=== PATIENT | male | born 1955 | race Caucasian/White ===

== ENCOUNTER → 2016-07-27 | Outpatient (CLI) | payer OTHER | LOC: FIMAGING 07:10 | PROVIDERS: ATTEND Internal Medicine | DX: B18.2 Chronic viral hepatitis C (principal) ==

== ENCOUNTER → 2017-08-09 | Outpatient (CLI) | payer OTHER | LOC: CIMAGING 08:13 | PROVIDERS: ATTEND Internal Medicine | DX: K74.60 Unspecified cirrhosis of liver (principal); K76.9 Liver disease, unspecified | CPT/HCPCS: 76705-PO ==

== ENCOUNTER → 2017-10-09 | Day surgery (SDC) | payer OTHER ==
[~2017-10-09] MED LIST: ALTEPLASE 2 MG VIAL IVP PRN; DEXAMETHASONE 10 MG/ML VIAL IVP ONE; DOXORUBICIN MISC ONE; FLUMAZENIL 0.5 MG/5 ML MDV IVP PRN; GLUCAGON HCL 1 MG VIAL IVP PRN; HEPARIN 10,000 UNIT/10 ML MDV (1,000 UNIT/ML) IVP PRN; IOPAMIDOL (ISOVUE-300) 100 ML BTL ONE; LIDOCAINE 1% 300 MG/30 ML SDV ONE; MEPERIDINE 25 MG/ML SYR IVP PRN; MICRON MICROSPH MISC ONE; MIDAZOLAM 2 MG/2 ML VIAL IVP PRN; NALOXONE HCL 0.4 MG/ML INJ IVP PRN; NS 1,000 ML IV SCH; ONDANSETRON 4 MG/2 ML VIAL IVP ONE; PROTAMINE SULFATE 50 MG/5 ML VIAL IVP PRN; SCOPOLAMINE HYDROBROMIDE 1 MG/3 DAYS PATCH TD ONE; fentaNYL 100 MCG/2 ML INJ IVP PRN; oxyCODONE IR 5 MG TAB PO PRN
--- NOTE | 2017-10-09 10:03 | PDGENHP ---
History & Physical Chief Complaint: CIRRHOSIS; HCC History of Present Illness: POSSIBLE SINGLE RT DOME HCC. HERE FOR TACE. POSIBLE SMALLER LESIONS LT AND RT LOBE. Pertinent Past, Social, Family History: HEP C. NONE SMOKER. PRIOR KIDNEY STONES. DEPRESSION, ANXIETY. Relevant Physical Exam: NO DISCOMFORT. Cardiorespiratory Assessment: RRR, CTA
--- NOTE | 2017-10-09 10:04 | PDPROPOC ---
Sedation Plan of Care Sedation Plan of Care: vital signs stable, mental status noted, patient educated of risks, benefits, alternatives, patient can tolerate sedation ASA Classification: ASA 3 Planned drugs: fentanyl, midazolam Mallampati Score: Class 3 Mallampati Reference Image: Patient passed 3-3-2 rule?: Yes
[2017-10-09 12:40] VITALS: BP 132/88
--- NOTE | 2017-10-09 12:41 | PDRADPN ---
Radiology Procedure Note Date of Procedure: 10/09/17 Radiologist: Elizabet Aldana Anesthesia: IV Sedation Pre-op Diagnosis: HEP C, HCC Post-op Diagnosis: SAME Indication: LUIS CARLOS; TRANSPLANT WORK UP Procedure: SUPERSELECTIVE TACE Finding(s): SINGLE VESSEL FEEDING TUMOR FOUND. Inf/Abcess present in the surg proc area at time of surgery?: No Complications: NONE IMMEDIATELY.
== END | disposition home or self-care (01) ==
LOC: FIMAGING 08:30 → F1N 09:28 → UNDOADMIN 09:28
PROVIDERS: ATTEND Radiology Diagnostic Radiology
PROC: 04L33DZ Occlusion of Hepatic Artery with Intraluminal Device, Percutaneous Approach (ICD-10-PCS; principal; 2017-10-09)
PROC: B4121ZZ Fluoroscopy of Hepatic Artery using Low Osmolar Contrast (ICD-10-PCS; principal; 2017-10-09)
DX: C22.0 Liver cell carcinoma (principal); K74.60 Unspecified cirrhosis of liver; Z87.442 Personal history of urinary calculi; F41.8 Other specified anxiety disorders
CPT/HCPCS: 36246; 36247; 37243; 75726; 99152; 99153; C1769; C1894; J1100; J1644; J1956; J2250; J2310; J3010; J9000; Q9967

== ENCOUNTER 2017-11-13 07:15 | Day surgery (SDC) | payer OTHER ==
[2017-11-13] MEDS ORDERED: FLUMAZENIL 0.5 MG/5 ML MDV IVP PRN (07:30)
[2017-11-13] MEDS ORDERED: GLUCAGON HCL 1 MG VIAL IVP PRN (07:30)
[2017-11-13] MEDS ORDERED: fentaNYL 100 MCG/2 ML INJ IVP PRN (07:30)
[2017-11-13] MEDS ORDERED: PROTAMINE SULFATE 50 MG/5 ML VIAL IVP PRN (07:30)
[2017-11-13] MEDS ORDERED: ALTEPLASE 2 MG VIAL IVP PRN (07:30)
[2017-11-13] MEDS ORDERED: NS 1,000 ML IV SCH (07:30)
[2017-11-13] MEDS ORDERED: MIDAZOLAM 2 MG/2 ML VIAL IVP PRN (07:30)
[2017-11-13] MEDS ORDERED: NALOXONE HCL 0.4 MG/ML INJ IVP PRN (07:30)
[2017-11-13] MEDS ORDERED: HEPARIN 10,000 UNIT/10 ML MDV (1,000 UNIT/ML) IVP PRN (07:30)
[2017-11-13 08:23] LABS: PLATELET COUNT 198 10^3/uL (150-400)
[2017-11-13 08:37] LABS: INR 1.03 (0.83-1.16); PROTIME(PATIENT) 13.7 SEC (12.0-15.0)
--- NOTE | 2017-11-13 09:08 | PDGENHP ---
History & Physical Chief Complaint: HCC. NEW L4 LESION. SAMPLING NEEDED History of Present Illness: S/P TACE ON RT HPEATIC DOME LESION. MULTIPLE NEW LESIONS. LIKELY NOT A TRANSPLANT CANDIDATE AT THIS TIME. Pertinent Past, Social, Family History: SUPPORTIVE . NON SMOKER. Relevant Physical Exam: A X O X 3. NO PAIN. Cardiorespiratory Assessment: RRR, CTA
--- NOTE | 2017-11-13 09:09 | PDPROPOC ---
Sedation Plan of Care Sedation Plan of Care: vital signs stable, mental status noted, patient educated of risks, benefits, alternatives, patient can tolerate sedation ASA Classification: ASA 2 Planned drugs: fentanyl, midazolam Mallampati Score: Class 2 Mallampati Reference Image: Patient passed 3-3-2 rule?: Yes
[2017-11-13] MEDS ORDERED: LIDO/EPI 1% **for epidural** 30 ML SDV ONE (10:31)
[2017-11-13] MEDS ORDERED: BUPIVACAINE 0.5% 30 ML SDV ONE (10:31)
[2017-11-13] MEDS ORDERED: IOPAMIDOL (ISOVUE-M 300) 15 ML VIAL ONE (10:31)
--- NOTE | 2017-11-13 10:48 | PDRADPN ---
Radiology Procedure Note Date of Procedure: 11/13/17 Radiologist: Elizabet Aldana Anesthesia: IV Sedation Pre-op Diagnosis: Hcc Post-op Diagnosis: same Indication: L4 lytic lesion, needing sampling Procedure: L4 biopsy Finding(s): adequate tissue was obtained per pathology Inf/Abcess present in the surg proc area at time of surgery?: No Specimen(s): L4 bone cores.
[2017-11-13 12:25] VITALS: BP 128/85
== END 2017-11-13 11:58 | disposition home or self-care (01) ==
LOC: FIMAGING 07:15
PROVIDERS: ATTEND Radiology Diagnostic Radiology
PROC: 0QB03ZX Excision of Lumbar Vertebra, Percutaneous Approach, Diagnostic (ICD-10-PCS; principal; 2017-11-13 10:54)
DX: C79.51 Secondary malignant neoplasm of bone (principal); C22.0 Liver cell carcinoma
CPT/HCPCS: J2250; J2310; J3010; Q9967

== ENCOUNTER → 2017-11-22 | Outpatient (CLI) | payer OTHER | LOC: FIMAGING 09:09 | PROVIDERS: ATTEND Internal Medicine Hematology & Oncology | DX: C79.51 Secondary malignant neoplasm of bone (principal); C22.9 Malignant neoplasm of liver, not specified as primary or secondary | CPT/HCPCS: 78306; A9503 ==

== ENCOUNTER 2018-01-15 07:49 | Day surgery (SDC) | payer OTHER ==
[2018-01-15] MEDS ORDERED: IOPAMIDOL (ISOVUE-370) 150 ML BTL IV ONE ×2 (08:06→08:08)
[2018-01-15] MEDS ORDERED: methylPREDNISolone SOD SUCC 125 MG/2 ML VIAL IVP ONE (08:10)
[2018-01-15] MEDS ORDERED: PANTOPRAZOLE SODIUM 40 MG VIAL IVP ONE (08:10)
[2018-01-15] MEDS ORDERED: FLUMAZENIL 0.5 MG/5 ML MDV IVP PRN (08:10)
[2018-01-15] MEDS ORDERED: NS 1,000 ML IV ONE (08:10)
[2018-01-15] MEDS ORDERED: HEPARIN 10,000 UNIT/10 ML MDV (1,000 UNIT/ML) IVP PRN (08:10)
[2018-01-15] MEDS ORDERED: NALOXONE HCL 0.4 MG/ML INJ IVP PRN (08:10)
[2018-01-15] MEDS ORDERED: ALTEPLASE 2 MG VIAL IVP PRN (08:10)
[2018-01-15] MEDS ORDERED: fentaNYL 100 MCG/2 ML INJ IVP PRN (08:10)
[2018-01-15] MEDS ORDERED: PROTAMINE SULFATE 50 MG/5 ML VIAL IVP PRN (08:10)
[2018-01-15] MEDS ORDERED: MIDAZOLAM 2 MG/2 ML VIAL IVP PRN (08:10)
[2018-01-15 09:22] LABS: INR 1.14 (0.83-1.16)
--- NOTE | 2018-01-15 09:35 | PDPROPOC ---
Sedation Plan of Care Sedation Plan of Care: vital signs stable, mental status noted, patient educated of risks, benefits, alternatives, patient can tolerate sedation ASA Classification: ASA 3 Planned drugs: fentanyl, midazolam Mallampati Score: Class 2 Mallampati Reference Image: Patient passed 3-3-2 rule?: Yes
--- NOTE | 2018-01-15 09:38 | PDGENHP ---
History & Physical Chief Complaint: HCC History of Present Illness: KNOWN HCC. HEP B. S/P CHEMOEMBOLIZATION. NOW WITH PROGRESSION. HERE FOR Y90 PLANNING. Pertinent Past, Social, Family History: SUPPORTIVE . NON-SMOKER. Relevant Physical Exam: SLIGTLY SLEEPY, MIGHT BE FROM THE SORFENIB. Cardiorespiratory Assessment: RRR, CTA
[2018-01-15 10:38] LABS: PROTIME(PATIENT) 14.8 SEC (12.0-15.0)
[2018-01-15] MEDS ORDERED: IOPAMIDOL (ISOVUE-300) 100 ML BTL ONE (10:45)
[2018-01-15 11:10] VITALS: BP 140/82
[2018-01-15] MEDS ORDERED: OXYCODONE/APAP 5/325 TAB PO PRN (12:51)
--- NOTE | 2018-01-15 13:48 | PDRADPN ---
Radiology Procedure Note Date of Procedure: 01/22/18 Radiologist: Elizabet Aldana Anesthesia: IV Sedation Pre-op Diagnosis: hcc Post-op Diagnosis: same Indication: Y90 TREATMENT PLANNING Procedure: VISCERAL ANGIOGRAM WITH MAPPING Inf/Abcess present in the surg proc area at time of surgery?: No
== END 2018-01-15 14:34 | disposition home or self-care (01) ==
LOC: FIMAGING 07:49
PROVIDERS: ATTEND Radiology Diagnostic Radiology
DX: C22.9 Malignant neoplasm of liver, not specified as primary or secondary (principal); F17.210 Nicotine dependence, cigarettes, uncomplicated
CPT/HCPCS: 36247; 75726; 78201; 99152; 99153; A9540; C1769; C1894; C1760; J1200; J1644; J2250; J2310; J2930; J3010; Q9967

== ENCOUNTER → 2018-01-26 | Day surgery (SDC) | payer OTHER ==
[~2018-01-26] MED LIST changes: -DEXAMETHASONE 10 MG/ML VIAL IVP ONE; -DOXORUBICIN MISC ONE; +FLUMAZENIL 0.5 MG/5 ML MDV IVP ONE; -LIDOCAINE 1% 300 MG/30 ML SDV ONE; -MICRON MICROSPH MISC ONE; +MIDAZOLAM 2 MG/2 ML VIAL ONE; +NALOXONE HCL 0.4 MG/ML INJ ONE; +NS 1,000 ML IV ONE; -NS 1,000 ML IV SCH; -ONDANSETRON 4 MG/2 ML VIAL IVP ONE; +ONDANSETRON 4 MG/2 ML VIAL IVP PRN; +OXYCODONE/APAP 5/325 TAB PO PRN; +PANTOPRAZOLE SODIUM 40 MG VIAL IVP ONE; -SCOPOLAMINE HYDROBROMIDE 1 MG/3 DAYS PATCH TD ONE; +fentaNYL 100 MCG/2 ML INJ ONE; +methylPREDNISolone SOD SUCC 125 MG/2 ML VIAL IVP ONE; -oxyCODONE IR 5 MG TAB PO PRN
[2018-01-26 11:05] LABS: PLATELET COUNT 176 10^3/uL (150-400)
--- NOTE | 2018-01-26 11:40 | PDGENHP ---
History & Physical Chief Complaint: LIVER HCC History of Present Illness: CONTINUED PROGRESSION OF HCC IN RT HEPATIC LOBE Pertinent Past, Social, Family History: ON SORAFINIB. DEPRESSION, ANXIETY. PRIOR KIDNEY STONES. Relevant Physical Exam: SLIGHTLY FATIGED. SLIGHT DECREASE IN APPETITE. Cardiorespiratory Assessment: RRR, CTA
[2018-01-26 11:48] LABS: INR 1.07 (0.83-1.16); PROTIME(PATIENT) 14.1 SEC (12.0-15.0)
[2018-01-26 13:06] VITALS: BP 142/91
--- NOTE | 2018-01-26 13:29 | PDRADPN ---
Radiology Procedure Note Date of Procedure: 01/26/18 Radiologist: Elizabet Aldana Anesthesia: IV Sedation Pre-op Diagnosis: HCC Post-op Diagnosis: same Indication: Y90 treatment Procedure: Y90 radioembolization Inf/Abcess present in the surg proc area at time of surgery?: No
== END | disposition home or self-care (01) ==
LOC: FIMAGING 09:47
PROVIDERS: ATTEND Internal Medicine Hematology & Oncology
PROC: 04L33DZ Occlusion of Hepatic Artery with Intraluminal Device, Percutaneous Approach (ICD-10-PCS; principal; 2018-01-26)
PROC: B4121ZZ Fluoroscopy of Hepatic Artery using Low Osmolar Contrast (ICD-10-PCS; principal; 2018-01-26)
DX: C22.0 Liver cell carcinoma (principal)
CPT/HCPCS: 36247; 37243; 75726; 77790; 78201; 79445; 99152; C1769; C1894; C1760; J1200; J1644; J2250; J2310; J2930; J3010; Q9967

== ENCOUNTER → 2018-02-22 | Outpatient (CLI) | payer OTHER | LOC: FIMAGING 10:35 | PROVIDERS: ATTEND Internal Medicine Hematology & Oncology | DX: C22.9 Malignant neoplasm of liver, not specified as primary or secondary (principal); C79.51 Secondary malignant neoplasm of bone | CPT/HCPCS: 78306; A9503 ==

== ENCOUNTER → 2018-03-16 | Outpatient (CLI) | payer OTHER | LOC: FIMAGING 16:18 | PROVIDERS: ATTEND Radiology Diagnostic Radiology | DX: Z09 Encounter for follow-up examination after completed treatment for conditions other than malignant neoplasm (principal) ==

== ENCOUNTER 2018-04-14 21:49 | Inpatient (IN) | payer OTHER ==
--- NOTE | 2018-04-14 21:59 | EDPHY ---
H & P Time Seen by Provider: 04/14/18 21:59 HPI/ROS: HPI CHIEF COMPLAINT: Abdominal pain. HISTORY OF PRESENT ILLNESS: This is a 62-year-old male, stage IV liver cancer, presents emergency room with abdominal pain. He states approximately 3 hr ago he started developing mid abdominal pain. Nonradiating describes as sharp stabbing center of his abdomen. Associated nausea but no vomiting. Denies urinary symptoms denies back pain, denies chest pain or shortness of breath. No fever. Patient is on chemotherapy. Arrives by private vehicle with his at bedside. Pain is currently 10. Hematology Dr. Marrero Past Medical History: Stage IV liver CA. Past Surgical History: No recent surgery Social History: Denies drugs alcohol tobacco. On chronic opioids. Family History: Noncontributory ROS REVIEW OF SYSTEMS: 10 Systems were reviewed and negative with the exception of the elements mentioned in the history of present illness. Exam Constitutional triage nursing summary reviewed, vital signs reviewed, awake/ alert. Eyes normal conjunctivae and sclera, EOMI, PERRLA. HENT normal inspection, atraumatic, moist mucus membranes, no epistaxis, neck supple/ no meningismus, no raccoon eyes. Respiratory clear to auscultation bilaterally, normal breath sounds, no respiratory distress, no wheezing. Cardiovascular rate normal, regular rhythm, no murmur, no edema, distal pulses normal. Gastrointestinal tender palpation mid abdomen, no peritoneal signs, no rebound , no guarding, normal bowel sounds, no distension, no pulsatile mass. Genitourinary no CVA tenderness. Musculoskeletal no midline vertebral tenderness, full range of motion, no calf swelling, no tenderness of extremities, no meningismus, good pulses, neurovascularly intact. Skin pink, warm, & dry, no rash, skin atraumatic. Neurologic awake, alert and oriented x 3, AAOx3, moves all 4 extremities equally, motor intact, sensory intact, CN II-XII intact, normal cerebellar, normal vision, normal speech. Psychiatric normal mood/affect. Heme/Lymph/Immune no lymphadenopathy. Differential diagnosis includes but is not limited to and in no particular order : Bowel obstruction, appendicitis, gallbladder disease, diverticulitis, colitis , enteritis, perforated viscus, gastritis, GERD, esophagitis, urinary tract infection, pyelonephritis, kidney stones Medical Decision Making: Plan for this patient IV establishment IV fluid bolus , IV Dilaudid 1 mg for pain control, basic blood work, lactic acid, EKG, KUB, CT scan abdomen pelvis with IV contrast Re-evaluation: EKG interpretation by me on record in fypio system. Impression time of EKG 2200: Sinus rhythm rate of 66, no signs of acute ischemia. Some motion artifact seen in V3. No ST elevation. 2330: CT SCAN REVIEWED. THIS SHOWS COLITIS. IV Cipro and IV Flagyl ordered. Blood cultures ordered Trending lactic acids. IV Dilaudid for pain control Patient been ordered 2 L of fluid. IV Cipro and IV Flagyl ordered. Discussed the case with the hospitalist service Dr. Jernigan agrees to admit Source: Patient - Medical/Surgical History Hx Asthma: No Hx Chronic Respiratory Disease: No Hx Diabetes: No Hx Cardiac Disease: No Hx Renal Disease: No Hx Cirrhosis: No Hx Alcoholism: No Hx HIV/AIDS: No Hx Splenectomy or Spleen Trauma: No Other PMH: HEP C - Social History Smoking Status: Never smoked Constitutional: Initial Vital Signs Temperature (C) 36.9 C 04/14/18 22:00 Heart Rate 75 04/14/18 22:00 Respiratory Rate 20 04/14/18 22:00 Blood Pressure 175/105 H 04/14/18 22:00 O2 Sat (%) 99 04/14/18 22:00 O2 Delivery Mode Nasal Cannula O2 (L/minute) 2 Allergies/Adverse Reactions: Penicillins Allergy (Unknown, Verified 09/27/17 17:51) Pt states sister is allergic so he has never taken it Home Medications: Medication Instructions Recorded Hydrochlorothiazide 25 mg PO DAILY 11/17/15 Pantoprazole Sodium [Protonix] 40 mg PO BID 11/17/15 Potassium Chloride 10 meq PO DAILY 11/17/15 Escitalopram Oxalate [Lexapro] 30 mg PO DAILY 09/27/17 Sorafenib Tosylate [Nexavar] 400 mg PO BID 01/15/18 Codeine Sulf [Codeine 30 mg (*)] 30 mg PO Q3 04/15/18 Levothyroxine [Synthroid 112 mcg 112 mcg PO DAILY06 04/15/18 (*)] Medical Decision Making - Data Points Laboratory Results: Laboratory Results 04/15/18 05:45 04/15/18 05:45 Medications Given: Enoxaparin Sodium (Lovenox) 40 mg SC DAILY [facility] Stop: 10/12/18 08:59 Last Admin: 04/15/18 09:11 Dose: 40 mg Escitalopram Oxalate (Lexapro) 30 mg PO DAILY [facility] Stop: 10/12/18 14:59 Last Admin: 04/15/18 15:11 Dose: 30 mg Ciprofloxacin/Dextrose (Cipro 200 Mg (Premix)) 100 mls @ 100 mls/hr IV Q12H [facility] PRN Reason: Protocol Stop: 05/15/18 11:59 Last Admin: 04/15/18 13:22 Dose: 100 mls Metronidazole/Sodium Chloride (Flagyl 500 Mg (Premix)) 100 mls @ 100 mls/hr IV Q8H [facility] PRN Reason: Protocol Stop: 05/15/18 09:59 Last Admin: 04/15/18 17:58 Dose: 100 mls [facility]othy[facility]ine S[facility]) [facility] Stop: 10/12/18 14:59 Last Admin: 04/15/18 15:11 Dose: 112 mcg Morphine Sulfate (Morphine) 1 - 2 mg IVP Q2HRS PRN PRN Reason: Pain, Severe Unable to Take PO Stop: 04/24/18 23:37 Last Admin: 04/15/18 11:53 Dose: 2 mg Oxycodone HCl (Oxycodone Ir) 5 - 10 mg PO Q3HRS PRN PRN Reason: Pain, Severe Able to Take PO Stop: 04/24/18 23:37 Last Admin: 04/15/18 17:55 Dose: 10 mg Senna/Docusate Sodium (Senokot-S) 1 - 2 tab PO BID [facility] PRN Reason: Protocol Stop: 10/12/18 08:59 Last Admin: 04/15/18 09:11 Dose: 2 tab Discontinued Medications Hydromorphone HCl (Dilaudid) 1 mg IVP EDNOW ONE Stop: 04/14/18 22:04 Last Admin: 04/14/18 22:14 Dose: 1 mg Hydromorphone HCl (Dilaudid) 0.5 mg IVP EDNOW ONE Stop: 04/15/18 00:29 Last Admin: 04/15/18 01:03 Dose: Not Given Hydromorphone HCl (Dilaudid) 1 mg IVP EDNOW ONE Stop: 04/15/18 00:33 Last Admin: 04/15/18 00:33 Dose: 1 mg Sodium Chloride (Ns) 1,000 mls @ 0 mls/hr IV EDNOW ONE; Wide Open PRN Reason: Protocol Stop: 04/14/18 22:04 Last Admin: 04/14/18 22:13 Dose: 1,000 mls Sodium Chloride (Ns) 1,000 mls @ 0 mls/hr IV ONCE ONE PRN Reason: Wide Open Stop: 04/14/18 22:20 Last Admin: 04/14/18 23:04 Dose: 1,000 mls Potassium Chloride (Potassium Cl 20 Meq (Premix)) 100 mls @ 50 mls/hr IV EDNOW ONE Stop: 04/15/18 00:40 Last Admin: 04/14/18 23:04 Dose: 100 mls Ciprofloxacin/Dextrose (Cipro 400 Mg (Premix)) 200 mls @ 200 mls/hr IV EDNOW ONE PRN Reason: Protocol Stop: 04/15/18 00:28 Last Admin: 04/15/18 00:13 Dose: 200 mls Metronidazole/Sodium Chloride (Flagyl 500 Mg (Premix)) 100 mls @ 100 mls/hr IV EDNOW ONE PRN Reason: Protocol Stop: 04/15/18 00:28 Last Admin: 04/15/18 02:04 Dose: 100 mls Potassium Chloride/Sodium Chloride (Ns W/ 20 Kcl/L) 1,000 mls @ 100 mls/hr IV ONCE ONE Stop: 04/15/18 09:37 Last Admin: 04/15/18 01:41 Dose: 1,000 mls Magnesium Oxide (Magnesium Oxide) 400 mg PO ONCE ONE Stop: 04/15/18 01:01 Last Admin: 04/15/18 01:40 Dose: 400 mg Promethazine HCl (Phenergan) 6.25 mg IVP ONCE ONE Stop: 04/14/18 22:19 Last Admin: 04/14/18 22:19 Dose: 6.25 mg Point of Care Test Results: Chemistry 04/14/18 04/14/18 22:20 22:17 POC Sodium 141 mEq/L mEq/L (135-145) POC Potassium 2.2 mEq/L L* mEq/L (3.3-5.0) POC Chloride 98 mEq/L mEq/L (97-110) POC BUN 3 mg/dL L mg/dL (7-23) POC Creatinine 0.7 mg/dL mg/dL (0.7-1.3) POC Glucose 141 mg/dL H mg/dL (70-100) POC Troponin I 0.01 ng/mL ng/mL (0.00-0.08) ISTAT H&H 04/14/18 22:17 POC Hgb 16.0 gm/dL gm/dL (13.7-17.5) POC Hct 47 % % (40-51) Departure - Departure Disposition: [facility] Inpatient Acute Clinical Impression: Hepatocellular carcinoma, Hypokalemia, Colitis Abdominal pain Qualifiers: Abdominal location: generalized Qualified Code(s): R10.84 - Generalized abdominal pain Condition: Fair
[2018-04-14] MEDS ORDERED: NS 1,000 ML IV ONE ×2 (22:03→22:19)
[2018-04-14] MEDS ORDERED: HYDROmorphONE/DILAUDID 2 MG/ML INJ IVP ONE (22:03)
[2018-04-14 22:17] LABS: PLATELET COUNT 172 10^3/uL (150-400)
[2018-04-14] MEDS ORDERED: PROMETHAZINE HCL 25 MG/ML INJ ONE (22:17)
[2018-04-14] MEDS ORDERED: PROMETHAZINE HCL 25 MG/ML INJ IVP ONE (22:18)
[2018-04-14] MEDS ORDERED: IOPAMIDOL (ISOVUE-300) 100 ML BTL ONE (22:23)
[2018-04-14 22:24] LABS: INR 1.2 (0.83-1.16); PROTIME(PATIENT) 15.4 SEC (12.0-15.0)
[2018-04-14] MEDS ORDERED: POTASSIUM Cl (KCl) 100 ML IV ONE (22:41)
[2018-04-14] MEDS ORDERED: CIPROFLOXACIN 400 MG/DEXTROSE 200 ML IV ONE (23:29)
[2018-04-14] MEDS ORDERED: NS W/ 20 KCl/L 1,000 ML IV ONE (23:38)
[2018-04-14] MEDS ORDERED: LORazepam 0.5 MG TAB PO PRN (23:38)
[2018-04-14] MEDS ORDERED: ONDANSETRON 4 MG/2 ML VIAL IVP PRN (23:38)
[2018-04-14] MEDS ORDERED: ACETAMINOPHEN 325 MG TAB PO PRN (23:38)
[2018-04-14] MEDS ORDERED: ONDANSETRON DISINTEGRATING 4 MG TAB PO PRN (23:38)
[2018-04-15] MEDS ORDERED: HYDROmorphONE/DILAUDID 2 MG/ML INJ IVP ONE (00:28)
[2018-04-15] MEDS ORDERED: HYDROmorphONE/DILAUDID 1 MG/ML INJ ONE (00:29)
[2018-04-15] MEDS ORDERED: HYDROmorphONE/DILAUDID 1 MG/ML INJ IVP ONE (00:32)
[2018-04-15] MEDS ORDERED: MAGNESIUM OXIDE 400 MG TAB PO ONE (01:00)
[2018-04-15] MEDS ORDERED: POLYETHYLENE GLYCOL 3350 17 GM PKT PO PRN (04:26)
--- NOTE | 2018-04-15 05:17 | GHP ---
DATE OF ADMISSION: 04/14/2018 PRIMARY ONCOLOGIST: Dr. Marrero. Patient provides history, appears reliable. EMR was reviewed and case discussed with ED provider. CHIEF COMPLAINT: Abdominal pain. HISTORY OF PRESENT ILLNESS: This is a very pleasant 62-year-old gentleman with past medical history significant for stage IV hepatocellular carcinoma, treated HCV, anxiety, depression, HTN, GERD, hypot hyroidism, presents to the emergency department today with complaints of several hours of increasing upper abdominal pain that started approximately 3 hours before arriving to the ED. Patient reports m id upper abdominal pain that is sharp, stabbing in nature. The pain does not radiate to his back or into his chest. He does report episode of nausea en route to the emergency department without any vo miting. The patient denies any fevers or chills. He has had declining appetite since December owing a procedure. He denies any melena, hematochezia. He has not passed any gas or had a bowel mov ement recently. The patient does note he has had declining weight. REVIEW OF SYSTEMS: Ten systems reviewed and negative except as noted above. ALLERGIES: Penicillin listed. The patient reports his sister had severe allergy, but he has never h ad any penicillin given to him. HOME MEDICATIONS: Sorafenib, potassium chloride, Protonix, levothyroxine, hydrochlorothiazide, fish oil, escitalopram. PAST MEDICAL HISTORY: Significant for hepatocellular carcinoma stage IV, history of cirrhosis, hep C treated, kidney stones, depression, anxiety, HTN, GERD, hypothyroidism, liver cancer stage IV. We w ill notify Oncology of patient's admission. He is normally followed by Dr. Marrero. PAST SURGICAL HISTORY: Patient reports liver chemoembolization. FAMILY HISTORY: Sister with a penicillin allergy. No family members with liver issues. SOCIAL HISTORY: Patient is , lives with his . Code status is full. PHYSICAL EXAMINATION: VITAL SIGNS: Upon arrival to the emergency department, blood pressure is 125/ 105, heart rate 75, respiratory rate 20, O2 saturation 99% on room air, temperature 36.9. Vital sign s currently available, blood pressure 131/95, heart rate is 100, respiratory rate 16, O2 saturation i s 97% on 2 L by nasal cannula, temperature 36.8. GENERAL: No acute distress. Very pleasant adult g gurvinder, appears slightly older than stated age, who is lying quietly in bed. Does appear quite fat igued and unwell but nontoxic. HEAD: Normocephalic, atraumatic. EYES: Extraocular muscles are grossly intact. Pupils equal, round, decreased reactivity to light bi laterally and symmetric. No scleral icterus or conjunctival injection. ENT: Mucous membranes appea r quite dry. Dentition intact. No nasal discharge. NECK: Supple. Trachea midline. CARDIOVASCULA R: Regular rate and rhythm. No murmurs, rubs, or gallops appreciated. Rate slightly tachy. No kimberly st wall tenderness to palpation. RESPIRATORY: Unlabored breathing. Lungs are clear to auscultation bilaterally. No wheezes, rales, or rhonchi. Patient's lung bases are diminished due to decreased i nspiratory effort. ABDOMEN: Mildly distended. Patient with significant tenderness to palpation upper abdomen and right upper quadrant. No rebound, guarding, or masses appreciated, but exam limited due to patient pain w ith deeper palpation. Hypoactive bowel sounds present. : No suprapubic tenderness to palpation. No Brian catheter in place. EXTREMITIES: Generalized weakness. Patient does move all extremities while lying in bed. He does appear fatigued. Grossly normal otherwise. NEUROLOGIC: Grossly nonfoc al. No facial drooping. Moves all extremities as noted above. Sensation intact. PSYCHIATRIC: Aff ect slightly flat, but patient does appear fatigued and unwell. DATA REVIEWED: WBC 6.30, H and H 15.7 and 43.7, MCV of 87.1, platelet count is 172, neutrophil perce nt 74.4. Sodium is 138, potassium 2.6, chloride is 100, CO2 is 23, anion gap 15, BUN 6, creatinine 0 .7. GFR 60, glucose 142, calcium 9.3, magnesium 1.8, total bilirubin is 2.0, unconjugated 1.2, ALT 6 5, AST is 84, alkaline phosphatase is 148, total protein is 8.6, albumin 4.3, lipase 120. PT is 15.4 , INR 1.20, PTT is 28.3, lactic acid , repeat is 1.2. UA specific gravity 1.021 with pH of 7.0, negative otherwise. EKG reviewed myself, showing normal sinus rhythm, slightly low voltage in multiple leads, Q-wave in t he lead 3, artifact V3, T-wave flattening in multiple leads. Slight T-wave inversion in lead 3. QTc is 466. No acute ST elevations. CT abdomen pelvis showing diffuse distal colonic thickening protocol externus suggesting colitis. Pr obable slight increase in right T8 pedicle mass with moderate to severe associated spinal canal narro wing also equivocally increased. Stable heterogeneous exophytic hepatic mass. Stable lytic L4 and l eft S1 metastases. Cirrhotic liver noted. No definite new liver lesion identified. No biliary dila tation. Gallstones mildly distended gallbladder. Upright abdomen plain film negative for acute findings. Limited bowel gas. No free air. ASSESSMENT AND PLAN: A pleasant 62-year-old gentleman with a history of metastatic stage IV hepatoce llular carcinoma, who presents emergency department with complaints of acute onset of upper abdominal pain. 1. Acute colitis. The patient without any fevers, chills, no leukocytosis. He is currently undergo ing chemotherapy. He has been started on Cipro, Flagyl, which will continue at this time. He has no t had any diarrhea or complaints of melena, hematochezia. He reports some constipation. Bowel progr am will be ordered. Unclear if this is infectious versus ischemic. We will continue antibiotics as noted above. 2. Abdominal pain, upper abdomen, right upper quadrant with history of liver cancer. Supportive car e with morphine, Oxy p.r.n. 3. Hypokalemia, significantly declined. No acute EKG findings, but patient will be monitored on rem ote telemetry. He has been given replacement in the emergency department. Also, will add potassium replacement in his IV fluid for 1 L. We will plan to repeat potassium in the morning. Continue repl acement. Patient's magnesium is 1.8, and this will be repleted for higher threshold replacement. We will monitor on remote tele. 4. Elevated lactate, likely secondary to dehydration versus less likely sepsis. Patient's lactate r apidly improved after IV fluid infusion in the emergency department. Blood cultures were also ordere d. Continue antibiotics as noted above. 5. Hyperglycemia. This is a nonfasting lab. The patient will be monitored with a.m. lab testing. 6. Hyperbilirubinemia secondary to history of liver cancer. Continue to monitor LFTs. 7. Chronic medical issues. 8. Benign essential hypertension. Blood pressures were initially quite elevated, likely related to pain. Blood pressure is much improved at this point. Plan to hold patient's hydrochlorothiazide in setting of significant hypokalemia. The patient's blood pressures are much improved. If he should r equire it, then will consider a p.r.n. dosing for blood pressure control at this time. 9. Hypothyroidism. Resume patient's levothyroxine when med rec available. 10. Gastroesophageal reflux disease. Patient currently asymptomatic. No reflux. Resume proton pum p inhibitor per formulary when med rec available. At this time, patient denies any reflux symptoms. 11. History of anxiety depression. Continue patient's venlafaxine. 12. Fluid, electrolyte, nutrition. IV fluids with potassium as noted above. Monitor electrolytes. Replacement as needed. Patient's diet is advanced to regular as tolerated. Initiate prophylactic l evothyroxine for prophylactic deep vein thrombosis prophylaxis. Sequential compression devices. 13. Code status is full. 14. Disposition: Patient admitted to observation status on the Med Surg floor, Oncology for additio nal pain control. Repeat lab testing. Imaging currently not consistent with any acute findings. Co ntinue plan as noted above. /[id number]/MODL
[2018-04-15 06:46] LABS: PLATELET COUNT 130 10^3/uL (150-400)
--- NOTE | 2018-04-15 07:11 | CPEKG ---
Test Reason : OPEN Blood Pressure : / mmHG Vent. Rate : 066 BPM Atrial Rate : 064 BPM P-R Int : 176 ms QRS Dur : 109 ms QT Int : 444 ms P-R-T Axes : 031 -01 006 degrees QTc Int : 466 ms Sinus rhythm Confirmed by Brennon Franks ([id number]) on 04/15/2018 7:10:32 AM Referred By: Confirmed By:Brennon Franks
[2018-04-15] MEDS: oxyCODONE IR 5 MG TAB PO PRN ×4 (09:10→22:46)
[2018-04-15] MEDS: SENNOSIDES/DOCUSATE SODIUM TAB PO SCH ×2 (09:11→22:47)
[2018-04-15] MEDS: ENOXAPARIN 40 MG/0.4 ML SYR SC SCH (09:11)
[2018-04-15] MEDS ORDERED: PROTOCOL POTASSIUM 1 DOSE MISC PRN (09:13)
--- NOTE | 2018-04-15 09:20 | HOSPPROG ---
Hospitalist Progress Note Assessment/Plan: 62yo M with hep C cirrhosis complicated by stage IV hepatocellular carcinoma here with acute abdominal pain. 1. Acute abdominal pain: CT shows colitis but no diarrhea or infectious sxs. Pain could be liver capsular stretch. No ascites. - Check GI PCR. Continue abx for now, low threshold to dc - If negative infectious work up, could consider steroids - Sorafenib associated with GI perforation but not colitis, doubt contributing - Symptom management 2. Hypokalemia: Due to poor PO. Repleting in IVF. Place on protocol. 3. Elevated lactate: Likely driven by dehydration. Resolved with fluid resuscitation. 4. Stage IV hepatocellular carcinoma: Followed by [facility] - Stable on CT, no new liver lesions. Stable L4 and S1 mets 5. T8 pedicle mass: Increase in size on CT with possible increase in spinal canal narrowing. He is not complaining of any neurologic symptoms. 6. GERD: Continue home PPI VTE ppx: LMWH Code: full Dispo: Will re-evaluate later in day to monitor for resolution of symptoms. If tolerating PO and pain controlled and K better, could consider dc. Subjective: Still with upper abdominal pain. No diarrhea, fevers, vomiting. Objective: Vital Signs Temp Pulse Resp BP Pulse Ox 36.6 C 87 16 135/99 H 97 04/15/18 08:47 04/15/18 08:47 04/15/18 08:47 04/15/18 08:47 04/15/18 08:47 Laboratory Results 04/15/18 05:45 04/15/18 05:45 04/14/18 04/15/18 04/16/18 05:59 05:59 05:59 Intake Total 640 Output Total 200 Balance 440 PT 15.4 SEC (12.0-15.0) H 04/14/18 22:07 INR 1.20 (0.83-1.16) H 04/14/18 22:07 - Physical Exam Constitutional: appears nourished, uncomfortable Eyes: PERRL, anicteric sclera, EOMI Ears, Nose, Mouth, Throat: dry mucous membranes Cardiovascular: regular rate and rhythym, no murmur, rub, or gallop, No edema Respiratory: no respiratory distress, no rales or rhonchi, clear to auscultation Gastrointestinal: tenderness (epigastric area), distension, other (decreased bowel sounds) Genitourinary: no bladder fullness, no bladder tenderness, no renal bruits Skin: no rashes or abrasions, no fluctuance, no induration Musculoskeletal: full muscle strength, no muscle tenderness, normal joint ROM Neurologic: AAOx3, sensation intact bilaterally Psychiatric: interacting appropriately, not anxious, not encephalopathic, thought process linear ICD10 Worksheet Patient Problems: Problems Problem Status Onset Abdominal pain Acute Colitis Acute HCC (hepatocellular carcinoma) Acute Hypokalemia Acute
[2018-04-15] MEDS: CIPROFLOXACIN 200 MG/DEXTROSE 100 ML IV SCH (13:22)
--- NOTE | 2018-04-15 14:06 | PDCONSULT ---
Social Media Marketing Specialist Note: Hematology/oncology consultation note Requesting provider: Da Ervin Reason for consultation: Abdominal pain with history of hepatocellular carcinoma Outpatient oncologist: Jose Marrero History of present illness: Tyrese is a 63-year-old male with history of hepatocellular carcinoma with metastasis, treated hepatitis C virus and hypothyroidism who was admitted for evaluation of abdominal pain. Initially was diagnosed with hepatocellular carcinoma August of 2017. He had a highly suggestive lesion measuring 4.5 x 4.8 cm. He received treatment with TAC E on 10/09/2017. He was evaluated for transplant at his diagnosis but was found to have metastatic disease that was biopsied at the L3 lesion. He was initiated on sore after noted in October of this year with up trending of his AFP. He most recently received y90 on 2017. He has since held his sorafenib for the last 2 days in anticipation for radioembolization. He presents today for acute onset epigastric pain. He states that he had excruciating pain up to 10/10 mostly in his epigastrium. He denies any diarrhea, hematochezia, fevers or chills. He did have a CT scan of the abdomen and pelvis on admission that demonstrated a lytic lesion at T8 which had increased in size alongside some diffuse colonic thickening. Past medical history and surgical history: Metastatic hepatocellular carcinoma as per above Hepatitis-C status post treatment Depression Anxiety Hypertension GERD Hypothyroidism Family history: Noncontributory. Social history: He is and lives locally in [place]. Allergies: Penicillin Medications: Reviewed in [employer] Review of systems: 12 point review systems obtained is otherwise stated in HPI Physical examination: Temp Pulse Resp BP Pulse Ox 37.0 C 80 16 125/85 H 98 04/15/18 12:00 04/15/18 12:00 04/15/18 08:47 04/15/18 12:00 04/15/18 12:00 O2 (L/minute) 2 General: Pleasant-appearing male appears in no acute distress HEENT: Oropharynx clear extra movements are intact pupils equal round react, nasal cannula is in place Cardiovascular: Regular rhythm no murmurs gallops rubs Pulmonary: Clear to auscultation bilaterally Skin: No skin lesions Psych: Appropriate affect Neuro: Moving all extremities Extremities: No cyanosis clubbing or edema Abdomen: Soft nontender nondistended no fluid wave bowel sounds are present no guarding WBC 4.60 10^3/uL (3.80-9.50) 04/15/18 05:45 RBC 4.25 10^6/uL (4.40-6.38) L 04/15/18 05:45 Hgb 13.4 g/dL (13.7-17.5) L 04/15/18 05:45 POC Hgb 16.0 gm/dL (13.7-17.5) 04/14/18 22:17 Hct 37.6 % (40.0-51.0) L 04/15/18 05:45 POC Hct 47 % (40-51) 04/14/18 22:17 MCV 88.5 fL (81.5-99.8) 04/15/18 05:45 MCH 31.5 pg (27.9-34.1) 04/15/18 05:45 MCHC 35.6 g/dL (32.4-36.7) 04/15/18 05:45 RDW 15.2 % (11.5-15.2) 04/15/18 05:45 Plt Count 130 10^3/uL (150-400) L 04/15/18 05:45 MPV 10.5 fL (8.7-11.7) 04/15/18 05:45 Neut % (Auto) 72.9 % (39.3-74.2) 04/15/18 05:45 Lymph % (Auto) 10.0 % (15.0-45.0) L 04/15/18 05:45 [place] % (Auto) 13.0 % (4.5-13.0) 04/15/18 05:45 Eos % (Auto) 3.0 % (0.6-7.6) 04/15/18 05:45 Baso % (Auto) 0.9 % (0.3-1.7) 04/15/18 05:45 Nucleat RBC Rel Count 0.0 % (0.0-0.2) 04/15/18 05:45 Absolute Neuts (auto) 3.35 10^3/uL (1.70-6.50) 04/15/18 05:45 Absolute Lymphs (auto) 0.46 10^3/uL (1.00-3.00) L 04/15/18 05:45 Absolute Monos (auto) 0.60 10^3/uL (0.30-0.80) 04/15/18 05:45 Absolute Eos (auto) 0.14 10^3/uL (0.03-0.40) 04/15/18 05:45 Absolute Basos (auto) 0.04 10^3/uL (0.02-0.10) 04/15/18 05:45 Absolute Nucleated RBC 0.00 10^3/uL (0-0.01) 04/15/18 05:45 Immature Gran % 0.2 % (0.0-1.1) 04/15/18 05:45 Immature Gran # 0.01 10^3/uL (0.00-0.10) 04/15/18 05:45 RBC/WBC/PLT Morphology TNP 04/15/18 05:45 Platelet Estimate TNP 04/15/18 05:45 PT 15.4 SEC (12.0-15.0) H 04/14/18 22:07 INR 1.20 (0.83-1.16) H 04/14/18 22:07 APTT 28.3 SEC (23.0-38.0) 04/14/18 22:07 VBG Lactic Acid 1.0 mmol/L (0.7-2.1) 04/15/18 05:45 POC Sodium 141 mEq/L (135-145) 04/14/18 22:17 Sodium 138 mEq/L (135-145) 04/15/18 05:45 POC Potassium 2.2 mEq/L (3.3-5.0) L* 04/14/18 22:17 Potassium 3.0 mEq/L (3.5-5.2) L 04/15/18 05:45 POC Chloride 98 mEq/L (97-110) 04/14/18 22:17 Chloride 106 mEq/L (97-110) 04/15/18 05:45 Carbon Dioxide 25 mEq/l (22-31) 04/15/18 05:45 Anion Gap 7 mEq/L (6-14) 04/15/18 05:45 POC BUN 3 mg/dL (7-23) L 04/14/18 22:17 BUN 4 mg/dL (7-23) L 04/15/18 05:45 Creatinine 0.6 mg/dL (0.7-1.3) L 04/15/18 05:45 POC Creatinine 0.7 mg/dL (0.7-1.3) 04/14/18 22:17 Estimated GFR > 60 04/15/18 05:45 Glucose 104 mg/dL (70-100) H 04/15/18 05:45 POC Glucose 141 mg/dL (70-100) H 04/14/18 22:17 Calcium 7.4 mg/dL (8.5-10.4) L 04/15/18 05:45 Phosphorus 3.8 mg/dL (2.5-4.5) 04/15/18 05:45 Magnesium 1.7 mg/dL (1.6-2.3) 04/15/18 05:45 Total Bilirubin 1.4 mg/dL (0.1-1.4) 04/15/18 05:45 Conjugated Bilirubin 0.8 mg/dL (0.0-0.5) H 04/14/18 22:07 Unconjugated Bilirubin 1.2 mg/dL (0.0-1.1) H 04/14/18 22:07 AST 67 IU/L (17-59) H 04/15/18 05:45 ALT 56 IU/L (21-72) 04/15/18 05:45 Alkaline Phosphatase 88 IU/L (38-126) 04/15/18 05:45 POC Troponin I 0.01 ng/mL (0.00-0.08) 04/14/18 22:20 Total Protein 6.8 g/dL (6.3-8.2) 04/15/18 05:45 Albumin 3.2 g/dL (3.5-5.0) L 04/15/18 05:45 Lipase 120 IU/L (23-300) 04/14/18 22:07 Urine Color YELLOW 04/14/18 23:35 Urine Appearance CLEAR 04/14/18 23:35 Urine pH 7.0 (5.0-7.5) 04/14/18 23:35 Ur Specific [place] 1.021 (1.002-1.030) 04/14/18 23:35 Urine Protein NEGATIVE (NEGATIVE) 04/14/18 23:35 Urine Ketones NEGATIVE (NEGATIVE) 04/14/18 23:35 Urine Blood NEGATIVE (NEGATIVE) 04/14/18 23:35 Urine Nitrate NEGATIVE (NEGATIVE) 04/14/18 23:35 Urine Bilirubin NEGATIVE (NEGATIVE) 04/14/18 23:35 Urine Urobilinogen NEGATIVE EU (0.2-1.0) 04/14/18 23:35 Ur Leukocyte Esterase NEGATIVE (NEGATIVE) 04/14/18 23:35 Urine Glucose NEGATIVE (NEGATIVE) 04/14/18 23:35 Assessment plan: Tyrese is a 62-year-old male with history of metastatic hepatocellular carcinoma was admitted for intractable abdominal pain found to have colitis. 1. Colitis: He does not have overt diarrhea or fever. He was covered empirically through the emergency room with ciprofloxacin and Flagyl. GI studies including C diff are currently pending. Interestingly, the majority of his pain is mostly in the epigastrium and he does not have other symptoms consistent with colitis. 2. T8 spine lesion: The area within the T8 spine appears to have increased in size. His symptoms are more hyperacute but pain from this lesion would be also consideration. If his pain does not improve I would recommend obtaining an MRI of the T-spine. 3. Hepatocellular carcinoma: I agree with holding his sorafenib for the time being. All questions were answered. He voices understanding the plan.
[2018-04-15] MEDS: LEVOTHYROXINE 112 MCG TAB PO SCH (15:11)
[2018-04-15] MEDS: ESCITALOPRAM OXALATE 10 MG TAB PO SCH (15:11)
[2018-04-15] MEDS ORDERED: POTASSIUM CL 10 MEQ TAB PO ONE (18:46)
--- NOTE | 2018-04-15 20:19 | PDMN ---
Medical Necessity Medical necessity: MCG: M05 abd pain und yr old presents with abd pain with PMH hepatocellular carcinoma with mets- stage IV, ., hep C., CT shows colitis, T8 spine lesion has also increased in size, hypokalemia, elevated lactate, status changed to INPT 04/15 for ongoing med nec. further monitoring and tx of above IVF, IV abx., IV pain,
[2018-04-15] MEDS: PANTOPRAZOLE SODIUM 40 MG TAB PO SCH (22:47)
[2018-04-16] MEDS ORDERED: POTASSIUM CL 10 MEQ TAB PO ONE ×3 (00:45→19:21)
[2018-04-16] MEDS: oxyCODONE IR 5 MG TAB PO PRN ×5 (01:45→23:33)
[2018-04-16] MEDS: CIPROFLOXACIN 200 MG/DEXTROSE 100 ML IV SCH ×3 (01:45→23:19)
[2018-04-16] MEDS: LEVOTHYROXINE 112 MCG TAB PO SCH (05:32)
[2018-04-16] MEDS: ENOXAPARIN 40 MG/0.4 ML SYR SC SCH (08:39)
[2018-04-16] MEDS: PANTOPRAZOLE SODIUM 40 MG TAB PO SCH ×2 (08:40→19:37)
[2018-04-16] MEDS: ESCITALOPRAM OXALATE 10 MG TAB PO SCH (08:41)
[2018-04-16] MEDS: SENNOSIDES/DOCUSATE SODIUM TAB PO SCH ×2 (08:42→19:36)
[2018-04-16] MEDS: HYDROCHLOROTHIAZIDE 25 MG TAB PO SCH (08:49)
--- NOTE | 2018-04-16 14:21 | ASMTCMCOM ---
CM Note CM Note Notes: Pt admitted to hospital for worsening abdominal pain d/t colitis. He has a complex medical hx including Hepatocellular carcinoma and Cirrhosis. No therapies ordered, anticipate he will dc home w/support of his when medically stable. DC Plan: Independent Date Signed: 04/15/2018 01:46 PM Electronically Signed By:Janell Kingston RN
--- NOTE | 2018-04-16 15:48 | HOSPPROG ---
Hospitalist Progress Note Assessment/Plan: # colitis - ischemic vs infections most likely - currently on abx, cont for now # adynamic ileus - likely d/t above - follow with conservative measures # hypoK - improving with repletion # HCC stage IV - currently on sorafenib, follows with Dr Marrero - stable L4 and S1 mets # T8 pedicle mass, mod-severe spinal canal narrowing - no neuro sx # GERD - ppi Subjective: c/o abd pain; no flatus or BM Objective: Vital Signs Temp Pulse Resp BP Pulse Ox 35.8 C L 96 24 H 133/85 H 92 04/16/18 13:02 04/16/18 13:02 04/16/18 13:02 04/16/18 13:02 04/16/18 13:02 Laboratory Results 04/16/18 05:19 04/16/18 10:30 04/15/18 04/16/18 04/17/18 05:59 05:59 05:59 Intake Total 2150 Output Total 450 Balance 1700 PT 15.4 SEC (12.0-15.0) H 04/14/18 22:07 INR 1.20 (0.83-1.16) H 04/14/18 22:07 AXR personally reviewed chart reviewed CT abd reviewed - Physical Exam Constitutional: no apparent distress, appears nourished Cardiovascular: regular rate and rhythym, no murmur, rub, or gallop Respiratory: no respiratory distress, no rales or rhonchi, clear to auscultation Gastrointestinal: distension (moderate), other (soft, mildly diffusely TTP), No guarding ICD10 Worksheet Patient Problems: Problems Problem Status Onset Abdominal pain Acute Hypokalemia Acute Colitis Acute HCC (hepatocellular carcinoma) Acute
--- NOTE | 2018-04-16 16:56 | ASMTCMCOM ---
CM Note CM Note Notes: Patient plan of care reviewed in rounds. He has severe pain and stage IV cancer. Palliative referral made to [facility]. He wound also benefit from Integrative care. I will apply for a [employer] justin for him. Has been living independently with his . CM to follow for needs. Plan: Likely home with family support and [facility]. Date Signed: 04/16/2018 04:55 PM Electronically Signed By:Angelita Lindsey RN
[2018-04-16] MEDS: MAGNESIUM HYDROXIDE 30 ML UDCUP PO PRN (21:52)
--- NOTE | 2018-04-17 04:54 | GCON ---
PALLIATIVE MEDICINE CONSULTATION DATE OF CONSULTATION: 04/16/2018 CHIEF COMPLAINT: Dr. Homer Craft requests goals of care conversation and help with symptom management. HISTORY OF PRESENT ILLNESS: This is a 62-year-old gentleman who has stage IV metastatic hepatocellular carcinoma. He has known metastases to L3 as well as T8. He has undergone treatment with TACE in September of this year. He has had Y90 to his liver lesion and reports that his AFP has been declining dramatically. He has also been on sorafenib. In review of hospital notes, it was said that further radio-embolization was planned and that is why he recently stopped his sorafenib. However, he does not seem to be aware of this. He was admitted to the hospital with colitis. At this point, it is presumed to be infectious, and he is on antibiotics. I asked if there had been any mention that this may be a noninfectious colitis as a side effect of his immunotherapy, and he says this has not been considered or discussed. He currently states his pain is greatly improved. He had never had similar quality pain before being hospitalized. He had some occasional abdominal cramps but nothing that required chronic pain medicine. In addition, he had never had consistent pain in his back either. He is currently planned to get radiation treatment to his back to treat these areas (bone metastases). He has lost 10-15 pounds in the past 6 months. He does focus on eating. He has not had diarrhea. He denies any numbness or tingling or problems with urinary or fecal incontinence. He also denies any weakness. He currently is feeling constipated. He denies any recent flatus. He is very hopeful to continue treatment given the dramatic decrease in his AFP. REVIEW OF SYSTEMS: As indicated in the HPI. PAST MEDICAL HISTORY: In addition to stage IV hepatocellular cancer, he is status post treatment for hepatitis C. He also has depression, anxiety, hypertension, GERD and hypothyroidism. FAMILY HISTORY: As indicated in previous computerized medical records. 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 He has 1 son who is 18 years old. He currently wishes to be full code. His is his MPOA. ALLERGIES: Unclear if truly an allergy to penicillin or if his family has had severe reactions. CURRENT MEDICATIONS: Include as needed Tylenol. As needed Dulcolax. Ciprofloxacin 200 mg IV b.i.d. Lovenox 40 mg subcu daily. Lexapro 30 mg daily. Hydrochlorothiazide 25 mg daily. Lactulose 20 g 3 times daily as needed. Levothyroxine 112 mcg daily. Ativan 0.5-1 mg by mouth every 8 hours as needed. Milk of magnesia 30 cc p.o. daily. Flagyl 500 mg 3 times daily IV. Morphine 1-2 mg IV every 2 hours as needed. Last dose was yesterday around noon. Zofran 4 mg every 4 hours as needed. Oxycodone 5 mg every 3 hours as needed, last dose today around noon. Protonix 40 mg twice daily. MiraLAX 17 g daily as needed. Senna 1-2 tablets daily scheduled. P.r.n. potassium replacement. SIGNIFICANT LABORATORY DATA: Shows a white blood cell count of 8.17 with a hemoglobin of 13.7, and platelets of 150. His INR was 1.2 on date of admission. His lactic acid was 3.7. Today his potassium was 3.1, sodium 136, chloride 104, bicarbonate 22, BUN 5 and creatinine 0.7. His total bilirubin was 1.9. AST 62, ALT 51, with an albumin of 3.2. His alkaline phosphatase was only 85. DIAGNOSTIC STUDIES: Abdominal CT on admission showed diffuse distal colonic thickening and pericolic stranding suggesting colitis as well as an increase in a right T8 pedicle mass with moderate to severe associated spinal canal narrowing. There is an exophytic hepatic mass that was stable as well as lytic L4 and left S1 metastases. ASSESSMENT AND PLAN: This is a 62-year-old gentleman with stage IV metastatic hepatocellular cancer. He currently reports he is responding to treatment and overall remains hopeful. He states he and Dr. Marrero have had conversations about his prognosis and while Dr. Marrero feels he will likely live the next year he was unwilling to say for certain if he thought the patient could live 2 years. He and his have completed medical [id number] paperwork. At this point his is 1st decision maker followed by a close friend on the [facility]. I did discuss the topic of attempts at resuscitation with the patient. I shared with him my concern that for someone with metastatic cancer, attempts at resuscitation were more than likely to cause harm without benefit. I encouraged him to have ongoing conversations about this with Dr. Marrero and to obtain Dr. Marrero's opinion as well. The and patient also had questions about the end of life options act. I explained the process for that, which would involve 2 separate physician visits 2 weeks apart in addition to obtaining the prescription, the patient being able to self ingest, and based on my experience the large number of pills that needed to be taken. I also explained the variability in effect where it could result in in hours or it could take days. They appreciated this information. I also assured them that should his situation ever change, and he no longer responded to treatment or not be a candidate for treatment that hospice would ensure that he had with dignity, although he would not be the one completely in control, as with the end of life options act. They expressed concern that there was something "special" to my visit, and I assured them that supportive and palliative care was becoming standard practice and the standard of care for all patients with stage IV cancer. His did state she then recalled seeing it on [facility]'s website. At this point, his symptoms are well managed with the exception of constipation. He has plenty of as-needed laxatives available. His nurse was made aware and is planning on giving him milk of magnesia. I offered to follow up with the patient as an outpatient at his home; however, at this time they feel that would be distressing to both their son and their dog and therefore have declined this offer. We agreed that we would defer to Dr. Marrero, and when he felt it was necessary, to involve supportive and palliative care services again. In addition to talking about end of life options act, I did discuss with the patient what gave him quality of life. He agreed there were 2 things that were important to him. The 1st was to be able to have meaningful interactions with his family. Intact cognition was very important to him. In addition, if he were to have endless suffering, like what he experienced after the Y 90, without hope of improvement, this would also likely cause him to feel that his quality of life was unacceptable. Please note that approximately 60 minutes have been spent on this consult. Copy requested to: Dr. Marrero [facility] /[id number]/MODL MTDD
[2018-04-17] MEDS: oxyCODONE IR 5 MG TAB PO PRN ×3 (05:27→17:45)
[2018-04-17] MEDS: LEVOTHYROXINE 112 MCG TAB PO SCH (05:27)
[2018-04-17] MEDS: BISACODYL 10 MG SUPP PR PRN (05:27)
[2018-04-17] MEDS ORDERED: POTASSIUM CL 10 MEQ TAB PO ONE (10:37)
--- NOTE | 2018-04-17 12:36 | ASMTCMCOM ---
CM Note CM Note Notes: Patient seen during rounds. He is a 62 year old male with stage IV metastatic cancer. He will not be cleared for discharge today as his electrolytes are still being adjusted. Jeffery anderson requested and hopefully patient can start receiving integrative care services. CM to follow for needs Plan: TBD Date Signed: 04/17/2018 12:35 PM Electronically Signed By:Angelita Lindsey RN
[2018-04-17] MEDS: CIPROFLOXACIN 200 MG/DEXTROSE 100 ML IV SCH (13:12)
[2018-04-17] MEDS: ENOXAPARIN 40 MG/0.4 ML SYR SC SCH (13:13)
[2018-04-17] MEDS: SENNOSIDES/DOCUSATE SODIUM TAB PO SCH ×2 (13:14→20:24)
[2018-04-17] MEDS: HYDROCHLOROTHIAZIDE 25 MG TAB PO SCH (13:14)
[2018-04-17] MEDS: PANTOPRAZOLE SODIUM 40 MG TAB PO SCH ×2 (13:14→20:24)
[2018-04-17] MEDS: ESCITALOPRAM OXALATE 10 MG TAB PO SCH (13:14)
[2018-04-17] MEDS: POTASSIUM Cl (KCl) 100 ML IV SCH ×7 (15:24→23:59)
--- NOTE | 2018-04-17 15:26 | SOAPPROG ---
SOAP Progress Note Assessment/Plan: Assessment: Tyrese is a 62-year-old male with history of metastatic hepatocellular carcinoma who was admitted for abdominal pain. 1. Metastatic hepatocellular carcinoma: As previously receiving sorafenib but has been off her last week. I would not feels underlying colitis that is noted on imaging is secondary to the sorafenib although can create fistulas and bowel perforation. 2. Colitis: Clinically does not have any other signs or symptoms of colitis aside from the abdominal pain. Does not have any diarrhea if anything has constipation. He was on ciprofloxacin and Flagyl which is being discontinued today. 3. Abdominal pain: This could be secondary to his colitis versus ongoing constipation. Clinically he is improving. His abdominal pain is better tomorrow could potentially go home. 4. Hypokalemia: This is being replaced today. 04/17/18 15:20 Subjective: No acute events overnight. Went for radiation today. States the abdominal pain is improved. He has no diarrhea. Objective: Vital Signs Temp Pulse Resp BP Pulse Ox 37.2 C 88 18 120/84 H 96 04/17/18 11:59 04/17/18 11:59 04/17/18 11:59 04/17/18 11:59 04/17/18 11:59 Laboratory Results 04/16/18 05:19 04/17/18 05:01 04/16/18 04/17/18 04/18/18 05:59 05:59 05:59 Intake Total 2150 1500 Output Total 450 625 Balance 1700 875 PT 15.4 SEC (12.0-15.0) H 04/14/18 22:07 INR 1.20 (0.83-1.16) H 04/14/18 22:07 General: Pleasant-appearing male in no acute distress Cardiovascular: Regular rhythm Pulmonary: Clear to auscultation Abdomen: Soft nontender nondistended bowel sounds are present no rebound no guarding Extremities: No cyanosis clubbing ICD10 Worksheet Patient Problems: Problems Problem Status Onset Abdominal pain Acute Colitis Acute HCC (hepatocellular carcinoma) Acute Hypokalemia Acute
--- NOTE | 2018-04-17 15:34 | HOSPPROG ---
Hospitalist Progress Note Assessment/Plan: # colitis - ischemic vs infectious? also consider d/t sorafenib - stopping abx today - i think this has mainly resolved at this point # adynamic ileus - improved today; AXR still shows constipation - cont with bowel protocol today # hypoK - still too low for safe discharge; Mg ok - repleting IV today - recheck tomorrow # HCC stage IV - currently on sorafenib, follows with Dr Marrero - stable L4 and S1 mets # T8 pedicle mass, mod-severe spinal canal narrowing - no neuro sx # GERD - ppi Subjective: had a BM this morning Objective: Vital Signs Temp Pulse Resp BP Pulse Ox 37.2 C 88 18 120/84 H 96 04/17/18 11:59 04/17/18 11:59 04/17/18 11:59 04/17/18 11:59 04/17/18 11:59 Laboratory Results 04/16/18 05:19 04/17/18 05:01 04/16/18 04/17/18 04/18/18 05:59 05:59 05:59 Intake Total 2150 1500 Output Total 450 625 Balance 1700 875 PT 15.4 SEC (12.0-15.0) H 04/14/18 22:07 INR 1.20 (0.83-1.16) H 04/14/18 22:[address] Anna THACKER personally reviewed - Physical Exam Constitutional: no apparent distress, appears nourished Cardiovascular: regular rate and rhythym, no murmur, rub, or gallop Respiratory: no respiratory distress, no rales or rhonchi, clear to auscultation Gastrointestinal: soft, non-tender abdomen, No ascites, No flores's sign ICD10 Worksheet Patient Problems: Problems Problem Status Onset Abdominal pain Acute Hypokalemia Acute Colitis Acute HCC (hepatocellular carcinoma) Acute
[2018-04-17] MEDS: MAGNESIUM HYDROXIDE 30 ML UDCUP PO PRN (17:40)
[2018-04-18] MEDS: oxyCODONE IR 5 MG TAB PO PRN ×5 (00:31→18:15)
[2018-04-18] MEDS: LACTULOSE 20 GM/30 ML UDCUP PO PRN (03:35)
[2018-04-18 05:27] LABS: PLATELET COUNT 141 10^3/uL (150-400)
[2018-04-18] MEDS: LEVOTHYROXINE 112 MCG TAB PO SCH (05:56)
[2018-04-18] MEDS: BISACODYL 10 MG SUPP PR PRN (06:00)
[2018-04-18] MEDS ORDERED: POTASSIUM Cl (KCl) 100 ML IV SCH (07:00)
[2018-04-18] MEDS: POTASSIUM Cl (KCl) 100 ML IV SCH ×4 (08:01→22:17)
[2018-04-18] MEDS: ESCITALOPRAM OXALATE 10 MG TAB PO SCH (10:18)
[2018-04-18] MEDS: PANTOPRAZOLE SODIUM 40 MG TAB PO SCH ×2 (10:18→21:15)
[2018-04-18] MEDS: SENNOSIDES/DOCUSATE SODIUM TAB PO SCH ×2 (10:18→21:15)
[2018-04-18] MEDS: ENOXAPARIN 40 MG/0.4 ML SYR SC SCH (10:19)
[2018-04-18] MEDS: HYDROCHLOROTHIAZIDE 25 MG TAB PO SCH (11:46)
--- NOTE | 2018-04-18 14:11 | HOSPPROG ---
Hospitalist Progress Note Assessment/Plan: 62 yo male with metastatic hepatocellular carcinoma admitted with acute abd pain # colitis -CT Abd c/w diffuse thickening of the colon and mild mesenteric stranding and trace adjacent free fluide - ischemic vs infectious? also consider d/t sorafenib - initially treated with abx from admission through 04/17. #abd pain # adynamic ileus - improved today; AXR still shows constipation - cont with bowel protocol today # Acute on chronic hypoK - still too low for safe discharge; Mg ok - recheck tomorrow # HCC stage IV - currently on sorafenib, follows with Dr Marrero - stable L4 and S1 mets # T8 pedicle mass, mod-severe spinal canal narrowing - no neuro sx # GERD - ppi #Dehydration, minimal oral intake. Will start IVF Plan: His major complaint today is abd discomfort and abd distention. A review of his CT scan is c/w above. There was e/o of a cirrhotic liver but minimal ascites. Today he c/o worsening distention. He is passing gas. No BM. They are requesting a GI consult. Will order and abd US as well. For now cont with scheduled Protonix BID and stools softners. He also reports long hx of chronic hypokalemia. Will hold HCTZ. cont to replace. Recheck Mg. Subjective: distended abdomen Objective: Vital Signs Temp Pulse Resp BP Pulse Ox 36.8 C 94 15 131/85 H 92 04/18/18 12:00 04/18/18 12:00 04/18/18 12:00 04/18/18 12:00 04/18/18 12:00 Microbiology 04/18/18 04:00 Gastrointestinal Tract Panel (PCR) - Final Stool No Organism Detected By Pcr Laboratory Results 04/18/18 05:04 04/18/18 05:04 04/17/18 04/18/18 04/19/18 05:59 05:59 05:59 Intake Total 1500 1800 Output Total 625 700 100 Balance 875 1100 -100 PT 15.4 SEC (12.0-15.0) H 04/14/18 22:07 INR 1.20 (0.83-1.16) H 04/14/18 22:07 - Physical Exam Constitutional: chronically ill appearing Eyes: PERRL Ears, Nose, Mouth, Throat: moist mucous membranes, hearing normal Cardiovascular: regular rate and rhythym, No edema Respiratory: no respiratory distress, no rales or rhonchi, clear to auscultation Gastrointestinal: distension, No tenderness Skin: warm Neurologic: AAOx3 Psychiatric: interacting appropriately, not anxious, not encephalopathic Lymph, Heme, Immunologic: No petechiae ICD10 Worksheet Patient Problems: Problems Problem Status Onset Abdominal pain Acute Colitis Acute HCC (hepatocellular carcinoma) Acute Hypokalemia Acute
[2018-04-18] MEDS ORDERED: NS W/ 20 KCl/L 1,000 ML IV SCH (14:15)
--- NOTE | 2018-04-18 14:33 | ASMTCMCOM ---
CM Note CM Note Notes: Patient plan of care reviewed in rounds.62 year old male with Stage IV metastatic cancer. Lives with his and son in [place] potassium remains low, repleted. Had radiation therapy today. Planned GI consult. No current needs identified. Currently denies need for palliative care support. CM to follow for needs. Plan; Likely to go home with family support when medically cleared for discharge. Date Signed: 04/18/2018 02:32 PM Electronically Signed By:Angelita Lindsey RN
--- NOTE | 2018-04-18 18:55 | SOAPPROG ---
SOAP Progress Note Assessment/Plan: Assessment: Tyrese is a 62-year-old male with history of metastatic hepatocellular carcinoma who was admitted for abdominal pain. 1. Metastatic hepatocellular carcinoma: As previously receiving sorafenib but has been off her last week. I would not feels underlying colitis that is noted on imaging is secondary to the sorafenib although can create fistulas and bowel perforation. 2. Abdominal pain: We have asked GI to evaluate him. Some of this could be secondary to the Y90 alongside ongoing constipation. 04/18/18 18:54 Subjective: He states that his abdominal pain slightly worsened yesterday. He is still passing gas. He has no significant bowel movements. No diarrhea. Objective: Vital Signs Temp Pulse Resp BP Pulse Ox 37.1 C 91 14 125/89 H 90 L 04/18/18 15:33 04/18/18 15:33 04/18/18 15:33 04/18/18 15:33 04/18/18 15:33 Microbiology 04/18/18 04:00 Gastrointestinal Tract Panel (PCR) - Final Stool No Organism Detected By Pcr Laboratory Results 04/18/18 05:04 04/18/18 17:35 04/17/18 04/18/18 04/19/18 05:59 05:59 05:59 Intake Total 1500 1800 Output Total 625 700 100 Balance 875 1100 -100 PT 15.4 SEC (12.0-15.0) H 04/14/18 22:07 INR 1.20 (0.83-1.16) H 04/14/18 22:07 General: Pleasant appearing male appears in no acute distress Cardiovascular regular rhythm Pulmonary: Clear to auscultation bilaterally GI: Distended abdomen tympanic bowel sounds are present Extremities no cyanosis or clubbing Psych: Appropriate affect ICD10 Worksheet Patient Problems: Problems Problem Status Onset Abdominal pain Acute Colitis Acute HCC (hepatocellular carcinoma) Acute Hypokalemia Acute
[2018-04-18] MEDS: ERTAPENEM 1 GM in NS 100 ML IV SCH (21:16)
[2018-04-19] MEDS: LACTULOSE 20 GM/30 ML UDCUP PO PRN (05:51)
[2018-04-19] MEDS: LEVOTHYROXINE 112 MCG TAB PO SCH (05:51)
[2018-04-19] MEDS: MAGNESIUM HYDROXIDE 30 ML UDCUP PO PRN (05:55)
[2018-04-19] MEDS: POTASSIUM Cl (KCl) 100 ML IV SCH ×3 (06:38→17:00)
[2018-04-19] MEDS: oxyCODONE IR 5 MG TAB PO PRN ×3 (09:07→18:04)
[2018-04-19] MEDS: PANTOPRAZOLE SODIUM 40 MG TAB PO SCH ×2 (09:07→20:47)
[2018-04-19] MEDS: ESCITALOPRAM OXALATE 10 MG TAB PO SCH (09:07)
[2018-04-19] MEDS: POLYETHYLENE GLYCOL 3350 17 GM PKT PO SCH ×4 (09:08→20:50)
[2018-04-19] MEDS: ENOXAPARIN 40 MG/0.4 ML SYR SC SCH (09:08)
--- NOTE | 2018-04-19 10:23 | SOAPPROG ---
SOAP Progress Note Assessment/Plan: Assessment: Tyrese is a 62-year-old male with history of metastatic hepatocellular carcinoma who was admitted for abdominal pain. 1. Metastatic hepatocellular carcinoma: Previously receiving sorafenib but has been off for the last week. I am not sure sorafenib is the underlying cause of his colitis demonstrated on the imaging as he has been off for quite sometime now. 2. Abdominal pain: Appreciate GI input. He did have an ultrasound yesterday that was concerning for possible cholecystitis. He is afebrile and his abdominal pain is more diffuse than limited in the upper right quadrant. I do think the HIDA scan is worthwhile for tomorrow. Differential also includes Y 90 associated ischemic colitis versus infection that might resolve on its own. I agree with treating his constipation aggressively and see if that improves his symptoms. 04/19/18 10:20 Subjective: Tyrese reports his abdominal pain is essentially unchanged. He did have 1 bowel movement but no wei diarrhea. No chest pain shortness of breath. No blood in the stool. Objective: Vital Signs Temp Pulse Resp BP Pulse Ox 36.8 C 83 16 135/90 H 91 L 04/19/18 07:18 04/19/18 07:18 04/19/18 07:18 04/19/18 07:18 04/19/18 07:18 Microbiology 04/18/18 04:00 Gastrointestinal Tract Panel (PCR) - Final Stool No Organism Detected By Pcr Laboratory Results 04/18/18 05:04 04/19/18 04:52 04/18/18 04/19/18 04/20/18 05:59 05:59 05:59 Intake Total 1800 1900 Output Total 700 700 Balance 1100 1200 PT 15.4 SEC (12.0-15.0) H 04/14/18 22:07 INR 1.20 (0.83-1.16) H 04/14/18 22:07 General: Pleasant-appearing male appears in no acute distress HEENT: Oropharynx is clear extraocular movements are intact Pulmonary: Clear to auscultation bilaterally Cardiovascular: Regular rate and rhythm Skin: No skin lesions Extremities: No cyanosis clubbing or edema GI: Distended, tympanic, slight tenderness throughout on deep palpation Psych: Appropriate affect ICD10 Worksheet Patient Problems: Problems Problem Status Onset Abdominal pain Acute Colitis Acute HCC (hepatocellular carcinoma) Acute Hypokalemia Acute
--- NOTE | 2018-04-19 11:45 | GCON ---
DATE OF CONSULTATION: 04/18/2018 REFERRING PHYSICIAN: Gray Castillo MD REASON FOR CONSULTATION: Abdominal pain and colonic thickening on CT. Dear Dr. Castillo: Thank you very kindly for asking me to evaluate the patient in consultation for a chief complaint of abdominal pain. He is an unfortunate 62-year-old gentleman with cirrhosis from hepatitis C, which rueda s been treated and cured, but has been undergoing therapy with sorafenib and had a single Y90 radioab lation therapy in December. He developed significant right middle quadrant and right lateral abdomi nal pain on Monday that was quite severe. This was associated initially with a few episodes of korina rrhea that were nonbloody. Since then, he has been somewhat without appetite. He denies any specifi c heartburn or dysphagia, and there has been no vomiting. He has been unable to defecate since being in the hospital. Initial CT imaging showed his stable hepatocellular carcinoma lesion in the dome o f the liver, along with diffuse colonic thickening and pericolonic stranding suggesting colitis. The mass in the liver was exophytic, but relatively unchanged from previous imaging. There were also st able lytic lesions to the bone. His gallbladder was distended, with possible stones. An ultrasound done subsequent to this showed gallbladder wall thickening with hyperemia, distention and sludge, but no biliary ductal dilation. He did have a small amount of ascites. Since admission, the patient has been doing better, but he continues to feel constipated and bloated. His pain is improved. He has not had any fever. His white count has been normal. He has not had any further diarrhea or vomiting. He has been tolerating some intermittent food but is not really ea ting much because he does not have an appetite. I am asked to assist with further evaluation and man agement. PAST MEDICAL HISTORY: 1. Significant for hepatitis C-related cirrhosis complicated by hepatocellular carcinoma with metast atic disease. This has been treated with sorafenib and with Y90 radioembolization. 2. Anxiety, hypertension, GERD, hypothyroidism, depression. FAMILY HISTORY: Negative for liver disease, hepatitis C, or colon cancer. SOCIAL HISTORY: He is , lives locally in [place]. PAST SURGICAL HISTORY: He has had Y90 radioembolization of his liver tumor on January 26, 2018. Shelley acosta is planning for possible re-embolization of the tumor. ALLERGIES: Penicillin. MEDICATIONS: On admission include sorafenib, Protonix, levothyroxine, hydrochlorothiazide, citalopra m, fish oil, and potassium. REVIEW OF SYSTEMS: CONSTITUTIONAL: Denies fever, chills, or night sweats. HEENT: Denies headache. No throat pain. No difficulty swallowing. PULMONARY: No cough or shortness of breath. CARDIOVAS CULAR: Denies chest pain or palpitations. GI: He has diffuse abdominal bloating and some mild disc omfort. He feels constipated. He has had no appetite, a little bit of nausea, otherwise negative. RHEUMATOLOGIC: No focal joint pain. He has not noted any focal joint swelling or warmth. DERMATOLOG IC: He denies pruritus or jaundice. He has no hives or rash. NEURO: He has not noted any focal pa resthesias or focal weakness. He has not had any falls. HEMATOLOGIC: He has had some bruising from Lovenox shots on his abdomen since admission. Denies epistaxis. He denies any history of clotting problems or bleeding disorders. ENDOCRINE: He feels a bit cold all the time. He is known to be pre tty hypothyroid. However, he does also report thirst. GENITOURINARY: He denies any overt flank pain or dysuria. He has not noted any blood in his urine. PHYSICAL EXAM: VITAL SIGNS: Blood pressure today is 135/90. His mean arterial pressure is 105. Hi s heart rate is 83. Respirations are 16. His oxygenation is 93% on 2 L nasal cannula. T-max is 36.8 . GENERAL: Comfortable-appearing male in no acute distress. HEENT: Normocephalic, atraumatic. Sc lerae anicteric. Oropharynx is clear. I do not appreciate a thyroid goiter. There is no JVD or car otid bruit. PULMONARY: Clear to auscultation bilaterally, without rales. CARDIOVASCULAR: Regular rate and rhythm, without murmur, rub, or gallop. GI: Bowel sounds are fairly hypoactive. His abdom en is tympanic centrally. There is some mild discomfort to deep palpation. No rebound. No guarding . No obvious ascites that I can appreciate, but this is possible. I do not appreciate a fluid wave. There is no active herniation. No caput medusa. I cannot appreciate organomegaly. EXTREMITIES: No clubbing. No palmar erythema. SKIN: A little bit pale, but good turgor, warm and dry. NEURO: Alert to person, place, and time. Speech is normal and fluent. He is appropriate in his history and answering questions. His motor exam is nonfocal. I do not appreciate any facial nerve deficits for his cranial nerves. LABORATORY DATA: Database includes the following: His white blood count is 5.3, with a hematocrit o f 34.8, MCV of 86. Platelets are 141. INR is 1.2. Sodium 136. Potassium is low at 2.9, but correc jacobo to 3.4, with IV potassium. Chloride 101, bicarbonate 25, BUN 5, creatinine 0.6. Total bilirubin is 1.9, with a direct of 0.8. Unconjugated bilirubin is 1.1. AST 50, ALT 44, alkaline phosphatase 70, albumin 3.1, with a total protein of 6.6. TSH is 14.7. Lipase on admission was normal at 120 on April 14. IMAGING: Includes a CT scan of the abdomen and pelvis on 04/14/2018, which has been reviewed. This reveals no significant change and an exophytic heterogeneous mass in the dome of the liver. It is 5. 1 x 4.2 cm and 3.5 cm craniocaudally, which has previously measured similarly. The liver is cirrhoti c appearing with heterogeneous enhancement of the right lobe, similar to previous. No new liver lesi on is identified. There is no biliary dilatation. The gallbladder is distended, with possible stone s. There is no significant gallbladder wall thickening. The spleen is 14.6 cm. There is a nonobstr ucting 3 mm left renal stone. The colon is diffusely thickened from the splenic flexure to the rectu m with very mild adjacent mesenteric stranding. There is a small amount of ascites that is perihepat ic. There are bony lytic lesions as described in the report and not detailed here. Further studies included an abdominal x-ray on 04/16/2018. This showed bilateral atelectasis. No evidence of mechan ical bowel obstruction. There are no dilated bowel loops or pneumoperitoneum. There is right-sided constipation, with mild gaseous distention of the colon. Abdominal ultrasound on April 18, 2018, showed gallbladder distention with sludge and hyperemia and hypervascularity consistent with possible acute cholecystitis, but I think these findings can also be seen in a fasted patient with cirrhosis. IMPRESSION: 1. Abdominal pain, principally right middle quadrant and right lateral. 2. Constipation. 3. Initial diarrhea at the time of his presentation with nausea. 4. Anorexia. 5. Hepatocellular carcinoma in the setting of hepatitis C and known cirrhosis, undergoing treatment with Y90 embolization and sorafenib therapy. 6. Colonic thickening on CT scan, with mild pericolonic stranding consistent with an acute colitis. 7. Radiographic abnormalities to the gallbladder, predominantly distention, wall thickening and slud ge. RECOMMENDATIONS: 1. I had discussed with the patient today a plan of care that could include upper endoscopy and colo noscopy predominantly to evaluate his abdominal pain and the colonic findings of thickening. He has had a colonoscopy about 2 years ago that was normal, and I think the finding on the CT is an acute co litis. It could be something infectious or ischemic, but should resolve, and I do not think the colo noscopy is mandatory unless he does not improve. 2. I think his current symptoms are mostly due to constipation. 3. A HIDA scan would be beneficial to evaluate his ultrasound findings and abdominal pain. Mostly, I am looking for gallbladder filling and proper emptying. 4. If his HIDA scan is markedly abnormal, then surgical consultation could be considered, although h e is a pretty high risk for surgical intervention for cholecystectomy. 5. Two-way of the abdomen today. 6. Discontinue all of his other bowel regimen in favor of MiraLAX 17 g t.i.d. 7. Correct his hypothyroidism and electrolyte abnormalities as you are doing. 8. We will reconvene after the next 24 hours to decide on what his HIDA scan showed, how his respons e to medical management of his constipation has been and for further discussions of whether endoscopi c and colonoscopy evaluations are worth pursuing. 9. If he is able to have a bowel movement, I would send a stool study for both C diff and PCR for in fection. 10. I believe it would be reasonable to discontinue antibiotics if his HIDA scan is unremarkable and he continues to improve. I am not certain what we are treating with the antibiotic therapy. It see ms initially when he came in with an abdominal crisis, it was thought perhaps his liver lesion had an abscess, but I do not think this is the case, and I believe he could have these discontinued. 11. Further recommendations to follow. /[id number]/MODL
--- NOTE | 2018-04-19 13:56 | HOSPPROG ---
Hospitalist Progress Note Assessment/Plan: 62 yo male with metastatic hepatocellular carcinoma admitted with acute abd pain #Abd pain with CT evidence concerning for Colitis and US evidence concerning for acute cholecystitis -Was initially treated with abx and these were stopped. He was started on Ertapenem on 04/18 p.m -HIDA scan tomorrow for confirmation -GI following, awaiting further reccs # Query colitis -CT Abd c/w diffuse thickening of the colon and mild mesenteric stranding and trace adjacent free fluide - ischemic vs infectious? also consider d/t sorafenib - initially treated with abx from admission through 04/17. #Query cholecystitis: per above # adynamic ileus/constipation -Has had several BM's at this poing # Acute on chronic hypoK -improving -holding HCTZ -Mg ok # HCC stage IV - currently on sorafenib, follows with Dr Marrero - stable L4 and S1 mets # T8 pedicle mass, mod-severe spinal canal narrowing - no neuro sx # GERD - ppi #Dehydration, resolved #Hypothyroidism: -Levothyroxine was recently increased by his oncologist 3-4 weeks ago. He can f/ u for repeat testing Plan: -GI following -HIDA tomorrow -Ertapenem -Lovenox for DVT proph Subjective: no cp or sob. no n/v. still with some abd pain but better Objective: Vital Signs Temp Pulse Resp BP Pulse Ox 36.8 C 83 16 135/90 H 91 L 04/19/18 07:18 04/19/18 07:18 04/19/18 07:18 04/19/18 07:18 04/19/18 07:18 Microbiology 04/18/18 04:00 Gastrointestinal Tract Panel (PCR) - Final Stool No Organism Detected By Pcr Laboratory Results 04/18/18 05:04 04/19/18 04:52 04/18/18 04/19/18 04/20/18 05:59 05:59 05:59 Intake Total 1800 1900 Output Total 700 700 Balance 1100 1200 PT 15.4 SEC (12.0-15.0) H 04/14/18 22:07 INR 1.20 (0.83-1.16) H 04/14/18 22:07 - Physical Exam Constitutional: no apparent distress Eyes: PERRL Ears, Nose, Mouth, Throat: moist mucous membranes, hearing normal Cardiovascular: regular rate and rhythym, no murmur, rub, or gallop, systolic murmur Respiratory: no respiratory distress, no rales or rhonchi, clear to auscultation Gastrointestinal: distension, No tenderness Skin: warm Neurologic: AAOx3 Psychiatric: interacting appropriately, not anxious, not encephalopathic Lymph, Heme, Immunologic: No petechiae ICD10 Worksheet Patient Problems: Problems Problem Status Onset Abdominal pain Acute Colitis Acute HCC (hepatocellular carcinoma) Acute Hypokalemia Acute
[2018-04-19] MEDS: ERTAPENEM 1 GM in NS 100 ML IV SCH (18:03)
[2018-04-19] MEDS ORDERED: POTASSIUM CL 10 MEQ TAB PO ONE (20:36)
[2018-04-20] MEDS: oxyCODONE IR 5 MG TAB PO PRN (01:31)
[2018-04-20 05:42] LABS: PLATELET COUNT 195 10^3/uL (150-400)
[2018-04-20] MEDS: LEVOTHYROXINE 112 MCG TAB PO SCH (06:13)
[2018-04-20 08:29] VITALS: BP 125/85
[2018-04-20] MEDS ORDERED: POTASSIUM CL 10 MEQ TAB PO ONE (12:09)
[2018-04-20] MEDS: POLYETHYLENE GLYCOL 3350 17 GM PKT PO SCH (12:10)
[2018-04-20] MEDS: ESCITALOPRAM OXALATE 10 MG TAB PO SCH (12:11)
[2018-04-20] MEDS: ENOXAPARIN 40 MG/0.4 ML SYR SC SCH (12:11)
[2018-04-20] MEDS: PANTOPRAZOLE SODIUM 40 MG TAB PO SCH (12:11)
--- NOTE | 2018-04-20 12:43 | ASMTCMCOM ---
CM Note CM Note Notes: Patient plan of care reviewed, 62 year old male with stage !V metastatic disease presents with abdominal pain His HIDA scan is negative for cholecystitis Continues to have diffuse abdominal pain. CM to follow for discharge needs. Plan: Likely to discharge to home when medically stable Date Signed: 04/20/2018 12:43 PM Electronically Signed By:Angelita Lindsey RN
--- NOTE | 2018-04-20 15:21 | SOAPPROG ---
SOAP Progress Note Assessment/Plan: Assessment: Tyrese is a 62-year-old male with history of metastatic hepatocellular carcinoma who was admitted for abdominal pain. 1. Metastatic hepatocellular carcinoma: Previously receiving sorafenib but has been off for the last week. I am not sure sorafenib is the underlying cause of his colitis demonstrated on the imaging as he has been off for quite sometime now. 2. Abdominal pain: Appreciate GI input. Unclear what the cause of the abdominal pain is. Some of the colitis could be secondary to Y 90 but again this will be difficult to fully proved. He also has fairly constipated. Agree with bowel regimen. He would like to go home today as he has not made much progress as abdominal pain is fairly well-controlled now compared to admission. 04/20/18 15:20 Subjective: Overall he reports his abdominal pain is essentially unchanged. He is still fairly constipated not had a bowel movement today. Objective: Vital Signs Temp Pulse Resp BP Pulse Ox 36.6 C 84 18 125/85 H 94 04/20/18 08:28 04/20/18 08:28 04/20/18 08:28 04/20/18 08:28 04/20/18 08:28 Laboratory Results 04/20/18 04:48 04/20/18 04:48 04/19/18 04/20/18 04/21/18 05:59 05:59 05:59 Intake Total 1900 1100 Output Total 700 440 Balance 1200 660 PT 15.4 SEC (12.0-15.0) H 04/14/18 22:07 INR 1.20 (0.83-1.16) H 04/14/18 22:07 General: Pleasant-appearing male in no acute distress HEENT: Oropharynx is clear extraocular movements are intact Pulmonary: Clear to auscultation bilaterally Cardiovascular: Regular rhythm Abdomen: Distended, tympanic, bowel sounds are present Extremities: No cyanosis clubbing or edema ICD10 Worksheet Patient Problems: Problems Problem Status Onset Abdominal pain Acute Colitis Acute HCC (hepatocellular carcinoma) Acute Hypokalemia Acute
--- NOTE | 2018-04-20 16:00 | ASMTLACE ---
LACE Length of stay for Answers: 4-6 days current admission Comorbidities - select Answers: Any tumor (including all that apply lymphoma or leukemia) Other Notes: Hep C cirrhosis # of Emergency department Answers: 1-2 visits in the last 6 months Social determinants Answers: Mental health diagnosis (anxiety, depression, pers onality disorders, etc.) Score: 11 Date Signed: 04/20/2018 03:59 PM Electronically Signed By:Angelita Lindsey RN
--- NOTE | 2018-04-20 16:07 | PDDCSUM ---
Discharge Summary Discharge Summary: 62 yo male with metastatic hepatocellular carcinoma admitted with acute abd pain. The etiology of the abdominal pain is unclear but felt to be multifactorial but primarily due to constipation. He was evaluated by Gastroenterology. He had CT e/o colitis and was initially treated with abx. He did have US concerning for cholecystitis and abx were continued. He had a HIDA scan which was initially reported to be unremarkable. However, upon further review, the HIDA scan report had an addendum which revealed possible acute cholecystitis. The pt was then reexamine and the case discussed with Gastroenterology and General Surgery. On examination the pt had no abdominal pain, including no RUQ pain or murphys sign. His labs have not shown Leukocytosis. He has not had fever. He does not have transaminitis. Given that his abd sx's are better after having BM and that his exam is reassuring, the pt was offered either inpatient surgical consultation vs outpatient surgical consultation. Ultimately, he and his have chosen outpatient followup which is being set up. Per GI, as his GB disease, is not considered to be acute cholecystitis, have been stopped. Return precautions have been provided. Miralax has been scheduled. He will also f/u with Oncology DDX #Abd pain with CT evidence concerning for Colitis and US evidence concerning for acute cholecystitis -Was initially treated with abx and these were stopped. He was started on Ertapenem on 04/18 and this was stopped on the day of discharge -HIDA shows GB pathology, this will be followed in an op setting # Query colitis -CT Abd c/w diffuse thickening of the colon and mild mesenteric stranding and trace adjacent free fluid - ischemic vs infectious? also consider d/t sorafenib Per Oncology no further w /u or studies are needed. This will self resolved. - initially treated with abx #GB disease # adynamic ileus/constipation -Has had several BM's at this point -felt to be the primary contributing factor -cont Miralax # Acute on chronic hypoK -improving -holding HCTZ -Mg ok # HCC stage IV - currently on sorafenib, follows with Dr Marrero - stable L4 and S1 mets # T8 pedicle mass, mod-severe spinal canal narrowing - no neuro sx # GERD - ppi #Dehydration, resolved #Hypothyroidism: -Levothyroxine was recently increased by his oncologist 3-4 weeks ago. He can f/ u for repeat testing Exam: FELICITA [id number] RRR CTA B S/NT/ND MEDS: SEE MED REC F/U: PER ABOVE TOTAL TIME SPENT ON D/C IS 50 MINS. D/W RADIOLOGY, SURGERY, GI, NURSING, PT, CM
--- NOTE | 2018-04-20 16:08 | ASMTDCNOTE ---
Case Management Discharge Discharge Order Complete? Answers: Yes Followup Appointment 04/20/2018 10:30 AM Patient to Obtain Answers: via Family Medications Transportation Arranged Answers: Family/Friends Family Notified Answers: Yes Discharge Comments Notes: Patient is medically stable for discharge to home with family. Appointment for f/u with Dr. Fernandez Made for Friday 04/27 at 10:30 am. No other needs at this time. Date Signed: 04/20/2018 04:07 PM Electronically Signed By:Angelita Lindsey RN
== END 2018-04-20 16:42 | disposition home or self-care (01) | DRG 392 ==
LOC: F1N 04-15 00:50 → OBSVTOIN 04-15 15:42
PROVIDERS: ADMIT Family Medicine; ATTEND Family Medicine
DX: K59.00 Constipation, unspecified (principal); E86.1 Hypovolemia; E87.6 Hypokalemia; K52.9 Noninfective gastroenteritis and colitis, unspecified; C22.0 Liver cell carcinoma; C79.51 Secondary malignant neoplasm of bone; K74.69 Other cirrhosis of liver; Z86.19 Personal history of other infectious and parasitic diseases; K82.8 Other specified diseases of gallbladder; E03.9 Hypothyroidism, unspecified; K21.9 Gastro-esophageal reflux disease without esophagitis; F32.9 Major depressive disorder, single episode, unspecified; F41.9 Anxiety disorder, unspecified; I10 Essential (primary) hypertension
CPT/HCPCS: 82435-PO; 82565-PO; 82947-PO; 84132-PO; 84295-PO; 84484-ER; 84520-PO; 85014-PO; 96365; A9537; J0744; J1170; J1335; J1650; J2270; J2550; J3480; Q9967

== ENCOUNTER 2018-04-24 08:59 | Observation (INO) | payer OTHER ==
--- NOTE | 2018-04-24 09:22 | EDPHY ---
H & P Stated Complaint: Constipated Time Seen by Provider: 04/24/18 09:22 - Personal History Current Tetanus/Diphtheria Vaccine: Yes - Medical/Surgical History Hx Asthma: No Hx Chronic Respiratory Disease: No Hx Diabetes: No Hx Cardiac Disease: No Hx Renal Disease: No Hx Cirrhosis: No Hx Alcoholism: No Hx HIV/AIDS: No Hx Splenectomy or Spleen Trauma: No Other PMH: HEP C, stage 4 liver CA - Social History Smoking Status: Never smoked Constitutional: Initial Vital Signs Temperature (C) 36.5 C 04/24/18 09:08 Heart Rate 88 04/24/18 09:08 Respiratory Rate 18 04/24/18 09:08 Blood Pressure 148/95 H 04/24/18 09:08 O2 Sat (%) 97 04/24/18 09:08 O2 Delivery Mode Room Air Allergies/Adverse Reactions: Penicillins Allergy (Unknown, Verified 04/24/18 09:15) Pt states sister is allergic so he has never taken it Home Medications: Medication Instructions Recorded Pantoprazole Sodium [Protonix] 40 mg PO BID 11/17/15 Potassium Chloride 10 meq PO DAILY 11/17/15 Escitalopram Oxalate [Lexapro] 30 mg PO DAILY 09/27/17 Sorafenib Tosylate [Nexavar] 400 mg PO BID 01/15/18 Codeine Sulf [Codeine 30 mg (*)] 30 mg PO Q3 04/15/18 Levothyroxine [Synthroid 112 mcg 112 mcg PO DAILY06 04/15/18 (*)] Polyethylene Glycol 3350 [Miralax 17 gm PO TID pkt 04/20/18 17 gm (*)] Medical Decision Making - Diagnostics Imaging: Discussed imaging studies w/ call center nurse Radiologist, I viewed and interpreted images myself ED Course/Re-evaluation: CHIEF COMPLAINT: Constipation HISTORY OF PRESENT ILLNESS: The patient is a 62 y/o male with a history of hepatitis C and stage 4 liver cancer (followed by Dr. Marrero) complaining of constipation for 1 week. Around 10 days ago he was admitted to this hospital for abdominal pain and diagnosed with worsening metastases. During that admission he had a HIDA scan which revealed a possible cholecystitis. After discussing with general surgery and gastroenterology it was decided that surgery was not needed and the patient was given antibiotics. He was also diagnosed with colitis and started on opioids. He was discharged home with plan for MiraLax and did not have a bowel movement prior to discharge. Since the discharge he has not had a normal bowel movement but did have several very small episodes of diarrhea. He tried an enema as well as oral medications without relief of symptoms. His abdomen has become distended due to the constipation. As his symptoms have not improved he decided to present to the emergency department. No fever, chest pain, shortness of breath, urinary complaints, numbness or paresthesias. REVIEW OF SYSTEMS: A comprehensive 10 system review of systems is otherwise negative aside from elements mentioned in the history of present illness and medical decision making. PHYSICAL EXAM: HR, BP, O2 Sat, RR. Temp noted General Appearance: Alert, well hydrated, appropriate, and non-toxic appearing. Head: Atraumatic without scalp tenderness or obvious injury Eyes: Pupils equal, round, reactive to light and accommodation, EOMI, no trauma , no injection. Ears: Clear bilaterally, no perforation, normal landmarks Nose: Atraumatic, no rhinorrhea, clear. Throat: There is no erythema or exudates, no lesions, normal tonsils, mucus membranes moist. Neck: Supple, 2+ carotid upstroke, nontender, no lymphadenopathy. Respiratory: No retractions, no distress, no wheezes, and no accessory muscle use. Lungs are clear to auscultation bilaterally. Cardiovascular: Regular rate and rhythm, no murmurs, rubs, or gallops. Bilateral carotid, radial, dorsalis pedis, and posterior tibial pulses intact. Good capillary refill all extremities. Gastrointestinal: Distended abdomen. Abdomen is soft, nontender, no masses, no rebound, no guarding, no peritoneal signs. Musculoskeletal: Normal active ROM of all extremities, atraumatic. Neurological: Alert, appropriate, and interactive. The patient has normal DTRs and non-focal cranial nerves, motor, sensory, and cerebellar exam. Skin: No rashes, good turgor, no nodules on palpation. 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 MEDICAL DECISION MAKING: The patient is a 62 y/o male with a history of hepatitis C and stage 4 liver cancer presenting with constipation for 1 week. Around 10 days ago he was admitted to this hospital for abdominal pain and diagnosed with worsening metastases, colitis, and non-acute cholecystitis. Since the discharge he has not had a bowel movement and worsening abdominal distension. Labs and abdominopelvic CT ordered; 1L IV NS administered. 1055: I spoke with Dr. Lincoln, radiologist, who reports that the patient has worsening colitis, constipation and omental edema. This patient will need to be admitted. 1100: I consulted with the hospitalist service, Dr. Prescott accepts admission of this patient. 1113: Reassessed patient and discussed imaging and laboratory findings. I have also discussed the plan for admission which he is comfortable with. I will consult with his oncologist, Dr. Marrero. 1122: I consulted with Dr. Marrero, oncologist, regarding this patient. He agrees to consult on this patient during his admission. - Data Points Laboratory Results: Laboratory Results 04/24/18 10:10 04/24/18 10:10 04/24/18 04/24/18 04/24/18 10:16 10:10 10:10 WBC 5.85 10^3/uL 10^3/uL (3.80-9.50) RBC 4.36 10^6/uL L 10^6/uL (4.40-6.38) Hgb 13.5 g/dL L g/dL (13.7-17.5) POC Hgb 13.6 gm/dL L gm/dL (13.7-17.5) Hct 37.8 % L % (40.0-51.0) POC Hct 40 % % (40-51) MCV 86.7 fL fL (81.5-99.8) MCH 31.0 pg pg (27.9-34.1) MCHC 35.7 g/dL g/dL (32.4-36.7) RDW 16.1 % H % (11.5-15.2) Plt Count 255 10^3/uL 10^3/uL (150-400) MPV 10.1 fL fL (8.7-11.7) Neut % (Auto) 70.7 % % (39.3-74.2) Lymph % (Auto) 7.2 % L % (15.0-45.0) Delta % (Auto) 14.9 % H % (4.5-13.0) Eos % (Auto) 6.0 % % (0.6-7.6) Baso % (Auto) 0.7 % % (0.3-1.7) Nucleat RBC Rel Count 0.0 % % (0.0-0.2) Absolute Neuts (auto) 4.14 10^3/uL 10^3/uL (1.70-6.50) Absolute Lymphs (auto) 0.42 10^3/uL L 10^3/uL (1.00-3.00) Absolute Monos (auto) 0.87 10^3/uL H 10^3/uL (0.30-0.80) Absolute Eos (auto) 0.35 10^3/uL 10^3/uL (0.03-0.40) Absolute Basos (auto) 0.04 10^3/uL 10^3/uL (0.02-0.10) Absolute Nucleated RBC 0.00 10^3/uL 10^3/uL (0-0.01) Immature Gran % 0.5 % % (0.0-1.1) Seg Neutrophils % 83.5 % % Band Neutrophils % 0.0 % % Lymphocytes % 1.9 % % Monocytes % 4.9 % % Eosinophils % 9.7 % % Basophils % 0.0 % % Metamyelocytes % 0.0 % % Myelocytes % 0.0 % % Promyelocytes % 0.0 % % Blast Cells % 0.0 % % Immature Gran # 0.03 10^3/uL 10^3/uL (0.00-0.10) Absolute Seg Neuts 4.88 10^3/uL 10^3/uL (1.70-6.50) Absolute Band Neuts 0.00 10^3/uL 10^3/uL (0.00-0.70) Absolute Lymphocytes 0.11 10^3/uL L 10^3/uL (1.00-3.00) Absolute Monocytes 0.29 10^3/uL L 10^3/uL (0.30-0.80) Absolute Eosinophils 0.57 10^3/uL H 10^3/uL (0.03-0.40) Absolute Basophils 0.00 10^3/uL L 10^3/uL (0.02-0.10) Absolute Metamyelocyte 0.00 10^3/mL 10^3/mL (0.00-0.00) Absolute Myelocytes 0.00 10^3/mL 10^3/mL (0.00-0.00) Absolute Promyelocytes 0.00 10^3/uL 10^3/uL (0.00-0.00) Absolute Plasma Cells 0.00 10^3/uL 10^3/uL (0.00-0.00) Nucleated RBCs 0 /100 WBC /100 WBC (0-0) Absolute Blast Cells 0.00 10^3/uL 10^3/uL (0.00-0.00) Plasma Cells % 0.0 % % Platelet Estimate ADEQUATE (ADEQ) POC Sodium 142 mEq/L mEq/L (135-145) Sodium 136 mEq/L mEq/L (135-145) POC Potassium 3.1 mEq/L L mEq/L (3.3-5.0) Potassium 3.3 mEq/L L mEq/L (3.5-5.2) POC Chloride 103 mEq/L mEq/L (97-110) Chloride 107 mEq/L mEq/L (97-110) Carbon Dioxide 22 mEq/l mEq/l (22-31) Anion Gap 7 mEq/L mEq/L (6-14) POC BUN < 3 mg/dL L mg/dL (7-23) BUN 4 mg/dL L mg/dL (7-23) Creatinine 0.6 mg/dL L mg/dL (0.7-1.3) POC Creatinine 0.5 mg/dL L mg/dL (0.7-1.3) Estimated GFR > 60 Glucose 111 mg/dL H mg/dL (70-100) POC Glucose 114 mg/dL H mg/dL (70-100) Calcium 9.0 mg/dL mg/dL (8.5-10.4) Total Bilirubin 1.8 mg/dL H mg/dL (0.1-1.4) Conjugated Bilirubin 0.6 mg/dL H mg/dL (0.0-0.5) Unconjugated Bilirubin 1.2 mg/dL H mg/dL (0.0-1.1) AST 69 IU/L H IU/L (17-59) ALT 41 IU/L IU/L (21-72) Alkaline Phosphatase 136 IU/L H IU/L (38-126) Total Protein 7.2 g/dL g/dL (6.3-8.2) Albumin 3.4 g/dL L g/dL (3.5-5.0) Lipase 208 IU/L IU/L (23-300) Medications Given: Discontinued Medications Sodium Chloride (Ns) 1,000 mls @ 0 mls/hr IV EDNOW ONE; Wide Open PRN Reason: Protocol Stop: 04/24/18 09:54 Last Admin: 04/24/18 10:18 Dose: 1,000 mls Point of Care Test Results: Chemistry 04/24/18 10:16 POC Sodium 142 mEq/L mEq/L (135-145) POC Potassium 3.1 mEq/L L mEq/L (3.3-5.0) POC Chloride 103 mEq/L mEq/L (97-110) POC BUN < 3 mg/dL L mg/dL (7-23) POC Creatinine 0.5 mg/dL L mg/dL (0.7-1.3) POC Glucose 114 mg/dL H mg/dL (70-100) ISTAT H&H 04/24/18 10:16 POC Hgb 13.6 gm/dL L gm/dL (13.7-17.5) POC Hct 40 % % (40-51) Departure - Departure Disposition: [facility] Acute Clinical Impression: Colitis, omental edema Constipation Qualifiers: Constipation type: unspecified constipation type Qualified Code(s): K59.00 - Constipation, unspecified Ascites Qualifiers: Ascites type: malignant Qualified Code(s): R18.0 - Malignant ascites Condition: Fair Referrals: Herlinda Gonzalez MD [Primary Care Provider] - As per Instructions Report Scribed for: Rey Gasac Report Scribed by: Bernice Martino Date of Report: 04/24/18 Time of Report: 09:29
[2018-04-24] MEDS ORDERED: NS 1,000 ML IV ONE (09:53)
[2018-04-24] MEDS ORDERED: IOPAMIDOL (ISOVUE-300) 100 ML BTL ONE (10:14)
[2018-04-24 10:18] LABS: PLATELET COUNT 255 10^3/uL (150-400)
--- NOTE | 2018-04-24 12:47 | GCON ---
INPATIENT ONCOLOGY CONSULTATION DATE OF CONSULTATION: 04/24/2018 REFERRING PHYSICIAN: Dee Anderson DO REASON FOR CONSULTATION: History of hepatocellular carcinoma. HISTORY OF PRESENT ILLNESS: The patient is a 62-year-old man with a history of metastatic hepatocell ular carcinoma. He has a history of hepatitis C. He was diagnosed in the summer with multifocal hep atocellular carcinoma in the liver, as well as several bone metastases. He was started on sorafenib which he tolerated well. He then underwent radioembolization of the liver in December. Since then, his AFP has been falling. He developed some possible growth of one of the lesions at T8 and began r adiotherapy to be given over 10 fractions starting last week. His hypothyroidism has also gotten wor se over the past few months, and his dose of Synthroid was increased from 88 mcg to 112 mcg about a m onth ago. Last week, he was admitted with severe abdominal pain. A CT showed diffuse colitis and the patient w as complaining of lack of bowel movements and did not endorse any diarrhea or hematochezia. His AFP continued to fall. His sorafenib had already been held due to his concurrent radiotherapy. He had a HIDA scan which was unremarkable. He was seen by GI, but no endoscopic procedures were performed. The patient had a bowel movement and felt better and was discharged. Now, however, he reports recurr ence of his symptoms but not as severe as before. He has really not had any bowel movements in the p ast few days. His abdomen is markedly distended and somewhat tender. PAST MEDICAL HISTORY: 1. Hepatocellular carcinoma as noted above. 2. Hepatitis C. 3. Hypothyroidism. CURRENT MEDICATIONS: Include Synthroid 112 mcg. ALLERGIES: Penicillin. FAMILY HISTORY: Noncontributory. 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 He does not smoke cigarettes or drink alcohol. REVIEW OF SYSTEMS: Aside from pertinent positives in the HPI, a 14-point review of systems was negat dipika. EXAMINATION: VITAL SIGNS: Temperature is 36.5, blood pressure 140/95, heart rate 88, oxygen saturat ion 97% on room air. GENERAL: He appeared comfortable in no acute distress. HEENT: Sclerae anicter ic. Oropharynx was clear. NECK: Supple without lymphadenopathy. LUNGS: Clear to auscultation rodney aterally. CARDIAC: Regular rate and rhythm. No murmurs, gallops, rubs. ABDOMEN: He had absent collin wel sounds. His abdomen was markedly distended and diffusely tender, though in a nonfocal fashion. EXTREMITIES: Without edema. NEUROLOGICAL: He is alert and oriented x3. LABORATORY DATA: White count 5.85, hemoglobin 13.5, platelets of 255. Sodium 142, potassium 3.1, ch loride 103, bicarb of 22, BUN 4, creatinine 0.6, total bilirubin 1.8, indirect 1.2, AST 69, ALT 41, a lkaline phosphatase 136. TSH on April 19 was 14.7. IMPRESSION: This is a 62-year-old man with a history of hepatocellular carcinoma, mostly confined to the liver with a few bone metastases. He now is admitted again for what appears on CT to be colitis , though clinically appears to be more of an ileus. It is not clear what the underlying cause is. T he sorafenib could in theory cause colitis, but he has been off it for at least a week and the proble m appears to not be getting any better. An ileus could be seen with hypothyroidism but would not be likely to cause a diffuse thickening of the bowel seen on the CT scan. It is very likely to represen t direct involvement of the cancer. RECOMMENDATIONS: 1. I placed a call to GI for consideration of colonoscopy, as I think that will be necessary to defi nitively determine what is going on. 2. I would recommend increasing his Synthroid to 137 or 150 mcg per day in case that is part of the cause. 3. Would continue to hold the sorafenib for now. 4. The patient should be able to resume radiation therapy to stay on schedule tomorrow as long as he does not have any procedures such as a colonoscopy that would preclude that. Thank you for this consultation. We will continue to follow patient with you closely while he is in the hospital. /[id number]/MODL
[2018-04-24] MEDS ORDERED: ACETAMINOPHEN 325 MG TAB PO PRN (12:58)
[2018-04-24] MEDS ORDERED: ONDANSETRON 4 MG/2 ML VIAL IVP PRN (12:58)
[2018-04-24] MEDS ORDERED: ONDANSETRON DISINTEGRATING 4 MG TAB PO PRN (12:58)
[2018-04-24] MEDS ORDERED: NS W/ 20 KCl/L 1,000 ML IV SCH (13:00)
[2018-04-24] MEDS ORDERED: LACTULOSE 20 GM/30 ML UDCUP PO PRN (13:02)
[2018-04-24] MEDS ORDERED: POLYETHYLENE GLYCOL 3350 17 GM PKT PO PRN (13:02)
[2018-04-24] MEDS ORDERED: MAGNESIUM HYDROXIDE 30 ML UDCUP PO PRN (13:02)
[2018-04-24] MEDS ORDERED: BISACODYL 10 MG SUPP PR PRN (13:02)
[2018-04-24] MEDS ORDERED: NS W/ 20 KCl/L 1,000 ML IV ONE (13:05)
--- NOTE | 2018-04-24 13:09 | PDGENHP ---
History and Physical - Chief Complaint Constipation - History of Present Illness This is a 62 y/o male with history of hepatitis C and metastatic hepatocellular carcinoma presents with c/o constipation, onset approximately 10 days ago. He has several bouts of loose stool (roughly 5x per day), no hematochezia or melena and has abdominal tenderness and distention. He was previously admitted 2 weeks ago with c/o abdominal pain and worsening mets. HIDA scan revealed possible cholecystitis, GI was consulted and no intervention took place. He received antibiotics and imaging also showed colitis to which he received opioids which he reports he hasn't taken. He stopped sorafenib a week ago. He continues radiation every day but has not received therapy today. Radiation is to end on April 30. Today's abdominal CT scan shows worsening colitis, constipation and omental edema. He being admitted for observation. Past Medical/Surgical History 1. Hepatitis C 2. Stage IV Liver CA (followed by Dr. Roney Verma) 3. Cirrhosis 4. Kidney stones 5. Depression 6. Anxiety 7. Hypertension 8. GERD 9. Hypothyroidism Social 1. 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 3. Denies tobacco use or illicit drug use. Denies alcohol. Vital Signs 152/86 72 HR 16 Resp 36.6c 95% RA History Information - Allergies/Home Medication List Allergies/Adverse Reactions: Penicillins Allergy (Unknown, Verified 04/24/18 09:15) Pt states sister is allergic so he has never taken it Home Medications: Pantoprazole Sodium [Protonix] 40 mg PO BID 11/17/15 [Last Taken 04/23/18] Potassium Chloride 10 meq PO DAILY 11/17/15 [Last Taken 04/23/18] Escitalopram Oxalate [Lexapro] 30 mg PO DAILY 09/27/17 [Last Taken 04/23/18] Levothyroxine [Synthroid 112 mcg (*)] 112 mcg PO DAILY06 04/15/18 [Last Taken ] I have personally reviewed and updated: family history, medical history, social history, surgical history Past Medical History: See HPI list - Surgical History Additional surgical history: See HPI list - Family History Additional family history: No liver issues - Social History Smoking Status: Never smoked Alcohol Use: None Drug Use: None Review of Systems Review of Systems: ROS: 10pt was reviewed & negative except for what was stated in HPI & below Constitutional: Reports: malaise EENMT: Reports: no symptoms Cardiac: Reports: no symptoms Respiratory: Reports: no symptoms Gastrointestinal: Reports: abdominal distention, constipation, nausea (Mild) Genitourinary: Reports: no symptoms Muscolosketal: Reports: no symptoms Skin: Reports: no symptoms Neurological: Reports: depressed (Denies hurting himself or others) Hematologic/Lymphatic: Reports: no symptoms Immunologic/Allergy: Reports: other (See allergy list) Physical Exam Physical Exam: Lab data and imaging reviewed Temp Pulse Resp BP Pulse Ox 36.6 C 72 16 152/86 H 95 04/24/18 12:44 04/24/18 12:44 04/24/18 12:44 04/24/18 12:44 04/24/18 12:44 Constitutional: no apparent distress, appears nourished, not in pain Eyes: PERRL, anicteric sclera, EOMI Ears, Nose, Mouth, Throat: moist mucous membranes, hearing normal, ears appear normal, no oral mucosal ulcers Cardiovascular: regular rate and rhythym, no murmur, rub, or gallop, No edema Peripheral Pulses: 1+: dorsalis-pedis (R) (Radial 2+), dorsalis-pedis (L) ( Radial 2+) Respiratory: no respiratory distress, no rales or rhonchi, clear to auscultation Gastrointestinal: normoactive bowel sounds, tenderness, distension, other ( Reports minimal flatuance) Genitourinary: no bladder fullness, no bladder tenderness Skin: warm, normal color, no rashes or abrasions, no fluctuance, no induration, No mottled Musculoskeletal: full muscle strength, no muscle tenderness, normal joint ROM, no joint effusions Neurologic: AAOx3, sensation intact bilaterally, CN II-XII Intact Psychiatric: interacting appropriately, not anxious, not encephalopathic, thought process linear Lymph, Heme, Immunologic: no cervical LAD, no supraclavicular LAD Lab Data & Imaging Review 04/24/18 10:10 04/24/18 10:10 WBC 5.85 10^3/uL (3.80-9.50) 04/24/18 10:10 RBC 4.36 10^6/uL (4.40-6.38) L 04/24/18 10:10 Hgb 13.5 g/dL (13.7-17.5) L 04/24/18 10:10 POC Hgb 13.6 gm/dL (13.7-17.5) L 04/24/18 10:16 Hct 37.8 % (40.0-51.0) L 04/24/18 10:10 POC Hct 40 % (40-51) 04/24/18 10:16 MCV 86.7 fL (81.5-99.8) 04/24/18 10:10 MCH 31.0 pg (27.9-34.1) 04/24/18 10:10 MCHC 35.7 g/dL (32.4-36.7) 04/24/18 10:10 RDW 16.1 % (11.5-15.2) H 04/24/18 10:10 Plt Count 255 10^3/uL (150-400) 04/24/18 10:10 MPV 10.1 fL (8.7-11.7) 04/24/18 10:10 Neut % (Auto) 70.7 % (39.3-74.2) 04/24/18 10:10 Lymph % (Auto) 7.2 % (15.0-45.0) L 04/24/18 10:10 [place] % (Auto) 14.9 % (4.5-13.0) H 04/24/18 10:10 Eos % (Auto) 6.0 % (0.6-7.6) 04/24/18 10:10 Baso % (Auto) 0.7 % (0.3-1.7) 04/24/18 10:10 Nucleat RBC Rel Count 0.0 % (0.0-0.2) 04/24/18 10:10 Absolute Neuts (auto) 4.14 10^3/uL (1.70-6.50) 04/24/18 10:10 Absolute Lymphs (auto) 0.42 10^3/uL (1.00-3.00) L 04/24/18 10:10 Absolute Monos (auto) 0.87 10^3/uL (0.30-0.80) H 04/24/18 10:10 Absolute Eos (auto) 0.35 10^3/uL (0.03-0.40) 04/24/18 10:10 Absolute Basos (auto) 0.04 10^3/uL (0.02-0.10) 04/24/18 10:10 Absolute Nucleated RBC 0.00 10^3/uL (0-0.01) 04/24/18 10:10 Immature Gran % 0.5 % (0.0-1.1) 04/24/18 10:10 Seg Neutrophils % 83.5 % 04/24/18 10:10 Band Neutrophils % 0.0 % 04/24/18 10:10 Lymphocytes % 1.9 % 04/24/18 10:10 Monocytes % 4.9 % 04/24/18 10:10 Eosinophils % 9.7 % 04/24/18 10:10 Basophils % 0.0 % 04/24/18 10:10 Metamyelocytes % 0.0 % 04/24/18 10:10 Myelocytes % 0.0 % 04/24/18 10:10 Promyelocytes % 0.0 % 04/24/18 10:10 Blast Cells % 0.0 % 04/24/18 10:10 Immature Gran # 0.03 10^3/uL (0.00-0.10) 04/24/18 10:10 Absolute Seg Neuts 4.88 10^3/uL (1.70-6.50) 04/24/18 10:10 Absolute Band Neuts 0.00 10^3/uL (0.00-0.70) 04/24/18 10:10 Absolute Lymphocytes 0.11 10^3/uL (1.00-3.00) L 04/24/18 10:10 Absolute Monocytes 0.29 10^3/uL (0.30-0.80) L 04/24/18 10:10 Absolute Eosinophils 0.57 10^3/uL (0.03-0.40) H 04/24/18 10:10 Absolute Basophils 0.00 10^3/uL (0.02-0.10) L 04/24/18 10:10 Absolute Metamyelocyte 0.00 10^3/mL (0.00-0.00) 04/24/18 10:10 Absolute Myelocytes 0.00 10^3/mL (0.00-0.00) 04/24/18 10:10 Absolute Promyelocytes 0.00 10^3/uL (0.00-0.00) 04/24/18 10:10 Absolute Plasma Cells 0.00 10^3/uL (0.00-0.00) 04/24/18 10:10 Nucleated RBCs 0 /100 WBC (0-0) 04/24/18 10:10 Absolute Blast Cells 0.00 10^3/uL (0.00-0.00) 04/24/18 10:10 Plasma Cells % 0.0 % 04/24/18 10:10 Platelet Estimate ADEQUATE (ADEQ) 04/24/18 10:10 POC Sodium 142 mEq/L (135-145) 04/24/18 10:16 Sodium 136 mEq/L (135-145) 04/24/18 10:10 POC Potassium 3.1 mEq/L (3.3-5.0) L 04/24/18 10:16 Potassium 3.3 mEq/L (3.5-5.2) L 04/24/18 10:10 POC Chloride 103 mEq/L (97-110) 04/24/18 10:16 Chloride 107 mEq/L (97-110) 04/24/18 10:10 Carbon Dioxide 22 mEq/l (22-31) 04/24/18 10:10 Anion Gap 7 mEq/L (6-14) 04/24/18 10:10 POC BUN < 3 mg/dL (7-23) L 04/24/18 10:16 BUN 4 mg/dL (7-23) L 04/24/18 10:10 Creatinine 0.6 mg/dL (0.7-1.3) L 04/24/18 10:10 POC Creatinine 0.5 mg/dL (0.7-1.3) L 04/24/18 10:16 Estimated GFR > 60 04/24/18 10:10 Glucose 111 mg/dL (70-100) H 04/24/18 10:10 POC Glucose 114 mg/dL (70-100) H 04/24/18 10:16 Calcium 9.0 mg/dL (8.5-10.4) 04/24/18 10:10 Total Bilirubin 1.8 mg/dL (0.1-1.4) H 04/24/18 10:10 Conjugated Bilirubin 0.6 mg/dL (0.0-0.5) H 04/24/18 10:10 Unconjugated Bilirubin 1.2 mg/dL (0.0-1.1) H 04/24/18 10:10 AST 69 IU/L (17-59) H 04/24/18 10:10 ALT 41 IU/L (21-72) 04/24/18 10:10 Alkaline Phosphatase 136 IU/L (38-126) H 04/24/18 10:10 Total Protein 7.2 g/dL (6.3-8.2) 04/24/18 10:10 Albumin 3.4 g/dL (3.5-5.0) L 04/24/18 10:10 Lipase 208 IU/L (23-300) 04/24/18 10:10 Assessment & Plan Plan: 62 y/o male presenting with c/o constipation and enduring daily bouts of loose stool. He doesn't have much of an appetite and admits to feeling mildly nauseous. He does abdominal distention and tenderness however active bowel sounds in all quadrants and soft abdomen. -Hypokalemic: He will receive 1L NS 20 meQ KCL and recheck potassium tomorrow. Checking magnesium level now. He will be on cont tele monitoring. -Constipation: He reports utilizing Miralax, suppositories and one enema with no success of a full bowel movement. We will implement bowel regimen. The pt may be granted bathroom privileges and up in room ad heather. -Metastatic hepatocellular carcinoma: His oncologist, Dr. Roney Verma, has been consulted and has evaluated the pt during this stay. He recommends possible colonoscopy and contacted GI for this. -Depression: continue his Lexapro. He requested a sleeping agent. He may receive melatonin. -GERD: continue his pantoprazole Diet: Regular VTE ppx: SCDs Code: Full Dispo: Admit to obs
[2018-04-24] MEDS ORDERED: LEVOTHYROXINE 112 MCG TAB PO SCH (14:30)
--- NOTE | 2018-04-24 14:33 | ASMTCMCOM ---
CM Note CM Note Notes: Patient just discharged on 04/20 with planned surgical follow up for gallbladder disease. He comes to the ED with increasing abdominal pain of the same nature. He suffers from stage IV liver cancer. CM to follow for needs. Plan: DC likely to home when medically cleared for discharge, Date Signed: 04/24/2018 02:32 PM Electronically Signed By:Angelita Lindsey RN
[2018-04-24] MEDS: LORazepam 2 MG/ML INJ IVP PRN ×2 (15:29→20:43)
[2018-04-24] MEDS: ESCITALOPRAM OXALATE 10 MG TAB PO SCH (15:34)
[2018-04-24] MEDS: PANTOPRAZOLE SODIUM 40 MG TAB PO SCH ×2 (15:35→20:40)
[2018-04-24] MEDS: SENNOSIDES/DOCUSATE SODIUM TAB PO SCH ×2 (15:37→20:40)
[2018-04-24] MEDS ORDERED: hydrALAZINE 20 MG/ML VIAL IVP PRN (18:10)
[2018-04-24] MEDS: MELATONIN 3 MG TAB PO SCH (20:39)
[2018-04-24] MEDS ORDERED: PEG 3350/NA SULF,BICARB,CL/KCL (GAVILYTE-G) 4000 ML BTL PO ONE (21:19)
--- NOTE | 2018-04-24 21:26 | SOAPPROG ---
SOAP Progress Note Assessment/Plan: Assessment/Plan: Chart reviewed, pt. not seen yet, formal note to follow. Abdominal discomfort, with possible constipation, incomplete evacuation. Etiology includes: a) colon inflammation, as increased thickening and distribution seen on repeat CT scan. No evidence of dilation, however. If so, etiologies could include a delayed resolution of srafenib, vs. other. b) atypical GB disease, with a positive HIDA scan on last admission (see addendum to prior HIDA report) c) thyroid disorder, with TSH increasing from 14 to 23, but with a normal free T4, and only moderate low free T3 - will evaluate further with pt., but suspect colonoscopy will help. Will prep , in case we proceed - increase synthroid to 137 Thanks! 04/24/18 21:27 Objective: Vital Signs Temp Pulse Resp BP Pulse Ox 36.8 C 93 16 131/87 H 92 04/24/18 20:25 04/24/18 20:25 04/24/18 20:25 04/24/18 20:25 04/24/18 20:25 04/23/18 04/24/18 04/25/18 05:59 05:59 05:59 Intake Total 1000 Balance 1000 ICD10 Worksheet Patient Problems: Problems Problem Status Onset Ascites Acute Colitis Acute Constipation Acute Abdominal pain Acute HCC (hepatocellular carcinoma) Acute Hypokalemia Acute
[2018-04-24] MEDS ORDERED: POTASSIUM CL 20 MEQ TAB PO ONE (21:30)
[2018-04-25] MEDS: LEVOTHYROXINE 137 MCG TAB PO SCH (05:45)
[2018-04-25] MEDS: SENNOSIDES/DOCUSATE SODIUM TAB PO SCH (09:49)
[2018-04-25] MEDS: PANTOPRAZOLE SODIUM 40 MG TAB PO SCH ×2 (09:49→21:26)
[2018-04-25] MEDS: ESCITALOPRAM OXALATE 10 MG TAB PO SCH (09:49)
--- NOTE | 2018-04-25 14:22 | SOAPPROG ---
SOAP Progress Note Assessment/Plan: Assessment: - Stage IV hepatocellular carcinoma (bone mets) - currently getting palliative XRT. Has 3 more doses to go. - Colitis seen on CT - Dr. Howard's consult appreciated. Patient getting prep for colonoscopy now. Exact timing of colonoscopy pending. - Hx of Hepatitis C Plan: - continue palliative XRT - continue to hold sorafenib - Colonoscopy per Dr. Howard 04/25/18 14:18 Subjective: Very fatigued. Some abdominal cramping possibly from prep for colonoscopy. Objective: Vital Signs Temp Pulse Resp BP Pulse Ox 36.9 C 91 20 150/106 H 93 04/25/18 11:34 04/25/18 11:34 04/25/18 11:34 04/25/18 11:34 04/25/18 11:34 Laboratory Results 04/25/18 05:00 04/23/18 04/24/18 04/25/18 23:59 23:59 23:59 Intake Total 1000 1000 Balance 1000 1000 Physical Exam - Physical Exam General Appearance: no apparent distress Respiratory: lungs clear Cardiac/Chest: regular rate, rhythm Abdomen: distended Skin: warm/dry, pallor Extremities: pedal edema Neuro/Psych: other (somnolent but wakes up to voice.) ICD10 Worksheet Patient Problems: Problems Problem Status Onset Ascites Acute Colitis Acute Constipation Acute Abdominal pain Acute HCC (hepatocellular carcinoma) Acute Hypokalemia Acute
[2018-04-25] MEDS ORDERED: NS 500 ML IV ONE (15:09)
[2018-04-25] MEDS ORDERED: MAGNESIUM CITRATE 300 ML BOTTLE PO ONE (15:25)
[2018-04-25] MEDS ORDERED: POTASSIUM CL 20 MEQ TAB PO ONE (15:26)
[2018-04-25] MEDS: LORazepam 2 MG/ML INJ IVP PRN ×2 (15:41→23:08)
--- NOTE | 2018-04-25 16:26 | GCON ---
GI INPATIENT CONSULTATION DATE OF CONSULTATION: 04/25/2018 I was kindly requested to see the patient by Dr. Jose Marrero in consultation for a chief complaint of constipation. He is a 62-year-old white male who developed the above approximately 8 days ago. He has had what he describes as "extreme" constipation, where he will have a bowel movement every day, but very small in amount, liquidy, with otherwise a sense of incomplete evacuation. With this, he has been having trouble passing gas. He has had some secondary abdominal distention, as well as some secondary abdominal gas discomfort. He has some mild nausea. He denies vomiting. For the most part, the gassy abdominal discomfort is minimal, and not his main symptom. It is mostly around the periumbilical area. He has known metastatic hepatocellular carcinoma, including bone mets. Besides radiation therapy, he was on sorafenib, which was stopped approximately a week ago. Last week, he was in the hospital with similar symptoms. Initially, it was more severe abdominal pain. CT scan then showed a "diffuse colitis." He was consulted on by Dr. Wilcox. He was placed on MiraLAX 3 times a day, which helped give him a good bowel movement, he felt better, and was discharged. However, as above, symptoms quickly returned as an outpatient. He has been using the MiraLAX 3 times a day as an outpatient, without much benefit. CT scan now of the abdomen and pelvis with IV contrast shows increased thickening of the colon from the hepatic flexure to the rectum. PAST MEDICAL HISTORY: 1. As above. 2. Hepatitis C, which I believe was cured. 3. Hypothyroidism. 4. Otherwise, noncontributory. OUTPATIENT MEDICATIONS: Synthroid. INPATIENT MEDICATIONS: Include Lexapro, Synthroid 112 mcg daily, Protonix 40 mg twice a day. ALLERGIES: Penicillin. 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 He does not drink alcohol. He is . His 's name is Tiana. FAMILY HISTORY: Negative for similar constipation. REVIEW OF SYSTEMS: Positive pertinent review of systems as per my HPI. Otherwise, complete review of systems is negative. PHYSICAL EXAM: CONSTITUTIONAL: Nontoxic-appearing, pleasant gentleman. SKIN: Warm, dry. EYES: Pupils equal, round, reactive to light and accommodation. EARS, NOSE, MOUTH: Throat, oropharynx without masses, moist mucosa. CARDIOVASCULAR: Normal S2, normal PMI. RESPIRATORY: Lungs clear to auscultation and percussion anteriorly. GASTROINTESTINAL: Abdomen mildly distended mildly uncomfortable and tender in the periumbilical area. NEUROLOGIC : Grossly nonfocal, cranial nerves grossly intact. PSYCHIATRIC: Orientation, insight appropriate. MUSCULOSKELETAL: Strength grossly normal throughout, normal station. LABORATORIES: Include the above. TSH recently was 14, but now 23. However, he has a normal free T4, and a T3 that is only moderately low at 1.58. CT scan otherwise shows a lytic mass at T8. His liver mass is stable. Moderate ascites , increased since his last CT. Mildly distended and thickened gallbladder. On his last admission, he did have a HIDA scan that was positive. Normal basic metabolic panel, except for a potassium of 3.4. CBC stable, hematocrit 37.8%. Normal lipase. Alkaline phosphatase 136, with a total bilirubin 1.8. AST 69, with an ALT of 41. ASSESSMENT: 1. Continued constipation, with a sense of incomplete evacuation, and some secondary symptoms of distention, periumbilical gas discomfort, etc. Somewhat acute process. The etiology of this is still unclear. Repeat CT scan does show increased thickening of the colon, which might suggest inflammation. However, usually colitis will cause diarrhea. However, if it is especially worse in the rectum, it could lead to tenesmus. In terms of etiology, would suspect most likely still some residual side-effect from sorafenib. Other colonic sources, such as an intrinsic or extrinsic malignant obstruction, not appreciated on CT scan, is possible. He does have a markedly-elevated TSH, but with his free T3 only being mildly to moderately decreased, I am not sure how much this is playing a role. Colonic pseudo-obstruction from his significant illnesses and treatment is also possible. 2. Positive HIDA scan on his last admission. However, this may be a false- positive only, and nonspecific or significant. He is no longer complaining of much in the way of right upper quadrant pain. Would doubt that biliary disease would give him such constipation and incomplete evacuation. PLAN: 1. We will prep the patient, and then proceed with colonoscopy tomorrow. 2. We will replete his potassium. 3. Would hold his radiation therapy tomorrow until after his colonoscopy. 4. I have increased his Synthroid to 137 mcg daily. 5. Further management depending on the above. Thank you for allowing me to help in the care of this patient. /[id number]/MODL MTDD
--- NOTE | 2018-04-25 18:14 | HOSPPROG ---
Hospitalist Progress Note Assessment/Plan: The patient is a 62-year-old male with PMH stage IV HCC who was admitted for severe constipation and colitis. ASSESSMENT/PLAN: Severe colitis/omental edema Severe constipation Stage IV HCC with mets to bone Abdominal pain, secondary to above Depression Bereavement Anemia Hypokalemia Possible cholecystitis -GI recs appreciated - doing colonoscopy tomorrow as bowel prep was inadequate today. -Potassium replaced -bowel protocol. -Ativan prn anxiety. -Continue home meds. -Radiation daily. -Check AM labs. VTE prophylaxis: start Lovenox after colonoscopy. Code Status: Full code Status: Inpatient for greater than 2 midnight stay. Disposition: Med surg ____ SUBJECTIVE: Patient continues to have abdominal discomfort and distention. He is sad because his 99-year-old father last night unexpectedly. OBJECTIVE: Physical Exam: General: The patient is a male who is alert and in no acute distress. HEENT: normocephalic, extraocular movements intact, conjunctivae clear. Mucous membranes moist. Neck: trachea midline, no visible masses. Resp: unlabored. Abd: soft and moderately distended. tender diffusely, worse in RUQ. Musculoskeletal: Normal muscle tone/bulk. Neuro: cranial nerves II - XII grossly intact. Intact gross motor and sensory function. Psych: Depressed mood and appropriate affect. Skin: Mild pallor. No petechiae. Heme/lymph: No peripheral edema at bilateral lower extremities. Labs/Imaging/Other Tests: Personally reviewed/interpreted. Objective: Vital Signs Temp Pulse Resp BP Pulse Ox 36.8 C 85 21 H 128/83 H 93 04/25/18 15:29 04/25/18 15:29 04/25/18 15:29 04/25/18 15:29 04/25/18 15:29 Laboratory Results 04/25/18 05:00 04/24/18 04/25/18 04/26/18 05:59 05:59 05:59 Intake Total 1999 Balance 1999 - Time Spent With Patient Time Spent with Patient: greater than 35 minutes Time Spent with Patient: Greater than 35 minutes spent on this patients care, greater than 50% of time spent counseling, educating, and coordinating care regarding the above mentioned plan. ICD10 Worksheet Patient Problems: Problems Problem Status Onset Ascites Acute Colitis Acute Constipation Acute Abdominal pain Acute HCC (hepatocellular carcinoma) Acute Hypokalemia Acute
[2018-04-25] MEDS: MELATONIN 3 MG TAB PO SCH (23:08)
[2018-04-26 04:41] LABS: PLATELET COUNT 213 10^3/uL (150-400)
[2018-04-26] MEDS: LEVOTHYROXINE 137 MCG TAB PO SCH (06:24)
[2018-04-26] MEDS ORDERED: D5W 1/2 NS W/ 20 KCl/L 1,000 ML IV SCH (07:00)
[2018-04-26] MEDS: ESCITALOPRAM OXALATE 10 MG TAB PO SCH (07:58)
[2018-04-26] MEDS ORDERED: MIDAZOLAM 2 MG/2 ML VIAL ONE (09:19)
[2018-04-26] MEDS ORDERED: fentaNYL 100 MCG/2 ML INJ ONE (09:20)
[2018-04-26] MEDS ORDERED: FUROSEMIDE 20 MG/2 ML VIAL IVP ONE ×2 (11:18→16:00)
[2018-04-26] MEDS ORDERED: POTASSIUM CL 20 MEQ TAB PO ONE ×2 (11:19→16:00)
--- NOTE | 2018-04-26 11:27 | GIREPORT ---
[facility] Surgical Services - Endoscopy Department Patient Name: Tyrese Hemphill Procedure Date: 04/26/2018 9:16 AM Patient Type: Inpatient Attending MD/ ER Physician: Jackson Howard MD Procedure: Colonoscopy Indications: Sense of incomplete evacuation. With additional prep, feels somewhat be tter today. Of note, only 1 - 2 liters of ascitic fluid on CT. Providers: Jackson Howard MD, FACG Referring MD: [facility] Hospitalist service; Jose Marrero MD; Herlinda Gonzalez MD Medicines: Fentanyl 150 micrograms IV, Midazolam 6 mg IV Complications: No immediate complications. Description of Procedure: After obtaining informed consent, the scope was passed under direct vis ion. Throughout the procedure, the patient's blood pressure, pulse, and oxyg en saturations were monitored continuously. The was introduced through the anus and advanced to the cecum, identified by appendiceal orifice and ileoce jaqueline valve. Findings: The entire examined colon appeared normal, except for some edema (not significant). Estimated Blood Loss: Estimated blood loss: none. Post Op Diagnosis: - Unremarkable colon; suspect CT findings false-only, with some thicken ing due to nonspecific and not significant edema of the colonic wall. Overall, suspect his constipation and sense of incomplete evacuation is functional in nature (? maybe due to some prolonged effect of sorafenib ). Recommendation: - feed - buffcap IV - lactulose 20 g bid routinely - one dose of IV lasix, K - time Thank you for allowing me to help in the management of this patient. Attending Participation: I personally performed the entire procedure. Anita Paz MD Jackson Howard MD 04/26/2018 11:27:05 AM This report has been signed electronicallyPeter MD Anita Number of Addenda: 0 Note Initiated On: 04/26/2018 9:16 AM Total Procedure Duration Time 0 hours 28 minutes 16 seconds [email or web address]
--- NOTE | 2018-04-26 14:10 | SOAPPROG ---
SOAP Progress Note Assessment/Plan: Assessment: - Stage IV hepatocellular carcinoma (bone mets) - currently getting palliative XRT. - Colitis seen on CT - Dr. Howard's consult appreciated. Colonoscopy did not show significant colitis, just some mild edema. - Hx of Hepatitis C Plan: - continue palliative XRT - continue to hold sorafenib - bowel regimen per Dr. Howard Subjective: Some abdominal cramping. Objective: Vital Signs Temp Pulse Resp BP Pulse Ox 36.8 C 83 17 122/89 H 93 04/26/18 13:17 04/26/18 13:17 04/26/18 13:17 04/26/18 13:17 04/26/18 13:17 Laboratory Results 04/26/18 04:28 04/26/18 04:28 04/24/18 04/25/18 04/26/18 23:59 23:59 23:59 Intake Total 1000 1500 636 Balance 1000 1500 636 Physical Exam - Physical Exam Respiratory: lungs clear Cardiac/Chest: regular rate, rhythm Abdomen: distended, other (active bowel sounds) Skin: pallor ICD10 Worksheet Patient Problems: Problems Problem Status Onset Ascites Acute Colitis Acute Constipation Acute Abdominal pain Acute HCC (hepatocellular carcinoma) Acute Hypokalemia Acute
[2018-04-26] MEDS ORDERED: METOCLOPRAMIDE 5 MG TAB PO SCH ×2 (15:36→21:00)
[2018-04-26 15:48] VITALS: BP 122/82
[2018-04-26] MEDS: PANTOPRAZOLE SODIUM 40 MG TAB PO SCH (15:50)
--- NOTE | 2018-04-26 17:36 | PDDCSUM ---
Discharge Summary Discharge Summary: Date of Admission: 04/24/2018 Date of Discharge: 04/26/2018 Discharge Diagnoses: Colitis, resolved Severe constipation, resolved Abd pain, 2/2 above, resolved Stage IV hepatocellular carcinoma with bone metastasis Depression Bereavement Anemia Hypokalemia, resolved Possible cholecystitis Admission Diagnoses: Hypokalemia Constipation Metastatic hepatocellular carcinoma Depression GERD Consultants: Oncology-Dr. Marrero Hospital Course: The patient is a 62 year male with past medical history of stage IV hepatocellular carcinoma with metastasis to bone who returns to the hospital for constipation of 12 days and abdominal discomfort. He also reported loss of appetite and nausea. He had previously been hospitalized about 2 weeks prior and was told he may have cholecystitis and was recommended an appointment with General surgery. Patient underwent a colonoscopy during this hospital visit. He underwent bowel prep, which resolved the constipation. Colonoscopy was unremarkable, aside from mild edema of the gut. It was thought that patient's symptoms may be related to his chemotherapy sorafenib, which has been held. Patient continued to undergo daily radiation treatments for his metastases. Upon discharge, patient's levothyroxine was increased again because his last TSH was 15 on April 19. Physical Exam: Gen - alert, oriented, in NAD. GI: Mildly distended, nontender. Condition: Stable. Discharged to: Home. Pertinent tests/labs/imaging: Colonoscopy findings-entire examined colon appeared normal except for some edema which was not significant. CT of abdomen/pelvis with IV contrast: 1. Heterogeneous mass at the dome of the liver stable in appearance with stable heterogeneous enhancement of the right lobe of the liver and underlying cirrhosis. 2. Moderate ascites increased since the prior study with diffuse haziness of the omentum and mesentery that has developed. 3. Mildly distended and thickened gallbladder. This could be related to underlying liver disease and ascites. Findings are nonspecific. 4. Stable lytic mass right pedicle of T8 causing compression upon the spinal sac and cord as well as lytic lesion right inferior endplate of L4 and left posterior body to pedicle of S1. 5. Progressive thickening of the colon now extending from the hepatic flexure to the rectum. Consider colitis. Medications: Please see med rec form. Resume home meds. New meds include metoclopramide 5 mg orally twice a day. Synthroid 137 mcg orally daily on an empty stomach. Lactulose 20 mg orally twice a day for constipation. Special instructions: 1) Starting a new medication called Reglan. There is potential for this medicine to interact with Lexapro (escitalopram), so watch for adverse effects such as sweating, agitation, muscle tremors/hyperreflexia/rigidity, flushing, diarrhea, or other concerning symptoms. If this happens, stop taking the medications and see your physician. If symptoms are severe, go to the hospital. 2) For constipation, start lactulose (20g orally twice a day). If that does not work or tastes too sweet, try Milk of Magnesia (30ml orally twice a day) which is over the counter. There are some other meds you also can try over the counter : Senna, Colace, Miralax, Dulcolax, sorbitol, glycerin suppositories, or enemas. Start with one and if you are still constipated, add a 2nd. If you are still constipated, add a 3rd. 3) Let's increase your thyroid medication to 137mcg and have you recheck your TSH with your Oncologist in about 6 weeks. Follow up: Oncology - Dr. Garcia'leia Andorsky within 1 week. Neurosurgery-Dr. Zoraida Roberson in 1-2 days. Primary care physician-Dr. Herlinda Gonzalez as scheduled > 30 minutes of total time was spent on counseling and coordination of care for this patient's discharge.
[2018-04-26] MEDS ORDERED: LACTULOSE 20 GM/30 ML UDCUP PO SCH (21:00)
[2018-04-26] MEDS ORDERED: MAGNESIUM HYDROXIDE 30 ML UDCUP PO SCH (21:00)
== END 2018-04-26 18:50 | disposition home or self-care (01) ==
LOC: F1N 12:42
PROVIDERS: ADMIT Internal Medicine; ATTEND Internal Medicine
PROC: 0DJD8ZZ Inspection of Lower Intestinal Tract, Via Natural or Artificial Opening Endoscopic (ICD-10-PCS; principal; 2018-04-26 10:00)
DX: K52.9 Noninfective gastroenteritis and colitis, unspecified (principal); K59.00 Constipation, unspecified; C22.0 Liver cell carcinoma; C79.51 Secondary malignant neoplasm of bone; E86.9 Volume depletion, unspecified; E87.6 Hypokalemia; D64.9 Anemia, unspecified; R18.0 Malignant ascites; K82.9 Disease of gallbladder, unspecified; K74.60 Unspecified cirrhosis of liver; F32.9 Major depressive disorder, single episode, unspecified; K21.9 Gastro-esophageal reflux disease without esophagitis; E03.9 Hypothyroidism, unspecified; F41.9 Anxiety disorder, unspecified; Z87.442 Personal history of urinary calculi; Z86.19 Personal history of other infectious and parasitic diseases; Z63.4 Disappearance and death of family member; Z88.0 Allergy status to penicillin
CPT/HCPCS: 45378; 74177; 96361; 96374; 96375; 96376; 99285; G0378; 82435-PO; 82565-PO; 82947-PO; 84132-PO; 84295-PO; 84520-PO; 85014-PO; J1940; J2060; J2250; J3010; Q9967

== ENCOUNTER → 2018-06-08 | Outpatient (CLI) | payer OTHER ==
[~2018-06-08] MED LIST changes: -ALTEPLASE 2 MG VIAL IVP PRN; -FLUMAZENIL 0.5 MG/5 ML MDV IVP ONE; -FLUMAZENIL 0.5 MG/5 ML MDV IVP PRN; -GLUCAGON HCL 1 MG VIAL IVP PRN; -HEPARIN 10,000 UNIT/10 ML MDV (1,000 UNIT/ML) IVP PRN; -IOPAMIDOL (ISOVUE-300) 100 ML BTL ONE; +LIDOCAINE 1% 300 MG/30 ML SDV ONE; -MEPERIDINE 25 MG/ML SYR IVP PRN; -MIDAZOLAM 2 MG/2 ML VIAL IVP PRN; -MIDAZOLAM 2 MG/2 ML VIAL ONE; -NALOXONE HCL 0.4 MG/ML INJ IVP PRN; -NALOXONE HCL 0.4 MG/ML INJ ONE; -NS 1,000 ML IV ONE; -ONDANSETRON 4 MG/2 ML VIAL IVP PRN; -OXYCODONE/APAP 5/325 TAB PO PRN; -PANTOPRAZOLE SODIUM 40 MG VIAL IVP ONE; -PROTAMINE SULFATE 50 MG/5 ML VIAL IVP PRN; -fentaNYL 100 MCG/2 ML INJ IVP PRN; -fentaNYL 100 MCG/2 ML INJ ONE; -methylPREDNISolone SOD SUCC 125 MG/2 ML VIAL IVP ONE
== END ==
LOC: FIMAGING 13:31
PROVIDERS: ATTEND Radiology Vascular & Interventional Radiology
PROC: 0W9G3ZX Drainage of Peritoneal Cavity, Percutaneous Approach, Diagnostic (ICD-10-PCS; principal; 2018-06-08)
DX: R18.8 Other ascites (principal); C22.9 Malignant neoplasm of liver, not specified as primary or secondary; C79.51 Secondary malignant neoplasm of bone; R52 Pain, unspecified

== ENCOUNTER → 2018-06-15 | Outpatient (CLI) | payer OTHER | LOC: FIMAGING 10:01 | PROC: CP1Z1ZZ Planar Nuclear Medicine Imaging of Musculoskeletal System, All using Technetium 99m (Tc-99m) (ICD-10-PCS; principal; 2018-06-15) | DX: C79.51 Secondary malignant neoplasm of bone (principal); C22.9 Malignant neoplasm of liver, not specified as primary or secondary | CPT/HCPCS: 78306; A9503 ==

== ENCOUNTER 2018-06-26 10:29 | Inpatient (IN) | payer OTHER ==
[2018-06-26] MEDS ORDERED: ONDANSETRON 4 MG/2 ML VIAL IVP PRN (12:53)
--- NOTE | 2018-06-26 13:44 | PDGENHP ---
History and Physical History and Physical: CC: Severe fatigue and weakness, difficulty walking, some dyspnea, increasing abdominal distension HISTORY: This patient who has a history of advanced cirrhosis with ascites and hepatocellular carcinoma, comes in at this time transferred from his oncology clinic because of progressive severe weakness and fatigue over the last several days. He is able to walk across room but finds it to be quite sure to do so. He does get very winded with minimal activity. He does have increasing abdominal distension. There is no coughing chest pain or fevers. He has no nausea or vomiting. His appetite is diminished. He has no abdominal pain per se beyond just feeling distended. He does not have any symptoms of fever, no upper respiratory symptoms. And no urinary or bowel symptoms. He does not have any other new discomforts, neurologic symptoms, cardiac symptoms. He did have 3 L of ascites fluid removed about 3 and half weeks ago in the outpatient setting, this was tested and negative for any signs of malignancy. He also was recently here a few weeks before that with an episode of acute colitis. The cause of the colitis was not certain but he was started on dexamethasone 4 mg twice daily several weeks ago and has noticed improvement in his colitis symptoms with that. It is notable that he had had a TSH of 23 with abnormal thyroid hormone levels back in March but at this time has a normal TSH and free T4, slightly low free T3. ROS: A comprehensive 10 system review revealed no other significant findings PAST MEDICAL HISTORY: Hepatocellular carcinoma, stage IV Ascites Treated hepatitis-C virus Depression Anxiety Kidney stone Hypertension Hypothyroidism FAMILY MEDICAL HISTORY: No concerning or relevant issues at this time SOCIAL HISTORY: lives at home with his ; she is at the bedside with him here at this time. Notably she just had a cervical spine surgery 3 days ago and is wearing a rigid collar but is feeling much better since her surgery. 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 No tobacco, no alcohol MEDICATIONS: The patients list has been reconciled by our clinical pharmacist in the EMR. I have reviewed the list and ordered appropriate medicines. Notably the patient has diuretic regimen is Lasix 20 mg daily. PHYSICAL EXAMINATION: Vital Signs: All normal without fever Electrical Controls Technician: Examination: General: alert, oriented, good mentation, appears quite weak and exhausted Skin: warm, dry, very minimal jaundice at present, no rash HEENT: normal Neck: no mass or jvd Resps: relaxed Lungs: clear breath sounds Heart: regular, no murmur Abdomen: Distended, mildly tense but soft, with positive fluid wave, bowel sounds present but minimal, no palpable mass, mild epigastric tenderness and right lower quadrant tenderness but no rebound Upper Extremities: normal Lower Extremities: Pitting edema as high as the upper calf, warm with good color No Bleeding or bruising Neurologic: normal speech/language, normal quill stripper, no focal weakness IV site: looks normal LABORATORY DATA: Platelets 104 but these are increased from 70,000 week ago otherwise stable CBC Mildly elevated bilirubin and hepatic transaminases, alk-phos, are all approximately stable from other recent blood tests this month Electrolytes and renal function stable TSH normal, free T4 normal, free T3 slightly low RADIOLOGY STUDIES: He had a outpatient bone scan 4 days ago which I reviewed and there is no evidence of skeletal metastatic disease at this time ASSESSMENT: * Severe generalized fatigue and weakness, quite debilitating * Worsening abdominal ascites, likely due to cirrhosis and not a metastatic ascites; at this point this is causing dyspnea and poor appetite * Suspicion for SBP * Severe deconditioning and generalized weakness, poor functional status at this time * Stage IV hepatocellular carcinoma * Anxiety disorder/depression * Chronic hypertension At this point I think the major issue is ascites and volume overload. However I would be worried about SBP. I think we need to be much more aggressive about diuresing him and consider either regular paracentesis or placement of a port if the medications are ineffective. PLANS: * Admission hospital * Diagnostic and therapeutic paracentesis for today * Increased diuretics to Lasix 40 twice daily and Aldactone as well * Test paracentesis fluid for evidence of bacterial peritonitis and treat if there is sign of that * Reassess his functional status after that * I reviewed his case with Dr. Madeline Paez and she will see him here with me I have reviewed the patient's case in detail with Dr. Madeline Paez I have reviewed the patient's past medical records as part of this assessment, including previous hospitalization records and outpatient clinic records
[2018-06-26] MEDS ORDERED: LIDOCAINE 1% 300 MG/30 ML SDV ONE (14:15)
[2018-06-26] MEDS ORDERED: ALBUMIN 25% 200 ML IV ONE ×2 (14:36→18:00)
--- NOTE | 2018-06-26 15:28 | GCON ---
[f rep st] CONSULTATION NEW PATIENT CONSULTATION The patient's primary oncologist is Dr. Jose Marrero. PRIMARY DIAGNOSIS: Metastatic hepatocellular carcinoma. REASON FOR ADMISSION: Profound fatigue, weakness, abdominal pain and distention. HISTORY OF PRESENT ILLNESS: The patient is a 62-year-old gentleman with metastatic hepatocellular ca rcinoma. He has a longstanding history of hepatitis C. This was cured in 2016 with antiviral therap y had been administered by Dr. Lund. On routine screening MRI, he was found to have a mass in the right lobe of the liver. This was in August 2017. His AST was elevated to 900. A CT scan showed a 4. 5 x 4.8 cm lesion highly suspicious for hepatocellular carcinoma. There was a potential adjacent sat ellite lesion that was indeterminate. He underwent TACE procedure with Dr. Aldana at [facility] October 09. He was then evalua jacobo at [facility] for transplant. CT scan unfortunately revealed a new 1.4 cm lesion at L3 with cortical disruption as well as some potentially new or enlarging liver lesions. His AFP had risen dramatically to 2800. Dr. Aldana did a biopsy of L3 lesion which showed hepatocellular carcinoma. He started on sorafenib in mid October of 2017. His AFP continued to rise and a subsequent scan showed apparent progression of the liver, though no progression elsewhere. He elected to proceed with radio embolization. The Y90 procedure was done on January 26, 2018. He developed fatigue, appetite loss , and overall malaise afterwards. This was attributed to stopping his thyroid medication inadvertent ly, and he restarted it. He was admitted to the hospital in March 2018 with epigastric pain. He was diagnosed with gastrit is at the time. Fatigue has improved since hospitalization. He has also resumed his hypothyroid med ication. T3 has still been low. AFP was 3630 on May 10. He was seen in the office on 06/14/2018. He had recent restaging scans that I believe were in [facility] er, which I have reviewed myself. The liver lesion appeared to be stable. There was worsening cirrh osis and ascites, however, no bony abnormalities or finding within the chest. He did also have a bon e scan which showed no evidence of metastatic disease. He has had to hold the sorafenib the past cou ple weeks due to low platelets. However, his platelets today were 104. CBC is otherwise unremarkabl e. He notes increasing abdominal bloating as well as pain and severe weakness. Last paracentesis a couple weeks ago showed no evidence of metastatic carcinoma. CMP today showed a total bili of 3.4, which is higher for him. Alk phos was 227, AST 125, ALT 332, p hos 1.8, creatinine 0.6, glucose 134, sodium 135, potassium 3.7. I do note that his most recent AFP was 11,700, which continues to rise. The most recent TSH was 0.49 with a T3 of 1.79. REVIEW OF SYSTEMS: Other than above, patient denies fevers. He does report increasing shortness of breath and decrease in appetite. He has poor mobility. He reports increasing abdominal ascites and pain in the abdomen. PAST MEDICAL HISTORY: Hepatitis C, status post antiviral therapy; liver cancer, as detailed above; h istory of bone metastasis and pain. FAMILY HISTORY: Noncontributory. SOCIAL HISTORY: He is accompanied by his today. No current tobacco, alcohol, or drugs. MEDICATIONS: Reviewed in the EMR. He is only taking furosemide 20 daily, Synthroid 150 mcg daily. PHYSICAL EXAM: VITAL SIGNS: Show blood pressure of 128/89, pulse of 88, respiration rate 18, satura ting 92% on room air, temperature is 36.9. GENERAL: He is a somewhat cachectic, chronically ill yue earing 62-year-old gentleman. HEENT: Very faint icterus. Oropharynx slightly dry. HEART: Regular rate and rhythm. LUNGS: Decreased breath sounds at bases. ABDOMEN: He has a very distended abdom en with tense ascites, slightly tender to palpation throughout. LOWER EXTREMITIES: No significant e gayatri. LABS: As mentioned above. These labs were done at [facility] today and have been reviewed. ASSESSMENT AND PLAN: A 62-year-old gentleman with metastatic hepatocellular carcinoma admitted with severe weakness, fatigue, abdominal pain, and worsening ascites. 1. Fatigue and weakness, possibly multifactorial due to advanced cirrhosis/liver decompensation and/ or worsening disease. I will mention a CT scan was reviewed from March of 2018. This showed hete rogeneous mass in the dome of liver, stable in appearance with stable heterogeneous enhancement of ri ght lobe of the liver and underlying cirrhosis. Moderate ascites was mentioned. No new lytic lesion s. Bone scan, which was just completed June 15 showed no evidence of osseous metastatic diseas e. He does have a rising AFP above 11,000. 2. Ascites and abdominal pain. We will perform therapeutic and diagnostic paracentesis again to loo k for both evidence of metastatic disease and/or evidence of spontaneous bacterial peritonitis. Most recent Child-Honeycutt score was B. Although I do not have a more recent INR, his bilirubin has risen. 3. Decompensated liver failure due to underlying cirrhosis. Discussed with Dr. Cantrell today. We wi ll optimize diuretics, evaluate ascites for SBP. 4. Metastatic hepatocellular carcinoma. Need to recalculate Child-Honeycutt score as should not continue sorafenib if he has advanced to class C. With decline in performance status, may be optimal to eval uate for palliative care. Other options, if he should do better, would include immunotherapy if he h as documented progression. We will continue to evaluate in the hospital. 5. Hypothyroidism. Could be a component of his ascites and overall fatigue. We will monitor. We will continue to see patient daily and make recommendations as appropriate. More than 40 minutes was spent with patient and , more than 50% of time counseling, coordinating care. /[id number]/MODL
--- NOTE | 2018-06-26 17:03 | PDMN ---
Medical Necessity Medical necessity: Pt meets inpt criteria per MD order and [facility] [id number], Liver Disease Complications. A-2 days. 62 y/o w/hx adv cirrhosis and stage IV hepatocellular carcinoma presented to ED w/progressive/severe weakness and fatigue, dyspnea, and increasing abd distension, suspicion for spontaneous bacterial peritonitis. Diagnositic and therapeutic paracentesis today, R/O SBP, IV Lasix, onc consult. Anticipate>2Mn for ongoing eval/management of above.
[2018-06-26] MEDS: SPIRONOLACTONE 50 MG TAB PO SCH (18:03)
[2018-06-26] MEDS: FUROSEMIDE 40 MG TAB PO SCH (18:03)
[2018-06-26] MEDS: MELATONIN 3 MG TAB PO SCH (22:21)
[2018-06-27 06:21] LABS: INR 1.17 (0.83-1.16); PROTIME(PATIENT) 15.1 SEC (12.0-15.0)
[2018-06-27 06:31] LABS: PLATELET COUNT 71 10^3/uL (150-400)
[2018-06-27] MEDS ORDERED: POTASSIUM CL 10 MEQ TAB PO ONE (07:52)
[2018-06-27] MEDS: FUROSEMIDE 40 MG TAB PO SCH ×2 (08:36→15:17)
[2018-06-27] MEDS: SPIRONOLACTONE 50 MG TAB PO SCH (08:36)
--- NOTE | 2018-06-27 09:23 | ASMTCMCOM ---
CM Note CM Note Notes: Patient chart reviewed,. Multiple admissions since March. Patient suffers from cirrhosis and ascites in addition to hepatocellular carcinoma. He is stage IV. Uncertain if he has had palliative care consult but it would be clinically indicated at this time. CM to follow for needs. Previously discharged to home independently. Plan: TBD Date Signed: 06/27/2018 09:22 AM Electronically Signed By:Angelita Lindsey RN
[2018-06-27] MEDS: PANTOPRAZOLE SODIUM 40 MG TAB PO SCH ×2 (11:33→21:12)
[2018-06-27] MEDS: DEXAMETHASONE 4 MG TAB PO SCH ×2 (11:33→21:12)
[2018-06-27] MEDS: ESCITALOPRAM OXALATE 10 MG TAB PO SCH (11:33)
[2018-06-27] MEDS: LEVOTHYROXINE 150 MCG TAB PO SCH (11:33)
--- NOTE | 2018-06-27 11:42 | WOCRNPDOC ---
WOCRN Advanced Assessment Note - Skin Integrity Problem, Advanced Assess Sacrum Pressure Injury Dressing Type: Mepilex Border Dressing Description: Clean/Dry, Intact Exudate Amount: Minimal Exudate Color: Yellow, Brown Exudate Characteristic(s): Cloudy, Serosanguinous Integumentary Issue Intervention: Dressing Removed Tyra Wound Tissue: Erythema, Non-blanching, Painful/Tender Tyra Wound Swelling: Mild Wound Bed Color: Red, Yellow Wound Bed Constitution: Granulation Tissue (50%), Adhered Slough (50%) Wound Edges: Attached Site Measurement - Head-to-Toe Length X Width X Depth (cm): 1.7x1.4x0.2 R sacrum with smaller wound on L sacrum 0.3x0.4x0.2 by 1 cm. Pressure Injury Stage: Stage 3 Pressure Injury Present on Admit: Yes Skin Integrity Problem Comment: Sacral Mepilex removed and dried exudate cleaned from periwound skin with wash cloth/water for better visualization. Pt with bilateral sacral PI due to pt decreased mobility per and pt. Discussed with pt and importance of offloading areas for healing at all times. Positioning wedges to be used in bed and off loading cushion in chair. All questions answered. HAYDEE Bradshaw notified of care and plan. Amy OSEGUERA in room for care. Wound care will follow.
--- NOTE | 2018-06-27 12:33 | SOAPPROG ---
SOAP Progress Note Assessment/Plan: Assessment/Plan: 62 yo man w metastatic HCC admitted w fatigue/weakness as well as worsening ascites and abdominal pain 1. fatigue/weakness - No signs of infection or bleeding likely progressive metastatic dz last scans in 03/2108 w stable measurable dz but worsening cirrhosis/ascites however AFP now >11,000 also suggesting progression no severe encephalopathy 2. Ascites/Abd pain - s/p paracentesis; cytology pedning no e/o SBP trying to optimize diuretics 3. Decompensated liver failure - Child Honeycutt now Class C Sorafenib now contraindicated reason for decompensation likely from cancer no SBP or GIB pt would like GI consult - sees Dr Ashely francis hepatology; will call him myself 4. HCC- progressive do not think immunotherapy candidate w decline in PS, liver failure, and hypothyroidism palliative care recommended note that pt did not like last palliative consult 5.Hypothyroidism - cont current meds 6. Thrombocytopenia - due to increase in portal pressures/splenomegaly 7. Pain - requesting IV pain control 06/27/18 12:28 06/27/18 12:34 Subjective: Doing poorly feeling very fatigued and confused at time Objective: Vital Signs Temp Pulse Resp BP Pulse Ox 37.1 C 95 24 H 126/87 H 94 06/27/18 11:19 06/27/18 11:19 06/27/18 11:19 06/27/18 11:19 06/27/18 11:19 Microbiology 06/26/18 15:13 Gram Stain - Final Peritoneal Fluid - Aspirate Laboratory Results 06/27/18 06:00 06/27/18 06:00 06/26/18 06/27/18 06/28/18 05:59 05:59 05:59 Intake Total 1480 Output Total 4350 Balance -2870 PT 15.1 SEC (12.0-15.0) H 06/27/18 06:00 INR 1.17 (0.83-1.16) H 06/27/18 06:00 Gen - chronically ill appearing HEENT - mild icterus CV - RRR Resp -decreased BS at bases Abd - tense ascites Ext - no sig edema - Time Spent With Patient Time Spent With Patient: 25 min ICD10 Worksheet Patient Problems: Problems Problem Status Onset Abdominal pain Acute Ascites Acute Colitis Acute Constipation Acute HCC (hepatocellular carcinoma) Acute Hypokalemia Acute
--- NOTE | 2018-06-27 12:37 | ASMTCMCOM ---
CM Note CM Note Notes: Palliative care consult put in to [facility] and seen by Juan. Pt declined service. Case Management will continue to monitor for needs. Plan: TBD Date Signed: 06/27/2018 12:22 PM Electronically Signed By:Brianna Rodriguez
[2018-06-27] MEDS: morphINE 10 MG/0.5 ML UDSYR PO PRN ×3 (14:03→21:20)
[2018-06-27] MEDS: MELATONIN 3 MG TAB PO SCH (21:12)
--- NOTE | 2018-06-27 21:13 | HOSPPROG ---
Hospitalist Progress Note Assessment/Plan: DIAGNOSES: * Severe generalized fatigue and weakness, quite debilitating * Worsening abdominal ascites, likely due to cirrhosis and not a metastatic ascites; causing dyspnea and poor appetite * SBP ruled out by peritioneal fluid labs * Severe deconditioning and generalized weakness, poor functional status at this time * Stage IV hepatocellular carcinoma * Anxiety disorder/depression; quite depressed at this time, on medication * Chronic hypertension At this time can not find a definitive acute medical cause for presenting fatigue and weakness. Would be good to review with Dr Moreland. I would consider that depression is potentially causing some portion of these symptoms. Could have worsening nutrition due to decreased intake with his ascites. However it may be that he has progression of his cancer and that his poor functional status is due entirely to this. I have reviewed in detail with Dr Paez. She has discussed palliative options with the patient. PLANS: * further palliative options * review w gi * encourage po intake as able * consider increasing antidepression medication * comfort care measures seen on hospitalist rounds and multidisc rounds reviewed with Dr Paez today reviewed with palliative care team SUBJECTIVE: feels even weaker and more fatigued after paracentesis (a bit less than 4 L), despite finding it notably easier to get his breath no febrile symptoms still w significant anorexia a bit less abd discomfort, which is fairly minor at present OBJECTIVE: vitals:stable without fever exam: alert, oriented depressed affect no confusion skin warm dry, mild jaundice resps relaxed, clear BSs abd softer less distended, minimal tenderness still w leg edema little change overnight LAB DATA: only 50 wbc in peritoneal fluid, 9S% pmns, and albumin < 1 (non exudative fluid , not c/w SBP) platelets decreased to 70 K, otherwise stable cbc stable metabolic panel INR 1.1 MICRO: peritoneal fluid gram stain negative, culture negative at 24 hrs Objective: Vital Signs Temp Pulse Resp BP Pulse Ox 36.9 C 88 15 122/87 H 92 06/27/18 19:29 06/27/18 19:29 06/27/18 19:29 06/27/18 19:29 06/27/18 19:29 Microbiology 06/26/18 15:13 Gram Stain - Final Peritoneal Fluid - Aspirate Laboratory Results 06/27/18 06:00 06/27/18 06:00 06/26/18 06/27/18 06/28/18 06:59 06:59 06:59 Intake Total 1480 Output Total 4350 Balance -2870 PT 15.1 SEC (12.0-15.0) H 06/27/18 06:00 INR 1.17 (0.83-1.16) H 06/27/18 06:00 - Time Spent With Patient Time Spent with Patient: greater than 35 minutes Time Spent with Patient: Greater than 35 minutes spent on this patients care, greater than 50% of time spent counseling, educating, and coordinating care regarding the above mentioned plan. ICD10 Worksheet Patient Problems: Problems Problem Status Onset Abdominal pain Acute Ascites Acute Colitis Acute Constipation Acute HCC (hepatocellular carcinoma) Acute Hypokalemia Acute
[2018-06-27] MEDS: oxyCODONE IR 5 MG TAB PO SCH (22:35)
[2018-06-28] MEDS: morphINE 10 MG/0.5 ML UDSYR PO PRN ×7 (01:17→22:26)
[2018-06-28] MEDS: LEVOTHYROXINE 150 MCG TAB PO SCH (05:53)
[2018-06-28] MEDS: ESCITALOPRAM OXALATE 10 MG TAB PO SCH (08:50)
[2018-06-28] MEDS: PANTOPRAZOLE SODIUM 40 MG TAB PO SCH ×2 (08:51→20:27)
[2018-06-28] MEDS: DEXAMETHASONE 4 MG TAB PO SCH ×2 (08:51→20:27)
[2018-06-28] MEDS: FUROSEMIDE 40 MG TAB PO SCH ×2 (08:51→15:48)
[2018-06-28] MEDS: SPIRONOLACTONE 50 MG TAB PO SCH (08:51)
--- NOTE | 2018-06-28 11:36 | GCON ---
[f rep st] CONSULTATION GI INPATIENT CONSULTATION. DATE OF CONSULTATION: 06/28/2018 I was kindly requested to see the patient by Dr. Madeline Paez in consultation for a chief complaint of liver disease. He is an unfortunate 62-year-old white male with metastatic hepatocellular carcinoma. He is admitted to the hospital now with worsening fatigue, weakness. He has also worsening ascites, generalized abdominal pain. He has known hepatocellular metastatic carcinoma. Unfortunately, despite treatment, his alpha fetoprotein continues to rise, recently being as high as 11 ,000, and then 7 days later, 19,000. For his ascites, presently, he is on Lasix 40 mg twice a day, and Aldactone 50 mg daily. He had a 4 L paracentesis performed on this hospitalization. Results come back without signs of SBP. PAST MEDICAL HISTORY: 1. As above. 2. Hypertension. 3. Anxiety. 4. Depression. 5. Hypothyroidism. 6. Hepatitis C, with cure in 2017. 7. Otherwise, noncontributory. ALLERGIES: Include penicillin. INPATIENT MEDICATIONS: Include the above and Decadron, Protonix 40 mg twice a day, and Synthroid 150 mcg daily. SOCIAL HISTORY: He is . FAMILY HISTORY: Negative for similar ascites. REVIEW OF SYSTEMS: Positive pertinent review of systems as per my HPI. Otherwise, a complete review of systems is negative. PHYSICAL EXAM: CONSTITUTIONAL: Chronically ill-appearing gentleman. VITAL SIGNS: Stable. SKIN: Mildly jaundiced. Warm. EYES: Pupils equal, round, reactive to light and accommodation. EAR, NOSE, MOUTH, THROAT: Oropharynx without masses, moist mucosa. CARDIOVASCULAR: Normal S2, normal PMI. RESPIRATORY: Lungs clear to auscultation and percussion anteriorly. ABDOMEN: Mildly profuse, soft. NEUROLOGIC: Grossly nonfocal, cranial nerves grossly intact. PSYCHIATRIC: Orientation, insight appropriate. MUSCULOSKELETAL: Strength grossly normal throughout, normal station. LABORATORIES: Include the above. Normal basic metabolic panel. Hematocrit 39.5%. Platelet count 71,000. Prothrombin time 15.1. Bilirubin elevated to 3.4. Alkaline phosphatase elevated to 21. AST, ALT 125 and 332, which is close to his baseline. Normal free T4. Normal cortisol level. His CT scan of the abdomen and pelvis with IV contrast was on April 24. ASSESSMENT: 1. Increase in ascites due to worsening liver disease, due to almost certainly rapidly progressive hepatocellular carcinoma. 2. Abdominal pain, fatigue, weakness. Suspect unfortunately due to his rapidly worsening hepatocellular carcinoma, with his alpha fetoprotein going from 11,000 to 19,000 in just 7 days. This is also causing further decompensation of his liver. PLAN: 1. Agree with Lasix 40 mg twice a day. We will increase his Aldactone to 150 mg daily. 2. Otherwise, as per his oncologist and Hospitalist Service. With the above rapidly worsening hepatocellular carcinoma and secondary liver decompensation, I suspect he has a very poor prognosis. I will sign off. Please let me know if we can be of further help in the future. Thank you for allowing me to help in the care of this patient. /[id number]/MODL MTDD
--- NOTE | 2018-06-28 12:15 | SOAPPROG ---
SOAP Progress Note Assessment/Plan: Assessment/Plan: 62 yo man w metastatic HCC admitted w fatigue/weakness as well as worsening ascites and abdominal pain 1. fatigue/weakness - No signs of infection or bleeding progressive metastatic dz last scans in 03/2108 w stable measurable dz but worsening cirrhosis/ascites AFP dramatically rising almost certainly suggestive of progressive dz no severe encephalopathy 2. Ascites/Abd pain - s/p paracentesis; cytology pending no e/o SBP trying to optimize diuretics; appreciate Dr Howard 3. Decompensated liver failure - Child Honeycutt now Class C Sorafenib now contraindicated reason for decompensation likely from cancer no SBP or GIB 4. HCC- progressive do not think immunotherapy candidate w decline in PS, liver failure, and hypothyroidism palliative care recommended requesting hospice facility instead of home 5.Hypothyroidism - cont current meds 6. Thrombocytopenia - due to increase in portal pressures/splenomegaly 7. Pain - Roxanol started yesterday 06/28/18 12:15 Subjective: No acute events pain better Objective: Vital Signs Temp Pulse Resp BP Pulse Ox 36.7 C 79 16 122/88 H 93 06/28/18 04:01 06/28/18 11:55 06/28/18 11:55 06/28/18 11:55 06/28/18 11:55 Microbiology 06/26/18 15:13 Gram Stain - Final Peritoneal Fluid - Aspirate Laboratory Results 06/27/18 06:00 06/27/18 06:00 06/27/18 06/28/18 06/29/18 05:59 05:59 05:59 Intake Total 1480 300 Output Total 4350 225 Balance -2870 75 PT 15.1 SEC (12.0-15.0) H 06/27/18 06:00 INR 1.17 (0.83-1.16) H 06/27/18 06:00 Gen - NAD HEENT - mild icterus Abd - tense ascites Ext - no sig edema ICD10 Worksheet Patient Problems: Problems Problem Status Onset Abdominal pain Acute Ascites Acute Colitis Acute Constipation Acute HCC (hepatocellular carcinoma) Acute Hypokalemia Acute
--- NOTE | 2018-06-28 13:03 | ASMTCMCOM ---
CM Note CM Note Notes: Kelli samayoa [facility] met with patient and spoke w his on the phone. They are willing to discharge w hospice and prefer that patient go to a SNF rather than home. Kelli will meet with patient and tomorrow, 06/29, at 12:30 to explain in greater detail how the process works as well as the financial aspect. Case Management will continue to follow. Date Signed: 06/28/2018 01:02 PM Electronically Signed By:Blaire Merino RN
[2018-06-28] MEDS: oxyCODONE IR 5 MG TAB PO SCH (20:27)
[2018-06-28] MEDS: MELATONIN 3 MG TAB PO SCH (20:27)
--- NOTE | 2018-06-28 21:25 | HOSPPROG ---
Hospitalist Progress Note Assessment/Plan: DIAGNOSES: * Severe generalized fatigue and weakness, quite debilitating * Worsening abdominal ascites, likely due to cirrhosis and not a metastatic ascites; causing dyspnea and poor appetite * SBP ruled out by peritioneal fluid labs * Severe deconditioning and generalized weakness, poor functional status at this time * Stage IV hepatocellular carcinoma with significant progression * Anxiety disorder/depression * Chronic hypertension At this time only his malignancy can be found as a progressive medical problem that might be causing his presenting symptoms. I have very long discussions with the patient at the bedside about his goals of care, his desire to seek out physician assistant grocery that but his concerns about how that would be for his family and other issues. PLANS: * encourage po intake as able as well as increasing activity * comfort care measures * Ongoing efforts for arranging palliative care after discharge seen on hospitalist rounds and multidisc rounds reviewed with Dr Paez today reviewed with palliative care team SUBJECTIVE: Remains severely weak and fatigued, no real progress since coming here Is eating a bit better after paracentesis but still very poor appetite and no interest in food Somewhat less depressed today. He is now where that he has very progressive and untreatable cancer and is desiring to have palliative care in a setting not at his house He is very focused on making sure that as he makes choices for his care plan that his family does okay which is very important to him He remains interested in physician assisted OBJECTIVE: vitals:stable without fever exam: alert, oriented Affect is better today, he communicates more freely no confusion skin warm dry, mild jaundice resps relaxed, clear BSs abd softer less distended, minimal tenderness still w leg edema little change overnight LAB DATA: only 50 wbc in peritoneal fluid, 9S% pmns, and albumin < 1 (non exudative fluid , not c/w SBP) platelets decreased to 70 K, otherwise stable cbc stable metabolic panel INR 1.1 MICRO: peritoneal fluid gram stain negative, culture negative at 24 hrs Objective: Vital Signs Temp Pulse Resp BP Pulse Ox 36.9 C 101 H 18 125/89 H 91 L 06/28/18 19:15 06/28/18 19:15 06/28/18 19:15 06/28/18 19:15 06/28/18 19:15 Microbiology 06/26/18 15:13 Gram Stain - Final Peritoneal Fluid - Aspirate Laboratory Results 06/27/18 06:00 06/27/18 06:00 06/27/18 06/28/18 06/29/18 06:59 06:59 06:59 Intake Total 1480 300 700 Output Total 4350 225 Balance -2870 75 700 PT 15.1 SEC (12.0-15.0) H 06/27/18 06:00 INR 1.17 (0.83-1.16) H 06/27/18 06:00 - Time Spent With Patient Time Spent with Patient: greater than 35 minutes Time Spent with Patient: Greater than 35 minutes spent on this patients care, greater than 50% of time spent counseling, educating, and coordinating care regarding the above mentioned plan. ICD10 Worksheet Patient Problems: Problems Problem Status Onset Abdominal pain Acute Ascites Acute Colitis Acute Constipation Acute HCC (hepatocellular carcinoma) Acute Hypokalemia Acute
[2018-06-29] MEDS: morphINE 10 MG/0.5 ML UDSYR PO PRN ×7 (04:01→23:59)
[2018-06-29] MEDS: LEVOTHYROXINE 150 MCG TAB PO SCH (06:39)
[2018-06-29] MEDS: ESCITALOPRAM OXALATE 10 MG TAB PO SCH (08:59)
[2018-06-29] MEDS: SPIRONOLACTONE 50 MG TAB PO SCH (08:59)
[2018-06-29] MEDS: PANTOPRAZOLE SODIUM 40 MG TAB PO SCH ×2 (09:00→20:58)
[2018-06-29] MEDS: FUROSEMIDE 40 MG TAB PO SCH ×2 (09:00→15:05)
[2018-06-29] MEDS: DEXAMETHASONE 4 MG TAB PO SCH ×2 (09:00→20:58)
[2018-06-29] MEDS ORDERED: POLYETHYLENE GLYCOL 3350 17 GM PKT PO PRN (11:38)
[2018-06-29] MEDS ORDERED: LACTULOSE 20 GM/30 ML UDCUP PO PRN (11:38)
[2018-06-29] MEDS ORDERED: BISACODYL 10 MG SUPP PR PRN (11:38)
--- NOTE | 2018-06-29 13:41 | SOAPPROG ---
SOAP Progress Note Assessment/Plan: Assessment/Plan: 62 yo man w metastatic HCC admitted w fatigue/weakness as well as worsening ascites and abdominal pain 1. fatigue/weakness - No signs of infection or bleeding progressive metastatic dz last scans in 03/2108 w stable measurable dz but worsening cirrhosis/ascites AFP dramatically rising almost certainly suggestive of progressive dz no severe encephalopathy 2. Ascites/Abd pain - s/p paracentesis; cytology pending no e/o SBP trying to optimize diuretics; appreciate Dr Howard 3. Decompensated liver failure - Child Honeycutt now Class C Sorafenib now contraindicated reason for decompensation from cancer no SBP or GIB 4. HCC- progressive do not think immunotherapy candidate w decline in PS, liver failure, and hypothyroidism palliative care recommended meeting w hospice today 5.Hypothyroidism - cont current meds 6. Thrombocytopenia - due to increase in portal pressures/splenomegaly 7. Pain - Roxanol started yesterday 06/29/18 13:40 Subjective: pain controlled Objective: Vital Signs Temp Pulse Resp BP Pulse Ox 36.6 C 83 18 127/88 H 94 06/29/18 11:32 06/29/18 11:32 06/29/18 11:32 06/29/18 11:32 06/29/18 11:32 Microbiology 06/26/18 15:13 Gram Stain - Final Peritoneal Fluid - Aspirate Laboratory Results 06/27/18 06:00 06/27/18 06:00 06/28/18 06/29/18 06/30/18 05:59 05:59 05:59 Intake Total 300 900 Output Total 225 500 Balance 75 400 PT 15.1 SEC (12.0-15.0) H 06/27/18 06:00 INR 1.17 (0.83-1.16) H 06/27/18 06:00 Pt not examined today ICD10 Worksheet Patient Problems: Problems Problem Status Onset Abdominal pain Acute Ascites Acute Colitis Acute Constipation Acute HCC (hepatocellular carcinoma) Acute Hypokalemia Acute
[2018-06-29] MEDS: MAGNESIUM HYDROXIDE 30 ML UDCUP PO PRN (15:05)
--- NOTE | 2018-06-29 16:05 | ASMTCMCOM ---
CM Note CM Note Notes: Kelli penny/ Halima met w/ pt and his family. Family is interested in discharging to SNF with Hospice. Earliest d/c will be on Monday. Pt will most likely require a Braydon drain prior to discharging. Pt will need to be tapped regularly. Family will go tour [facility] and [facility]. Family is able to private pay for SNF. Referrals sent. Kelli will follow up on Monday. CM to follow. Date Signed: 06/29/2018 04:05 PM Electronically Signed By:DINA Hartman
--- NOTE | 2018-06-29 19:09 | HOSPPROG ---
Hospitalist Progress Note Assessment/Plan: DIAGNOSES: * Severe generalized fatigue and weakness, quite debilitating * Worsening abdominal ascites, likely due to cirrhosis and not a metastatic ascites; causing dyspnea and poor appetite * SBP ruled out by peritioneal fluid labs * Severe deconditioning and generalized weakness, poor functional status at this time * Stage IV hepatocellular carcinoma with significant progression * Anxiety disorder/depression * Chronic hypertension At this time only his malignancy can be found as a progressive medical problem that might be causing his presenting symptoms. I have very long discussions with the patient at the bedside about his goals of care, his desire to seek out physician retail administrative assistant that but his concerns about how that would be for his family and other issues. PLANS: * encourage po intake as able as well as increasing activity * comfort care measures * family is looking at centers where he can get hospice care, plan DC as arrangements are completed * for ascites, continue current diuretic doses * he is interested in a maksim drain, and I have reviewed w IR - they can do Monday if still here or as outpt, as indicated * he still has some interest in Medically Assissted , and has info on local practitioners, remains uncertain if this would be too hard for his * continue antidepressant seen on hospitalist rounds and multidisc rounds reviewed with Dr Paez today reviewed with palliative care team SUBJECTIVE: Remains severely weak and fatigued, no real progress since coming here Is eating a slightlyr after paracentesis but still very poor appetite OBJECTIVE: vitals:stable without fever exam: alert, oriented Affect is again better today, and he has a better outlook on possibilities for good palliative care and that his family will be ok no confusion skin warm dry, mild jaundice resps relaxed, clear BSs abd softer less distended, minimal tenderness still w leg edema but improved a bit Objective: Vital Signs Temp Pulse Resp BP Pulse Ox 36.9 C 86 18 130/92 H 94 06/29/18 16:00 06/29/18 16:00 06/29/18 16:00 06/29/18 16:00 06/29/18 16:00 Microbiology 06/26/18 15:13 Gram Stain - Final Peritoneal Fluid - Aspirate Laboratory Results 06/27/18 06:00 06/27/18 06:00 06/28/18 06/29/18 06/30/18 06:59 06:59 06:59 Intake Total 300 900 600 Output Total 225 500 400 Balance 75 400 200 PT 15.1 SEC (12.0-15.0) H 06/27/18 06:00 INR 1.17 (0.83-1.16) H 06/27/18 06:00 - Time Spent With Patient Time Spent with Patient: greater than 35 minutes Time Spent with Patient: Greater than 35 minutes spent on this patients care, greater than 50% of time spent counseling, educating, and coordinating care regarding the above mentioned plan. ICD10 Worksheet Patient Problems: Problems Problem Status Onset Abdominal pain Acute Ascites Acute Colitis Acute Constipation Acute HCC (hepatocellular carcinoma) Acute Hypokalemia Acute
[2018-06-29] MEDS: CALCIUM CARBONATE 500 MG CHEWABLE TAB PO PRN (20:57)
[2018-06-29] MEDS: SENNOSIDES/DOCUSATE SODIUM TAB PO SCH (20:57)
[2018-06-29] MEDS: MELATONIN 3 MG TAB PO SCH (20:58)
[2018-06-29] MEDS: oxyCODONE IR 5 MG TAB PO SCH (21:44)
[2018-06-30] MEDS: morphINE 10 MG/0.5 ML UDSYR PO PRN ×6 (03:45→21:18)
[2018-06-30] MEDS: CALCIUM CARBONATE 500 MG CHEWABLE TAB PO PRN ×2 (04:10→21:19)
[2018-06-30] MEDS: LEVOTHYROXINE 150 MCG TAB PO SCH (06:32)
[2018-06-30] MEDS: MAGNESIUM HYDROXIDE 30 ML UDCUP PO PRN (06:32)
[2018-06-30] MEDS: SPIRONOLACTONE 50 MG TAB PO SCH (09:47)
[2018-06-30] MEDS: DEXAMETHASONE 4 MG TAB PO SCH ×2 (09:47→21:17)
[2018-06-30] MEDS: SENNOSIDES/DOCUSATE SODIUM TAB PO SCH ×2 (09:47→21:17)
[2018-06-30] MEDS: FUROSEMIDE 40 MG TAB PO SCH ×2 (09:47→15:21)
[2018-06-30] MEDS: ESCITALOPRAM OXALATE 10 MG TAB PO SCH (09:47)
[2018-06-30] MEDS: PANTOPRAZOLE SODIUM 40 MG TAB PO SCH ×2 (09:47→21:17)
--- NOTE | 2018-06-30 12:42 | HOSPPROG ---
Hospitalist Progress Note Assessment/Plan: 62-year-old with advanced hepatocellular carcinoma and cirrhosis is admitted with increasing weakness. # severe generalized weakness and fatigue. Plan on transferring you to a facility with hospice on discharge. # worsening abdominal ascites likely due to cirrhosis causing secondary dyspnea and poor appetite * Increased diuretics today from Lasix 40 twice daily to 60 twice daily * Plan on Braydon drain for Monday prior to transfer # stage IV hepatocellular carcinoma with significant progression. Overall poor prognosis # anxiety and depression # history of hypertension Subjective: Patient new to me and chart reviewed. Comfortable however his abdominal distention has gotten slightly worse wonders about increasing his diuretic dose. Objective: Vital Signs Temp Pulse Resp BP Pulse Ox 36.8 C 87 16 131/87 H 94 06/30/18 07:20 06/30/18 07:20 06/30/18 07:20 06/30/18 07:20 06/30/18 07:20 Microbiology 06/26/18 15:13 Gram Stain - Final Peritoneal Fluid - Aspirate Laboratory Results 06/27/18 06:00 06/27/18 06:00 06/29/18 06/30/18 07/01/18 05:59 05:59 05:59 Intake Total 900 1150 Output Total 500 900 Balance 400 250 PT 15.1 SEC (12.0-15.0) H 06/27/18 06:00 INR 1.17 (0.83-1.16) H 06/27/18 06:00 - Physical Exam Constitutional: chronically ill appearing Eyes: PERRL, icteric sclera Cardiovascular: regular rate and rhythym Respiratory: no respiratory distress, reduced air movement (Bases) Gastrointestinal: ascites, distension Genitourinary: No cash in urethra Skin: No normal color Musculoskeletal: generalized weakness Neurologic: AAOx3 Psychiatric: interacting appropriately, not anxious ICD10 Worksheet Patient Problems: Problems Problem Status Onset Abdominal pain Acute Hypokalemia Acute Colitis Acute Constipation Acute Ascites Acute HCC (hepatocellular carcinoma) Acute
[2018-06-30] MEDS: oxyCODONE IR 5 MG TAB PO SCH (21:11)
[2018-06-30] MEDS: MELATONIN 3 MG TAB PO SCH (21:17)
[2018-07-01] MEDS: morphINE 10 MG/0.5 ML UDSYR PO PRN ×5 (00:16→22:51)
[2018-07-01] MEDS: ALTEPLASE 2 MG VIAL IVP PRN (03:46)
[2018-07-01] MEDS: LEVOTHYROXINE 150 MCG TAB PO SCH (06:28)
[2018-07-01] MEDS ORDERED: CALCIUM GLUCONATE 50 ML IV ONE (06:30)
[2018-07-01] MEDS: MAGNESIUM HYDROXIDE 30 ML UDCUP PO PRN (06:31)
[2018-07-01] MEDS: SPIRONOLACTONE 50 MG TAB PO SCH (09:31)
[2018-07-01] MEDS: ESCITALOPRAM OXALATE 10 MG TAB PO SCH (09:32)
[2018-07-01] MEDS: DEXAMETHASONE 4 MG TAB PO SCH ×2 (09:32→22:52)
[2018-07-01] MEDS: PANTOPRAZOLE SODIUM 40 MG TAB PO SCH ×2 (09:32→22:52)
[2018-07-01] MEDS: FUROSEMIDE 40 MG TAB PO SCH ×2 (09:32→14:44)
[2018-07-01] MEDS: SENNOSIDES/DOCUSATE SODIUM TAB PO SCH ×2 (09:32→22:52)
--- NOTE | 2018-07-01 10:34 | HOSPPROG ---
Hospitalist Progress Note Assessment/Plan: 62-year-old with advanced hepatocellular carcinoma and cirrhosis is admitted with increasing weakness. # severe generalized weakness and fatigue. Plan on transferring to a facility with hospice on discharge. # worsening abdominal ascites likely due to cirrhosis causing secondary dyspnea and poor appetite * Increased diuretics to 60 twice daily * Plan on Manderson drain for Monday prior to transfer * Tolerated the increased dose of Lasix, electrolytes stable # stage IV hepatocellular carcinoma with significant progression. Overall poor prognosis # anxiety and depression # history of hypertension Subjective: Patient states he feels okay today. Denies pain abdominal distention is still present but tolerable Objective: Vital Signs Temp Pulse Resp BP Pulse Ox 36.9 C 83 16 120/81 H 94 07/01/18 07:48 07/01/18 07:48 07/01/18 07:48 07/01/18 07:48 07/01/18 07:48 Microbiology 06/26/18 15:13 Gram Stain - Final Peritoneal Fluid - Aspirate Laboratory Results 06/27/18 06:00 07/01/18 05:30 06/30/18 07/01/18 07/02/18 05:59 05:59 05:59 Intake Total 1150 1100 Output Total 900 475 200 Balance 250 625 -200 PT 15.1 SEC (12.0-15.0) H 06/27/18 06:00 INR 1.17 (0.83-1.16) H 06/27/18 06:00 - Physical Exam Constitutional: chronically ill appearing Eyes: PERRL Ears, Nose, Mouth, Throat: moist mucous membranes Cardiovascular: regular rate and rhythym Respiratory: no respiratory distress, reduced air movement (Bases) Gastrointestinal: ascites, distension Genitourinary: no bladder fullness Skin: warm Musculoskeletal: generalized weakness Psychiatric: interacting appropriately ICD10 Worksheet Patient Problems: Problems Problem Status Onset Abdominal pain Acute Hypokalemia Acute Colitis Acute Constipation Acute Ascites Acute HCC (hepatocellular carcinoma) Acute
[2018-07-01] MEDS ORDERED: diphenhydrAMINE 25 MG CAP PO PRN (17:14)
[2018-07-01] MEDS: MELATONIN 3 MG TAB PO SCH (22:52)
[2018-07-01] MEDS: oxyCODONE IR 5 MG TAB PO SCH (23:21)
[2018-07-02] MEDS: morphINE 10 MG/0.5 ML UDSYR PO PRN ×3 (03:26→19:37)
[2018-07-02] MEDS: LEVOTHYROXINE 150 MCG TAB PO SCH (04:34)
[2018-07-02] MEDS ORDERED: METHYLNALTREXONE BROMIDE 12 MG/0.6 ML INJ SC ONE (10:30)
[2018-07-02] MEDS: SPIRONOLACTONE 50 MG TAB PO SCH (10:31)
[2018-07-02] MEDS: ESCITALOPRAM OXALATE 10 MG TAB PO SCH (10:32)
[2018-07-02] MEDS: FUROSEMIDE 40 MG TAB PO SCH ×2 (10:32→16:45)
[2018-07-02] MEDS: PANTOPRAZOLE SODIUM 40 MG TAB PO SCH ×2 (10:32→21:25)
[2018-07-02] MEDS: DEXAMETHASONE 4 MG TAB PO SCH ×2 (10:33→21:26)
[2018-07-02] MEDS: SENNOSIDES/DOCUSATE SODIUM TAB PO SCH ×2 (10:33→21:25)
--- NOTE | 2018-07-02 11:18 | WOCRNPDOC ---
WOCRN Advanced Assessment Note - Skin Integrity Problem, Advanced Assess Sacrum Pressure Injury Dressing Type: Open to Air Exudate Amount: Scant Exudate Characteristic(s): Serosanguinous Integumentary Issue Intervention: Dressing Applied, Dressing Initialed & Dated Mark Wound Tissue: Erythema (mark wound ) Wound Bed Color: [place] (100%) Wound Bed Constitution: Granulation Tissue Wound Edges: Epithelizing, Not Attached Site Measurement - Head-to-Toe Length X Width X Depth (cm): right sacral: 1.4x1x0.3, Left: healed. Pressure Injury Stage: Stage 3 Pressure Injury Present on Admit: Yes Skin Integrity Problem Comment: Present on admission bilateral sacral pressure injuries. The left stage 3 has healed/closed. Right sacral wound has reduced in size, although wound bed was likely a bit too dry. Continue plan of care. Wound care will follow. Donnie HUBBARD performed wound care and Kelli HUBBARD in room. All patient and family questions answered. Bilateral Elbow Dressing Type: Open to Air Mark Wound Tissue: Blanching, Erythema Skin Integrity Problem Comment: Heelbo's will be provided to reduce friction on elbows. No pressure injury present at this time.
--- NOTE | 2018-07-02 14:00 | ASMTCMCOM ---
CM Note CM Note Notes: Patient and family have elected [facility] for [facility]. [facility] liasion was here today to help them complete paperwork. He will d/c there after he has Grundy drain placed, possibly tomorrow 07/03. [facility] will follow; I have notified them of plan. Case Management will assist w discharge. Date Signed: 07/02/2018 02:00 PM Electronically Signed By:Blaire Merino RN
--- NOTE | 2018-07-02 15:00 | HOSPPROG ---
Hospitalist Progress Note Assessment/Plan: 62-year-old with advanced hepatocellular carcinoma and cirrhosis is admitted with increasing weakness. # severe generalized weakness and fatigue. Plan on transferring to a facility with hospice on discharge. # worsening abdominal ascites likely due to cirrhosis causing secondary dyspnea and poor appetite * Increased diuretics to 60 twice daily * Plan on Rhododendron drain for Monday prior to transfer * Tolerated the increased dose of Lasix, electrolytes stable * Rhododendron drain planned for tomorrow. # Constipation. likely multifactorial. On narcotics will try Relistor and if no improvement add laxitives in next few days. # stage IV hepatocellular carcinoma with significant progression. Overall poor prognosis # anxiety and depression # history of hypertension Subjective: Quite constipated last BM 10 days ago. Otherwise pain is well controlled. Objective: Vital Signs Temp Pulse Resp BP Pulse Ox 36.6 C 99 14 135/89 H 98 07/02/18 08:08 07/02/18 08:08 07/02/18 08:08 07/02/18 08:08 07/02/18 08:08 Microbiology 06/26/18 15:13 Gram Stain - Final Peritoneal Fluid - Aspirate Laboratory Results 07/02/18 03:36 07/02/18 03:36 07/01/18 07/02/18 07/03/18 05:59 05:59 05:59 Intake Total 1100 900 Output Total 475 850 100 Balance 625 50 -100 PT 15.1 SEC (12.0-15.0) H 06/27/18 06:00 INR 1.17 (0.83-1.16) H 06/27/18 06:00 - Physical Exam Constitutional: chronically ill appearing, uncomfortable Eyes: PERRL Ears, Nose, Mouth, Throat: moist mucous membranes Cardiovascular: regular rate and rhythym Respiratory: no respiratory distress Gastrointestinal: ascites, distension Genitourinary: no bladder fullness Skin: No normal color Musculoskeletal: generalized weakness Neurologic: No facial droop Psychiatric: interacting appropriately, encephalopathic (Very mild) ICD10 Worksheet Patient Problems: Problems Problem Status Onset Abdominal pain Acute Hypokalemia Acute Colitis Acute Constipation Acute Ascites Acute HCC (hepatocellular carcinoma) Acute
[2018-07-02] MEDS: oxyCODONE IR 5 MG TAB PO SCH (21:24)
[2018-07-02] MEDS: MELATONIN 3 MG TAB PO SCH (21:26)
[2018-07-03] MEDS: morphINE 10 MG/0.5 ML UDSYR PO PRN ×3 (01:16→17:22)
[2018-07-03] MEDS: LEVOTHYROXINE 150 MCG TAB PO SCH (06:00)
[2018-07-03 06:54] LABS: INR 1.39 (0.83-1.16); PROTIME(PATIENT) 16.5 SEC (12.0-15.0)
[2018-07-03] MEDS: ALTEPLASE 2 MG VIAL IVP PRN (08:41)
[2018-07-03] MEDS ORDERED: LIDOCAINE 1% 300 MG/30 ML SDV ONE (09:01)
[2018-07-03] MEDS ORDERED: NALOXONE HCL 0.4 MG/ML INJ IVP PRN (09:03)
[2018-07-03] MEDS ORDERED: HEPARIN 10,000 UNIT/10 ML MDV (1,000 UNIT/ML) IVP PRN (09:03)
[2018-07-03] MEDS ORDERED: FLUMAZENIL 0.5 MG/5 ML MDV IVP PRN (09:03)
[2018-07-03] MEDS ORDERED: PROTAMINE SULFATE 50 MG/5 ML VIAL IVP PRN (09:03)
[2018-07-03] MEDS ORDERED: fentaNYL 100 MCG/2 ML INJ IVP PRN (09:03)
[2018-07-03] MEDS ORDERED: MIDAZOLAM 2 MG/2 ML VIAL IVP PRN (09:03)
[2018-07-03] MEDS ORDERED: GLUCAGON HCL 1 MG VIAL IVP PRN (09:03)
[2018-07-03] MEDS ORDERED: ceFAZolin 2 GM/DEXTROSE 100 ML IV ONE (09:11)
[2018-07-03] MEDS ORDERED: fentaNYL 100 MCG/2 ML INJ ONE (09:15)
[2018-07-03] MEDS ORDERED: NS 1,000 ML IV SCH (09:15)
[2018-07-03] MEDS ORDERED: FLUMAZENIL 0.5 MG/5 ML MDV IVP ONE (09:15)
[2018-07-03] MEDS ORDERED: NALOXONE HCL 0.4 MG/ML INJ ONE (09:15)
[2018-07-03] MEDS ORDERED: MIDAZOLAM 2 MG/2 ML VIAL ONE (09:15)
--- NOTE | 2018-07-03 10:00 | PDHPUP ---
History & Physical Update H&P update statement: This history and physical update is based on an assessment of the patient which was completed after admission or registration (within 24 hours), but prior to the surgery/procedure. 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 Plan for PleurX catheter H&P update: H&P reviewed & patient examined, no change in patient's condition since H&P completed
--- NOTE | 2018-07-03 10:00 | PDPROPOC ---
Sedation Plan of Care Sedation Plan of Care: vital signs stable, mental status noted ASA Classification: ASA 3 Planned drugs: fentanyl, midazolam Mallampati Score: Class 2 Mallampati Reference Image: Patient passed 3-3-2 rule?: Yes
--- NOTE | 2018-07-03 10:05 | HOSPPROG ---
Hospitalist Progress Note Assessment/Plan: 62-year-old with advanced hepatocellular carcinoma and cirrhosis is admitted with increasing weakness. # severe generalized weakness and fatigue. Plan on transferring to a facility with hospice on discharge. # worsening abdominal ascites likely due to cirrhosis causing secondary dyspnea and poor appetite * Increased diuretics to 60 twice daily * Plan on Morgan drain today * Tolerated the increased dose of Lasix, electrolytes stable * Morgan drain planned for tomorrow. # Constipation. likely multifactorial. On narcotics will try Relistor and if no improvement add laxitives in next few days. # stage IV hepatocellular carcinoma with significant progression. Overall poor prognosis # anxiety and depression # history of hypertension Subjective: Slightly encephalopathic this morning. Waiting to get his Braydon drain, no complaints otherwise Objective: Vital Signs Temp Pulse Resp BP Pulse Ox 36.5 C 87 16 127/88 H 94 07/03/18 08:10 07/03/18 08:10 07/03/18 08:10 07/03/18 08:10 07/03/18 08:10 Microbiology 06/26/18 15:13 Gram Stain - Final Peritoneal Fluid - Aspirate Anaerobic Culture - Final Laboratory Results 07/03/18 06:30 07/03/18 06:30 07/02/18 07/03/18 07/04/18 05:59 05:59 05:59 Intake Total 900 1300 Output Total 850 1250 100 Balance 50 50 -100 PT 16.5 SEC (12.0-15.0) H 07/03/18 06:30 INR 1.39 (0.83-1.16) H 07/03/18 06:30 - Physical Exam Constitutional: chronically ill appearing Eyes: PERRL Ears, Nose, Mouth, Throat: moist mucous membranes Cardiovascular: regular rate and rhythym Respiratory: no respiratory distress Gastrointestinal: ascites Skin: warm Psychiatric: encephalopathic ICD10 Worksheet Patient Problems: Problems Problem Status Onset Abdominal pain Acute Hypokalemia Acute Colitis Acute Constipation Acute Ascites Acute HCC (hepatocellular carcinoma) Acute
--- NOTE | 2018-07-03 10:32 | PDRADPN ---
Radiology Procedure Note Date of Procedure: 07/03/18 Radiologist: Teddy Amezcua Anesthesia: IV Sedation Pre-op Diagnosis: ESLD Post-op Diagnosis: ESLD Indication: HCC; refractory ascites. Being D/C to hospice Procedure: PleurX peritoneal catheter Finding(s): RLQ PleurX catheter placement without complication Inf/Abcess present in the surg proc area at time of surgery?: No
--- NOTE | 2018-07-03 12:30 | PDIAF ---
- Diagnosis Diagnosis: metastatic liver cancer, recurrent ascites Code Status: Do Not Resuscitate - Medication Management Discharge Medications: electronically signed and located in the Home Medication List. - Orders Services needed: Registered Nurse, Certified Food Checkers And Cashiers Supervisor (hospice) Isolation Type: None Diet Recommendation: sodium restricted Diet Texture: Regular Texture Diet Additional Instructions: Bedsore (Pressure injury) care: You have a stage 3 pressure injury (also known as a bedsore) on the very lowest part of your back (the sacrum). To help heal this/these wound/s and avoid further injury please do the following: Reposition yourself frequently, at least every 15 minutes when sitting. Try to stand for at least 3 min every hour so that the tissues fully re-perfuse with blood. We recommend sitting on an air cushion. Please never use a doughnut. When youre in bed, try to rest on your side as much as possible, and change position every two hours (for example, turn or tilt from your right side toward your left).~ If you sleep on a sleep number or medical bed, keep the head of the bed below 30 degrees and keep all pressure off your low back for at least 5 minutes at least every two hours.~ As needed, you may use Calazime, dimethicone moisture barrier cream, or any kygb-rfo-oetmcis diaper rash cream to help prevent/treat a moisture-related rash to your bottom area and buttocks. Please contact [facility] for an appointment, at [phone], for follow up within 2-3 weeks. , if your wounds dont improve, or if you have any further questions or concerns. Change dressings to Sacrum every 3 days and as needed 1. Clean with ns and gauze or in shower with soap and water 2. Skin prep mark wound 3. Wound gel to wound bed 4. Cover with Mepilex Border Sacrum Amy Torab CWON - Follow Up Care Current Providers and Referrals: Patient,NotPresent [Primary Care Provider] -
--- NOTE | 2018-07-03 12:57 | ASMTCMCOM ---
CM Note CM Note Notes: Patient plan of care reviewed in am rounds. Palliative maksim drain placed this am. Patient has been accepted to [facility] with Hospice care via [facility]. Family has appointment at 4pm. They family wishes he be transferred earlier or later. I have realyed this information to Kelli Parra and she will contact [facility]. Per [facility] patient can transfer at 2 pm . Final orders via allscripts. CM available should other needs arise. Plan: DC to SNF with hospice Date Signed: 07/03/2018 12:57 PM Electronically Signed By:Angelita Lindsey RN
--- NOTE | 2018-07-03 12:58 | ASMTLACE ---
LACE Length of stay for Answers: 7-13 days current admission Comorbidities - select Answers: Any tumor (including all that apply lymphoma or leukemia) Other Notes: Hep C; HTN; Hypothyroid # of Emergency department Answers: 1-2 visits in the last 6 months Social determinants Answers: Mental health diagnosis (anxiety, depression, pers onality disorders, etc.) Score: 12 Date Signed: 07/03/2018 12:57 PM Electronically Signed By:Angelita Lindsey RN
[2018-07-03] MEDS: DEXAMETHASONE 4 MG TAB PO SCH (13:12)
[2018-07-03] MEDS: ESCITALOPRAM OXALATE 10 MG TAB PO SCH (13:13)
[2018-07-03] MEDS: FUROSEMIDE 40 MG TAB PO SCH ×2 (13:13→20:30)
[2018-07-03] MEDS: PANTOPRAZOLE SODIUM 40 MG TAB PO SCH (13:14)
[2018-07-03] MEDS: SENNOSIDES/DOCUSATE SODIUM TAB PO SCH (13:14)
[2018-07-03] MEDS: SPIRONOLACTONE 50 MG TAB PO SCH (13:14)
--- NOTE | 2018-07-03 13:42 | GDS ---
[f rep st] DISCHARGE SUMMARY DIAGNOSES: 1. Recurrent abdominal ascites. 2. Metastatic advanced hepatocellular carcinoma complicated with cirrhosis. 3. Weakness and deconditioning. 4. Constipation. 5. Anxiety and depression. PROCEDURES DONE: 1. PleurX peritoneal catheter placed. 2. Paracentesis, ultrasound guided. 3. Peripherally inserted central catheter line. CONSULTATIONS: Include oncology, Dr. Madeline Paez, and GI, Dr. Jackson Howard. HOSPITAL COURSE: The patient is a 62-year-old man with advanced hepatocellular carcinoma, complicate d by cirrhosis and recurrent ascites. He comes in with increasing weakness and abdominal distention. He underwent ultrasound-guided thoracentesis which revealed no spontaneous bacterial peritonitis, a nd his medications were adjusted to try and obtain decreased recurrence of his ascites. However, it did recur with increased distention, so Interventional Radiology was consulted and placed a drain. T he patient is on hospice and will be discharged to [facility] with hospice for end of li fe care. The drain was placed for symptomatic reasons to help drain ascites when it recurs. CONDITION ON DISCHARGE: Terminal. DISCHARGE MEDICATIONS: Please see discharge medication form. FOLLOWUP: He will discharge to [facility]. Total time spent with the patient on day of discharge and coordination of care is 35 minutes. /[id number]/MODL
[2018-07-03 15:18] VITALS: BP 135/86
--- NOTE | 2018-07-09 08:32 | PQFORM ---
PHYSICIAN QUERY FORM Needs Your Response This query form is being sent to you to assure this patient record is coded properly. Please respond to the question below: FILM CREW MEMBER QUESTION: Dr Lopez There are 2 progress notes (06/22; 07/02) indicating the presence of a Stage 3 Sacral pressure Ulcer present on admission however there is no mention of this in the Discharge Summary. Do you agree with this Diagnosis? _x_ Yes __ No __ Other (Please Specify ) __ Unable to determine Thank You Fabiola ARMENDARIZ Bar Back INSTRUCTIONS FOR RESPONSE: Answer question by clicking on the "Edit Document" button. Move cursor to area below the stars. When complete, hit "Save." Click on the "Sign" button, then click "Sign" again. Type in your PIN and hit "Enter." MTDD
== END 2018-07-03 17:55 | DRG 432 ==
LOC: F1N 11:39 → OBSVTOIN 12:54
PROVIDERS: ADMIT Internal Medicine; ATTEND Internal Medicine
PROC: 0W9G3ZZ Drainage of Peritoneal Cavity, Percutaneous Approach (ICD-10-PCS; 2018-06-26)
PROC: 02HV33Z Insertion of Infusion Device into Superior Vena Cava, Percutaneous Approach (ICD-10-PCS; 2018-06-26)
PROC: 0W9G30Z Drainage of Peritoneal Cavity with Drainage Device, Percutaneous Approach (ICD-10-PCS; principal; 2018-07-03 10:35)
DX: K74.4 Secondary biliary cirrhosis (principal); R18.8 Other ascites; C22.0 Liver cell carcinoma; K59.00 Constipation, unspecified; L89.153 Pressure ulcer of sacral region, stage 3; F41.8 Other specified anxiety disorders; E03.9 Hypothyroidism, unspecified; I10 Essential (primary) hypertension; Z86.19 Personal history of other infectious and parasitic diseases
CPT/HCPCS: 97110-GP; 97116-GP; 97161-GP; 97165-GO; 97535-GO; C1751; C1769; C2617; J0610; J0690; J2212; J2250; J2310; J2997; J3010; P9047